=== PATIENT | female | born 1980 | race Caucasian/White ===

== ENCOUNTER → 2020-02-05 13:51 | Outpatient (BNVA) | payer OTHER, SELFPAY | PROVIDERS: Visit Provider Nurse Practitioner Gerontology | DX: E11.42 Type 2 diabetes mellitus with diabetic polyneuropathy (principal); Z79.4 Long term (current) use of insulin; E78.5 Hyperlipidemia, unspecified; E66.09 Other obesity due to excess calories; Z68.32 Body mass index [BMI] 32.0-32.9, adult | CPT/HCPCS: 82947; 99214 ==

== ENCOUNTER → 2020-03-16 14:05 | Outpatient (BNVA) | payer OTHER, SELFPAY | PROVIDERS: Referring Provider Internal Medicine; Visit Provider Nurse Practitioner Gerontology | DX: Z76.89 Persons encountering health services in other specified circumstances (principal) ==

== ENCOUNTER → 2020-05-02 11:17 | Outpatient (BNVA) | payer OTHER, SELFPAY | PROVIDERS: PCP Internal Medicine; Visit Provider Nurse Practitioner Gerontology | DX: Z76.89 Persons encountering health services in other specified circumstances (principal) ==

== ENCOUNTER → 2020-05-18 13:51 | Outpatient (BNVA) | payer OTHER, SELFPAY | PROVIDERS: PCP Internal Medicine; Visit Provider Nurse Practitioner Gerontology ==

== ENCOUNTER 2020-06-02 08:17 | Outpatient (REF) | payer OTHER, SELFPAY ==
[2020-06-02 09:17] LABS: Alanine Aminotransferase 9 U/L (0-31); Albumin Level 4.4 g/dL (3.5-5.0); Alkaline Phosphatase 100 U/L (39-117); Anion Gap 14 (12-20); Aspartate Amino Transferase 8 U/L (5-31); Bilirubin Total 0.2 mg/dL (0.0-1.0); Blood Urea Nitrogen 22 mg/dL (9-16); Calcium 9.7 mg/dL (8.4-10.2); Carbon Dioxide 25 mmol/L (22-29); Chloride 103 mmol/L (96-108); Cholesterol 186 mg/dL; Estimated Glomerular Filt Rate > 60; Glucose Fasting 215 mg/dL (60-99); HDL Cholesterol 36 mg/dL; LDL Cholesterol Calculated 115 mg/dl; Sodium 138 mmol/L (135-145); Total Protein 7.2 g/dL (6.5-8.0); Triglycerides 176 mg/dL
[2020-06-02 09:19] LABS: Estimated Average Glucose 278 mg/dL; Hemoglobin A1c % 11.3 %
[2020-06-02 10:09] LABS: Creatinine Urine 325.31 mg/dL; Microalbum/Creatinine Ratio Ur 94.6 ug/mg cr
[2020-06-03 04:52] LABS: LDL Cholesterol Direct 126 mg/dL (<100)
[2020-06-03 23:06] LABS: Adrenocorticotropic Hormone <5 pg/mL (6-50)
[2020-06-08 09:33] LABS: Dexamethasone 109 ng/dL
== END 2020-06-02 08:18 | disposition home or self-care (01) ==
LOC: HO.10HDL 08:17
PROVIDERS: Visit Provider Nurse Practitioner Gerontology
DX: E11.42 Type 2 diabetes mellitus with diabetic polyneuropathy (principal); Z79.4 Long term (current) use of insulin
CPT/HCPCS: 36415; 80053; 80061; 80299; 82024; 82043; 82533; 83036; 83721

== ENCOUNTER → 2020-06-29 13:21 | Outpatient (BNVA) | payer OTHER, SELFPAY | PROVIDERS: PCP Internal Medicine; Visit Provider Nurse Practitioner Gerontology ==

== ENCOUNTER → 2020-12-22 09:57 | Outpatient (BNVA) | payer OTHER, SELFPAY | PROVIDERS: PCP Internal Medicine; Visit Provider Nurse Practitioner Gerontology | DX: E11.42 Type 2 diabetes mellitus with diabetic polyneuropathy (principal); E78.5 Hyperlipidemia, unspecified; I10 Essential (primary) hypertension; E66.01 Morbid (severe) obesity due to excess calories; F40.00 Agoraphobia, unspecified; F17.210 Nicotine dependence, cigarettes, uncomplicated; Z68.33 Body mass index [BMI] 33.0-33.9, adult; Z88.8 Allergy status to other drugs, medicaments and biological substances; Z79.4 Long term (current) use of insulin; Z79.899 Other long term (current) drug therapy | CPT/HCPCS: 82947 ==

== ENCOUNTER → 2021-04-13 09:00 | Outpatient (BNVA) | payer MEDICARE, MEDICAID, SELFPAY | PROVIDERS: PCP Internal Medicine; Visit Provider Nurse Practitioner Gerontology | DX: E11.42 Type 2 diabetes mellitus with diabetic polyneuropathy (principal); E78.5 Hyperlipidemia, unspecified; E66.09 Other obesity due to excess calories; I10 Essential (primary) hypertension; M79.89 Other specified soft tissue disorders; Z79.4 Long term (current) use of insulin; Z68.33 Body mass index [BMI] 33.0-33.9, adult | CPT/HCPCS: 82947; 83036; 99212 ==

== ENCOUNTER 2021-04-20 11:49 | Outpatient (REF) | payer MEDICARE, MEDICAID, SELFPAY ==
--- NOTE | ~2021-04-20 | XR_ITS ---
EXAMINATION: XR FOOT, RIGHT CLINICAL INFORMATION: Other specified soft tissue disorders. COMPARISON: None TECHNIQUE: AP, lateral, and oblique views of the right foot. FINDINGS: No fracture. Alignment is anatomic. Joint spaces are maintained. A moderate-sized enthesopathic spur is present at the plantar fascial origin on the calcaneus. XR/XR foot RT min 3V IMPRESSION: No acute osseous abnormalities in the right foot. Moderate-sized plantar calcaneal enthesopathic spur.
[2021-04-20 13:08] LABS: Creatinine Urine 265.48 mg/dL; Microalbum/Creatinine Ratio Ur 112.6 ug/mg cr
[2021-04-20 13:21] LABS: Alanine Aminotransferase 13 U/L (0-31); Albumin Level 4.4 g/dL (3.5-5.0); Alkaline Phosphatase 93 U/L (39-117); Anion Gap 18 (12-20); Aspartate Amino Transferase 13 U/L (5-31); Bilirubin Total 0.6 mg/dL (0.0-1.0); Blood Urea Nitrogen 21 mg/dL (9-16); Carbon Dioxide 20 mmol/L (22-29); Chloride 106 mmol/L (96-108); Cholesterol 179 mg/dL; Estimated Glomerular Filt Rate > 60; Glucose Fasting 172 mg/dL (60-99); HDL Cholesterol 37 mg/dL; LDL Cholesterol Calculated 107 mg/dl; Potassium 4.7 mmol/L (3.3-5.1); Sodium 139 mmol/L (135-145); Total Protein 7.2 g/dL (6.5-8.0); Triglycerides 175 mg/dL
[2021-04-22 10:56] LABS: LDL Cholesterol Direct 131 mg/dL (<100)
[2021-04-22 12:32] LABS: C Peptide 1.24 ng/mL (0.80-3.85)
[2021-04-25 18:26] LABS: Glutamic acid decarboxylase Ab <5 IU/mL (<5)
[2021-04-30 00:16] LABS: Islet Cell Antibody Screen NEGATIVE (NEGATIVE)
== END 2021-04-20 11:50 | disposition home or self-care (01) ==
LOC: HO.XRAY 11:49
PROVIDERS: Visit Provider Nurse Practitioner Gerontology
DX: M79.89 Other specified soft tissue disorders (principal); E11.42 Type 2 diabetes mellitus with diabetic polyneuropathy; Z79.4 Long term (current) use of insulin
CPT/HCPCS: 36415; 73630; 80053; 80061; 82043; 83721; 84681; 86255; 86341

== ENCOUNTER → 2021-05-08 13:12 | Outpatient (BNVA) | payer MEDICARE, MEDICAID, SELFPAY | PROVIDERS: PCP Internal Medicine; Visit Provider Orthopaedic Surgery | DX: E11.42 Type 2 diabetes mellitus with diabetic polyneuropathy (principal); E11.40 Type 2 diabetes mellitus with diabetic neuropathy, unspecified; M79.89 Other specified soft tissue disorders; Z79.4 Long term (current) use of insulin | CPT/HCPCS: 99202 ==

== ENCOUNTER → 2021-06-16 13:09 | Outpatient (BNVA) | payer MEDICARE, MEDICAID, SELFPAY | PROVIDERS: PCP Internal Medicine; Visit Provider Registered Nurse Diabetes Educator | DX: E11.42 Type 2 diabetes mellitus with diabetic polyneuropathy (principal); Z79.4 Long term (current) use of insulin | CPT/HCPCS: 99211 ==

== ENCOUNTER → 2021-06-26 14:35 | Outpatient (BNVA) | payer MEDICARE, MEDICAID, SELFPAY | PROVIDERS: PCP Internal Medicine; Visit Provider Orthopaedic Surgery | DX: E11.40 Type 2 diabetes mellitus with diabetic neuropathy, unspecified (principal); M79.89 Other specified soft tissue disorders | CPT/HCPCS: 99212 ==

== ENCOUNTER → 2021-07-24 15:07 | Outpatient (BNVA) | payer MEDICARE, MEDICAID, SELFPAY | PROVIDERS: PCP Internal Medicine; Visit Provider Registered Nurse Diabetes Educator | DX: E11.42 Type 2 diabetes mellitus with diabetic polyneuropathy (principal); Z79.4 Long term (current) use of insulin | CPT/HCPCS: 99211 ==

== ENCOUNTER → 2021-07-26 14:32 | Outpatient (BNVA) | payer MEDICARE, MEDICAID, SELFPAY | PROVIDERS: PCP Internal Medicine; Visit Provider Nurse Practitioner Gerontology | DX: E11.42 Type 2 diabetes mellitus with diabetic polyneuropathy (principal); E78.5 Hyperlipidemia, unspecified; E66.01 Morbid (severe) obesity due to excess calories; Z68.33 Body mass index [BMI] 33.0-33.9, adult; I10 Essential (primary) hypertension; M79.89 Other specified soft tissue disorders; Z79.4 Long term (current) use of insulin; Z71.3 Dietary counseling and surveillance | CPT/HCPCS: 82947; 83036; 99212 ==

== ENCOUNTER → 2021-09-05 14:56 | Outpatient (BNVA) | payer OTHER, MEDICAID, SELFPAY | PROVIDERS: PCP Internal Medicine; Visit Provider Registered Nurse Diabetes Educator | DX: E11.42 Type 2 diabetes mellitus with diabetic polyneuropathy (principal); Z79.4 Long term (current) use of insulin | CPT/HCPCS: 99211 ==

== ENCOUNTER 2021-12-04 15:04 | Outpatient (REF) | payer OTHER, MEDICAID, SELFPAY ==
--- NOTE | ~2021-12-04 | XR_ITS ---
EXAMINATION: XR FOOT, RIGHT CLINICAL INFORMATION: Pain. Diabetic neuropathy. COMPARISON: Previous x-ray March 2021 TECHNIQUE: AP, lateral, and oblique views of the right foot. FINDINGS: Bone alignment is normal. No fracture or dislocation is seen. Joint spaces are normal. There is a small plantar calcaneal spur. Soft tissues are otherwise unremarkable. XR/XR foot RT min 3V IMPRESSION: Plantar calcaneal spur otherwise unremarkable exam.
== END 2021-12-04 15:05 | disposition home or self-care (01) ==
LOC: HO.HOSX 15:04
PROVIDERS: Visit Provider Orthopaedic Surgery
DX: R60.0 Localized edema (principal); M79.89 Other specified soft tissue disorders; E11.40 Type 2 diabetes mellitus with diabetic neuropathy, unspecified
CPT/HCPCS: 73630; 99212

== ENCOUNTER → 2022-01-29 15:39 | Outpatient (BNVA) | payer OTHER, MEDICAID, SELFPAY | PROVIDERS: PCP Internal Medicine; Visit Provider Anesthesiology | DX: E11.51 Type 2 diabetes mellitus with diabetic peripheral angiopathy without gangrene (principal); E11.40 Type 2 diabetes mellitus with diabetic neuropathy, unspecified; M79.89 Other specified soft tissue disorders; E66.09 Other obesity due to excess calories; E11.42 Type 2 diabetes mellitus with diabetic polyneuropathy; Z79.4 Long term (current) use of insulin; Z68.37 Body mass index [BMI] 37.0-37.9, adult | CPT/HCPCS: 99202 ==

== ENCOUNTER → 2022-02-13 15:04 | Outpatient (BNVA) | payer OTHER, MEDICAID, SELFPAY | PROVIDERS: Visit Provider Internal Medicine Endocrinology, Diabetes & Metabolism | DX: E11.42 Type 2 diabetes mellitus with diabetic polyneuropathy (principal); Z79.4 Long term (current) use of insulin | CPT/HCPCS: 82947; 83036; 99212 ==

== ENCOUNTER → 2022-02-22 11:29 | Outpatient (BNVA) | payer OTHER, MEDICAID, SELFPAY | PROVIDERS: Visit Provider Surgery Vascular Surgery | DX: I73.9 Peripheral vascular disease, unspecified (principal) | CPT/HCPCS: 99202 ==

== ENCOUNTER → 2022-03-12 14:27 | Outpatient (BNVA) | payer OTHER, MEDICAID, SELFPAY | PROVIDERS: PCP Internal Medicine; Visit Provider Psychiatry & Neurology Neurology | DX: E11.40 Type 2 diabetes mellitus with diabetic neuropathy, unspecified (principal); R29.898 Other symptoms and signs involving the musculoskeletal system | CPT/HCPCS: 99202 ==

== ENCOUNTER 2022-04-02 13:04 | Outpatient (REF) | payer OTHER, MEDICAID, SELFPAY ==
--- NOTE | ~2022-04-02 | US_ITS ---
EXAMINATION: Noninvasive assessment of the bilateral lower extremities with ARTERIAL DUPLEX and ANKLE BRACHIAL INDICES (ABIs). CLINICAL INFORMATION: Peripheral arterial disease TECHNIQUE: Duplex Doppler techniques with waveform analysis and measurement of velocities in the bilateral common femoral, profunda femoris, superficial femoral, popliteal and tibial arteries were performed. Additionally, ankle pulse volume recordings, ankle pressure measurements and ankle brachial indices were obtained of the lower extremity arterial system bilaterally. The study was performed only at rest. COMPARISON: None FINDINGS: DIRECT DUPLEX DOPPLER FINDINGS: RIGHT LEG: Common femoral artery: 207 cm/s, phasicity: Monophasic Profunda femoris artery: 341 cm/s, phasicity: Monophasic Superficial femoral artery (proximal): 49.8 cm/s, phasicity: Monophasic Superficial femoral artery (mid): 49.2 cm/s, phasicity: Monophasic Superficial femoral artery (distal): 99.2 cm/s, phasicity: Monophasic Popliteal artery: 46.6 cm/s, phasicity: Monophasic Posterior tibial artery: 17.2 cm/s, phasicity: Monophasic Peroneal artery: 8.1 cm/s, phasicity: Monophasic LEFT LEG: Common femoral artery: 233 cm/s, phasicity: Monophasic Profunda femoris artery: 223 cm/s, phasicity: Triphasic Superficial femoral artery (proximal): 149 cm/s, phasicity: Triphasic Superficial femoral artery (mid): 177 cm/s, phasicity: Triphasic Superficial femoral artery (distal): 98.2 cm/s, phasicity: Triphasic Popliteal artery: 110 cm/s, phasicity: Triphasic Posterior tibial artery: 126 cm/s, phasicity: Triphasic Peroneal artery: 37.8 cm/s, phasicity: Monophasic ANKLE-BRACHIAL INDEX: Right: 0.33? Left: 0.88 ANKLE PRESSURES: Right: PT 38, DP 32 Left: PT?95, DP?102 ANKLE PVR WAVEFORMS: Right: Markedly dampened Left: Mildly dampened US/US arterial duplex LE BI IMPRESSION: Right leg: Severely decreased ankle brachial index and pulse volume waveform consistent with severe occlusive disease. Flow is seen within the arterial vessels of the right lower extremity with dampened monophasic waveform seen especially throughout the femoral, popliteal and below-knee runoff vessels. Cannot exclude a nonvisualized occlusion. Further evaluation with CTA or MRA may be a small Left leg: Mildly decreased ankle brachial index and pulse volume waveform. Patent flow is seen throughout the left lower extremity on duplex ultrasound with scattered atherosclerotic plaque but well-maintained multiphasic waveforms. No significant arterial occlusion KEELY Reference: - >1.4 = calcified vessels - 0.9 - 1.4 = normal - no significant arterial disease - 0.7 - 0.89 = mild peripheral arterial disease - 0.51 - 0.69 = moderate peripheral arterial disease - ? 0.50 = severe peripheral arterial disease - < .30 = critical arterial disease
== END 2022-04-02 13:05 | disposition home or self-care (01) ==
LOC: HO.US 13:04
PROVIDERS: Visit Provider Surgery Vascular Surgery
DX: I73.9 Peripheral vascular disease, unspecified (principal)
CPT/HCPCS: 93923; 93925

== ENCOUNTER → 2022-04-04 15:16 | Outpatient (BNVA) | payer OTHER, MEDICAID, SELFPAY | PROVIDERS: PCP Internal Medicine; Visit Provider Registered Nurse Diabetes Educator | DX: E11.42 Type 2 diabetes mellitus with diabetic polyneuropathy (principal); Z79.4 Long term (current) use of insulin | CPT/HCPCS: 99211 ==

== ENCOUNTER → 2022-04-05 15:04 | Outpatient (BNVA) | payer OTHER, MEDICAID, SELFPAY | PROVIDERS: PCP Internal Medicine; Visit Provider Surgery Vascular Surgery | DX: I73.9 Peripheral vascular disease, unspecified (principal) | CPT/HCPCS: 99212 ==

== ENCOUNTER 2022-04-11 06:17 | Day surgery (SDC) | payer OTHER, MEDICAID, SELFPAY ==
[2022-04-11] VITALS (10 sets, daily range): BP systolic 127–189; BP diastolic 72–92; PULSE 80–116; RESP 15–20; TEMP 36.9–37.1; O2SAT 97–100; BMI 39.4
[2022-04-11 06:42] LABS: MANUAL DIFF FLAG NO
[2022-04-11 06:46] LABS: Basophils Absolute Auto 0.1 X10*3/uL (0.0-0.2); Basophils Percent Auto 0.4 % (0-2); Eosinophils Absolute Auto 0.2 X10*3/uL (0.0-0.4); Eosinophils Percent Auto 1.3 % (0-4); Hematocrit 38.4 % (37.0-47.0); Hemoglobin 12.1 g/dl (12.0-16.0); Imm Gran Abs Auto 0.05 X10*3/uL (0.00-0.03); Imm Gran Pct Auto 0.4 % (0.0-0.4); Lymphocytes Absolute Auto 3.7 X10*3/uL (1.2-4.9); Lymphocytes Percent Auto 26.9 % (20-40); Mean Corpuscular HGB Conc 31.5 g/dl (31.0-35.0); Mean Corpuscular Hemoglobin 25.1 pg (27.0-33.0); Mean Corpuscular Volume 79.5 fL (80.0-98.0); Mean Platelet Volume 10.6 fL (9.4-12.3); Monocytes Absolute Auto 0.4 X10*3/uL (0.1-1.2); Monocytes Percent Auto 3.2 % (2-11); Neutrophils Absolute Auto 9.2 x10*3/uL (2.0-8.3); Neutrophils Percent Auto 67.8 % (45-73); Platelet Count 506 X10*3/uL (160-400); Red Blood Count 4.83 X10*6/uL (4.20-5.50); Red Cell Distribution Width 16.6 % (11.0-16.0); White Blood Count 13.6 X10*3/uL (4.8-10.8)
[2022-04-11 06:53] LABS: UPreg QC Valid YES; Urine Pregnancy NEGATIVE (NEGATIVE)
[2022-04-11 07:06] LABS: Blood Urea Nitrogen 15 mg/dL (9-16); Estimated Glomerular Filt Rate > 60
[2022-04-11] MEDS: 0.9 % Sodium Chloride 1,000 ML 100 ML IVCONT (07:14)
[2022-04-11 08:29] LABS: Glucose, Whole Blood 251 mg/dL (60-115)
--- NOTE | 2022-04-11 10:03 | P.OP_ITS ---
Operative Note Operative Note Date of Service: 04/11/22 Narrative: Angiogram report from [facility] Preoperative diagnosis: Atherosclerosis of right lower extremity with activity limiting claudication Postoperative diagnosis: Same Procedure: 1. Ultrasound-guided left common femoral access 2. Aortogram with right lower extremity runoff 3. Atherectomy and plasty of right SFA Surgeon:Vivek Perez M.D., FACS, RPVI National Account Executive:None Anesthesia: Local with moderate conscious sedation. Total intraservice moderate sedation time was 87 minutes. I monitored the patient's level of consciousness and physiologic status continuously throughout the procedure. Specimens:none Drains:none Estimated blood loss: Less than 10 ml Implant: Medtronic Impact DCB 5 x 200; 5 x 120; 5 x 60 Indications: 41-year-old morbidly obese diabetic female with a history of smoking presents with claudication. She has an KEELY of 0.33. She now presents for endovascular intervention The patient has signed the informed consent after reviewing risks, complications, benefits, and alternatives previously discussed with the patient. The patient was given the opportunity to ask any additional questions or voice any concerns. All questions were answered to the patient's satisfaction. Procedure in detail: Patient was brought to the angiography suite prior to which a time-out was called for patient identification and site verification. Bilateral groins were prepped and draped in the standard surgical fashion. Under ultrasound guidance left common femoral was punctured with micro puncture needle and wire. Subsequently a precision 4 Ecuadorean sheath was then placed. Bentson wire was advanced to the level of the aorta. 4 Ecuadorean Flush catheter was brought up and parked at the level of the renal arteries. Aortogram was then undertaken. Catheter was brought down to the level of the iliac bifurcation. Iliacs were subsequently imaged. Catheter was then brought in up and over to the right side SFA. Runoff study was then undertaken. It was recognized that she had a significant SFA occlusion. At this time 7500 units of heparin was administered systemically. After 5 minutes of circulation time and up and over 6 Ecuadorean sheath was then placed. We used an 035 glidewire Advantage to traverse the lesion. We confirmed true lumen with a now be cross catheter. Once this was accomplished we then placed a 5 [place]cu[place]orean spider wire. We did multiple unidirectional passes with a Hawk 1 atherectomy during the entire length of the SFA. Multiple passes of this had to be undertaken. Once this was accomplished we did demonstrate an improvement in lumen but there was still some residual stenosis. We initially plasty this entire area with a 4 x 100 balloon due to the extremely small caliber vessel. This was smaller and there was residual stenosis we made the decision to plasty this entire area with drug coated balloons. We 1st used a 5 x 200 balloon. We subsequently went from distal to more proximal and used a 5 x 120 balloon. And ultimately there was a residual area in the middle of it and we used a 5 x 60 balloon. Completion angiogram demonstrated excellent result. Catheter wire sheath was brought back to the ipsilateral side. StarClose closure device was then deployed. Patient tolerated the procedure well and was returned to recovery with stable vitals. Interpretation of films: 1. Ultrasound demonstrates appropriate femoral puncture. Image of which was saved. 2. Aortogram demonstrates appropriate caliber aorta. Minimal disease. Appropriate take-off of the renals. 3. Iliac images demonstrate no significant stenosis but very small in caliber. 4. Right Leg Common femoral artery: No significant disease Profundus Femoris: No significant disease Superficial femoral artery: Occlusion from the origin all the way up to Walter's canal. Popliteal artery (p1,p2,p3): No significant disease Anterior tibial artery: No significant disease Peroneal artery: No significant disease but diminutive Posterior tibial artery: No significant disease Dorsalis pedis/plantar arch: Completely Conclusion: 1. Successful atherectomy and plasty of right SFA 2. Anticoagulation status: The patient has thrombocytosis and will require a minimum of 6 months of aspirin and Plavix. This note is constructed using voice recognition software. While every effort has been made to ensure accuracy, paste up copy camera operator errors may have been included. Thank you for allowing me to participate in the care of your patient. Yours sincerely, Vivek Perez MD, FACS, R.P.V.I.
[2022-04-11] MEDS: ondansetron HCL 4 MG/2 ML VIAL IVPUSH (10:20)
[2022-04-11] MEDS: Clopidogrel Bisulfate 300 MG TABLET PO (12:26)
== END 2022-04-11 13:09 | disposition home or self-care (01) ==
PROVIDERS: Visit Provider Surgery Vascular Surgery
DX: E11.51 Type 2 diabetes mellitus with diabetic peripheral angiopathy without gangrene (principal); I70.211 Atherosclerosis of native arteries of extremities with intermittent claudication, right leg; E66.09 Other obesity due to excess calories; I10 Essential (primary) hypertension; E78.5 Hyperlipidemia, unspecified; J45.909 Unspecified asthma, uncomplicated; Z79.4 Long term (current) use of insulin; Z88.8 Allergy status to other drugs, medicaments and biological substances; Z86.73 Personal history of transient ischemic attack (TIA), and cerebral infarction without residual deficits; F17.210 Nicotine dependence, cigarettes, uncomplicated; F12.90 Cannabis use, unspecified, uncomplicated
CPT/HCPCS: 36415; 37224; 37225; 76937; 81025; 82565; 82947; 84520; 85025; 99152; 99153; C1714; C1725; C1760; C1769; C1884; C1887; C2623; J2250; J2405; J2550; J3010; Q9967

== ENCOUNTER → 2022-05-01 12:58 | Outpatient (BNVA) | payer OTHER, MEDICAID, SELFPAY | PROVIDERS: Visit Provider Surgery Vascular Surgery | DX: Z48.812 Encounter for surgical aftercare following surgery on the circulatory system (principal); I73.9 Peripheral vascular disease, unspecified | CPT/HCPCS: 99212 ==

== ENCOUNTER 2022-07-20 11:27 | Outpatient (REF) | payer MEDICARE, MEDICAID, SELFPAY ==
[2022-07-20 13:46] LABS: Anion Gap 13 (12-20); Blood Urea Nitrogen 24 mg/dL (9-16); Calcium 9.4 mg/dL (8.4-10.2); Carbon Dioxide 22 mmol/L (22-29); Chloride 110 mmol/L (96-108); Cholesterol 147 mg/dL; Estimated Glomerular Filt Rate > 60; Glucose Random 121 mg/dL (60-115); HDL Cholesterol 48 mg/dL; LDL Cholesterol Calculated 71 mg/dl; Potassium 4.4 mmol/L (3.3-5.1); Sodium 141 mmol/L (135-145); Triglycerides 144 mg/dL
== END 2022-07-20 11:28 | disposition home or self-care (01) ==
LOC: HO.10HDL 11:27
PROVIDERS: Visit Provider Internal Medicine Endocrinology, Diabetes & Metabolism
DX: E11.42 Type 2 diabetes mellitus with diabetic polyneuropathy (principal); Z79.4 Long term (current) use of insulin
CPT/HCPCS: 36415; 80048; 80061; 82947; 83036; 99212

== ENCOUNTER 2022-10-29 14:27 | Outpatient (REF) | payer MEDICARE, MEDICAID, SELFPAY | END 2022-10-29 14:28 | disposition home or self-care (01) | LOC: HO.US 14:27 | PROVIDERS: Visit Provider Surgery Vascular Surgery | DX: I70.213 Atherosclerosis of native arteries of extremities with intermittent claudication, bilateral legs (principal) | CPT/HCPCS: 76706; 93923; 93925 ==

== ENCOUNTER 2022-12-17 15:14 | Outpatient (AMB) | payer MEDICARE, MEDICAID, SELFPAY ==
--- NOTE | 2022-12-17 15:17 | A.OFFVIS_ITS ---
Intake Vital Signs 12/17/22 15:20 Height 5 ft 4 in Intake Visit Reasons: 3 mo follow up Art US 10/29/22 Intake Note: follow up Arterial US 10/29/22 s/p Right LE Angio 04/11/23. Pt states that she has cramping in Right LE with ambulation. Pt states that she was okay for a while and was exercising then she wasnt able to get out as much and has difficulty w/ stairs Accompanied by: Family/Other Allergies metformin Allergy (Unknown, Verified 12/17/22 15:24) dizziness HPI 3 mo follow up Art US 10/29/22 HPI Details Complex 42-year-old female presents for follow-up evaluation regarding peripheral vascular disease. She actually had a right lower extremity intervention performed by me in March of 2022. Since that time her right leg does feel better. Unfortunately she does follow up in wheelchair today. She is having difficulty walking in particular reports pins and needles and generalized discomfort of bilateral lower extremities. Of note she has not had a follow-up with primary care in some time. She has actually canceled several times with us and was scheduled for a 3 month follow-up it is nearly 7 months since the procedure that she actually came back to see us with noninvasive testing. Also of note her last hemoglobin A1c dated 07/20/2022 was 10.5. She has been a diabetic since the age of 27. She continues to smoke about pack a day. [facility] Medical History Agoraphobia Anxiety Asthma Class 1 obesity due to excess calories in adult Depression Hyperlipidemia LDL goal <70 Hypertension Obesity due to excess calories Peripheral neuropathy Stroke Type 2 diabetes mellitus with diabetic polyneuropathy Surgical History History of surgery Family History Mother Diabetes Father Diabetes Brother Hypertension Daughter Hypertension Social History Household Members: Children Alcohol intake: former Patient Tobacco Use Status: Current everyday Tobacco user Tobacco use type: Cigarette Cigarette Packs Per Day: 1 Cigarettes Per Day: 20.0 Substance Use Type: Marijuana Current occupational status: unemployed Review of Systems Const All systems reviewed & are unremarkable except as noted in HPI and below Reports no additional complaints ENT Reports Normal hearing present Card Denies chest pain, Denies chest pain at rest, Denies chest pain with activity and Denies pedal edema Resp Denies cough GI Denies abdominal pain Musc Denies abnormal gait, Denies muscle cramps and Denies radiating pain into limb Skin/Breast Denies skin ulcer and Denies wounds Neuro Reports Normal hearing present and Denies abnormal gait Psych Reports no additional complaints Physical Exam Const General: cooperative, healthy appearing and comfortable Orientation/consciousness: oriented to person, oriented to place and oriented to time HEENT Head: Yes normal to inspection Neck Neck: Yes normal visual inspection Carotids: no bruits Chest Chest palpation & inspection: normal inspection of the chest Resp Effort & Inspection: normal respiratory effort and able to speak in complete sentences Auscultation: clear to auscultation bilaterally, no crackles, no rales, no rhonchi and no wheezes Cardio Other: Palpable bilateral DP pulses Rate: regular rate Rhythm: regular rhythm Heart sounds: S1 normal heart sound present and S2 normal heart sound present Bruits: no carotid bruits Peripheral pulses: Peripheral pulses 2+ throughout GI Inspection: Yes normal to inspection Skin Wounds: no wounds Hair: normal Neuro General: oriented to person, oriented to place and oriented to time Cranial nerves: Yes CN's II-XII intact bilaterally and Yes Normal hearing present Cognition (Neuro): normal cognition Motor exam (neuro): 5/5 motor strength present throughout Extrem Other: venous exam: No significant superficial varicosities or spider telangiectasias, minimal edema General: No clubbing, No cyanosis and No edema Psych Appearance: grossly normal Mental Status: mental status grossly normal Speech and movement: Normal speech and movement present Results Reviewed Results Reviewed: Noninvasive arterial testing dated 10/28/2022 demonstrates KEELY on the right of 0.85 and on the left of 0.85. Written report and images were reviewed. Assessment & Plan Assessment & Plan (1) PAD (peripheral artery disease): Comment: 04/11/2022 atherectomy and plasty of right SFA Code(s): I73.9 - Peripheral vascular disease, unspecified Plan: In short patient has stable PA D. She has palpable arterial pulses an ABIs are within normal limits even though the flow has gone down to monophasic. In the main issue here is compliance. She has not followed up with a doctor. She reports that she did well with gabapentin but actually ran out. She is scheduled for follow-up with a new primary care doc in December. In addition her diabetes is uncontrolled as evidence by her hemoglobin A1c. I did have a serious discussion about her overall care it addition. It is unfortunate that such a young woman has these issues. I do think that her lower extremity discomfort may be more related to neuropathy. I did discuss the importance of risk factor modification in particular control of her diabetes and smoking. She is scheduled for primary care follow-up in December. I did encourage her to keep that. She did report that she was on gabapentin in the past and did have some improvement with that. I did request that she follow up with her primary care team regarding this. In addition should symptoms persist may benefit from a neurologic evaluation. She will follow up with us in approximately 6 months time with noninvasive testing. Thank you for allowing us to assist in her care. If there are any questions or concerns please do not hesitate to contact us. Orders: Orders US arterial duplex LE BI 6 Months I73.9 - Peripheral vascular disease, unspecified Coding Level of Care Code Est Pt Level 4 (46431) Diagnoses PAD (peripheral artery disease) I73.9
== END 2022-12-17 15:41 | disposition home or self-care (01) ==
PROVIDERS: Visit Provider Surgery Vascular Surgery
DX: I73.9 Peripheral vascular disease, unspecified (principal); Z98.62 Peripheral vascular angioplasty status; Z91.148 Patient's other noncompliance with medication regimen for other reason
CPT/HCPCS: 99214

== ENCOUNTER → 2022-12-17 15:14 | Outpatient (BNVA) | payer MEDICARE, MEDICAID, SELFPAY | PROVIDERS: Visit Provider Surgery Vascular Surgery | DX: I73.9 Peripheral vascular disease, unspecified (principal) | CPT/HCPCS: 99212 ==

== ENCOUNTER 2023-06-24 14:57 | Outpatient (REF) | payer MEDICARE, MEDICAID, SELFPAY ==
--- NOTE | ~2023-06-24 | US_ITS ---
EXAMINATION: NONINVASIVE ASSESSMENT OF THE ARTERIES OF BOTH LOWER EXTREMITIES WITH BILATERAL LOWER EXTREMITY DUPLEX Ellen Paredes MD CLINICAL INFORMATION: Peripheral vascular disease TECHNIQUE: Ankle pulse volume recordings, ankle pressure measurements and ankle brachial indices were not obtained due to technical difficulty. Duplex Doppler techniques with wave form analysis and measurement of velocities in the common femoral, profunda femoral, superficial femoral, popliteal and tibial arteries. The study was performed only at rest. COMPARISON: Noninvasive exam on 10/29/2022 FINDINGS: a) AT REST: RIGHT LEG: Common femoral artery: 228 cm/s, monophasic Profunda femoris artery: 116 cm/s, monophasic Superficial femoral artery (proximal): 168 cm/s, monophasic Superficial femoral artery (mid): 163 cm/s, monophasic Superficial femoral artery (distal): 123 cm/s, monophasic Proximal Popliteal artery: 59 cm/s, monophasic Mid posterior tibial artery: 50 cm/s, monophasic LEFT LEG: Common femoral artery: 324 cm/s, Multiphasic Profunda femoris artery: 123 cm/s, Multiphasic Superficial femoral artery (proximal): 152 cm/s, Multiphasic Superficial femoral artery (mid): 149 cm/s, Multiphasic Superficial femoral artery (distal): 60 cm/s, Multiphasic Proximal Popliteal artery: 63 cm/s, Multiphasic Mid posterior tibial artery: 38 cm/s, Multiphasic US/US KEELY complete IMPRESSION: RIGHT LEG: Evidence of inflow disease with monophasic flow throughout the right lower extremity. Similar in appearance to the prior exam. LEFT LEG: Moderate stenoses in the left common femoral artery.
--- NOTE | ~2023-06-24 | US_ITS ---
EXAMINATION: NONINVASIVE ASSESSMENT OF THE ARTERIES OF BOTH LOWER EXTREMITIES WITH BILATERAL LOWER EXTREMITY DUPLEX Ellen Paredes MD CLINICAL INFORMATION: Peripheral vascular disease TECHNIQUE: Ankle pulse volume recordings, ankle pressure measurements and ankle brachial indices were not obtained due to technical difficulty. Duplex Doppler techniques with wave form analysis and measurement of velocities in the common femoral, profunda femoral, superficial femoral, popliteal and tibial arteries. The study was performed only at rest. COMPARISON: Noninvasive exam on 10/29/2022 FINDINGS: a) AT REST: RIGHT LEG: Common femoral artery: 228 cm/s, monophasic Profunda femoris artery: 116 cm/s, monophasic Superficial femoral artery (proximal): 168 cm/s, monophasic Superficial femoral artery (mid): 163 cm/s, monophasic Superficial femoral artery (distal): 123 cm/s, monophasic Proximal Popliteal artery: 59 cm/s, monophasic Mid posterior tibial artery: 50 cm/s, monophasic LEFT LEG: Common femoral artery: 324 cm/s, Multiphasic Profunda femoris artery: 123 cm/s, Multiphasic Superficial femoral artery (proximal): 152 cm/s, Multiphasic Superficial femoral artery (mid): 149 cm/s, Multiphasic Superficial femoral artery (distal): 60 cm/s, Multiphasic Proximal Popliteal artery: 63 cm/s, Multiphasic Mid posterior tibial artery: 38 cm/s, Multiphasic US/US arterial duplex LE BI IMPRESSION: RIGHT LEG: Evidence of inflow disease with monophasic flow throughout the right lower extremity. Similar in appearance to the prior exam. LEFT LEG: Moderate stenoses in the left common femoral artery.
== END 2023-06-24 14:58 | disposition home or self-care (01) ==
LOC: HO.US 14:57
PROVIDERS: Visit Provider Surgery Vascular Surgery
DX: I73.9 Peripheral vascular disease, unspecified (principal)
CPT/HCPCS: 93923; 93925

== ENCOUNTER 2023-07-04 15:06 | Outpatient (AMB) | payer MEDICARE, MEDICAID, SELFPAY ==
--- NOTE | 2023-07-04 15:07 | A.OFFVIS_ITS ---
Intake Vital Signs 07/04/23 15:08 Height 5 ft 4 in Weight 211 lb 13.828 oz BMI 36.4 BP 132/70 Blood Pressure Location Lt brachial Position Sitting Pulse 79 Pulse Source Pulse Oximeter Intake Visit Reasons: f/u Type 2 dm /HYPERLIPIDEMIA-confirmed Intake Note: Patient presents today to follow up on D2MT and Hyperlipidemia. Last Diabetic Eye exam: 04/2022 Last Podiatry Visit: Doesn't have one Random Glucose: 366 mg/dl HgA1c: 9.7% Department Mgr Required: No Accompanied by: Mother Allergies metformin Allergy (Unknown, Verified 07/04/23 15:14) dizziness Medication List - Last Reconciled 07/04/23 by Idris Hernandez MD alcohol swabs pad topical QID aspirin 81 mg PO DAILY atorvastatin 80 mg PO BEDTIME blood sugar diagnostic (FreeStyle Lite Strips) As directed four times a day blood-glucose meter (FreeStyle Lite Meter kit) As directed 4 times a day buspirone 10 mg PO BID empagliflozin (Jardiance) 10 mg PO DAILY ezetimibe (Zetia) 10 mg PO DAILY ferrous sulfate 325 mg PO DAILY flash glucose scanning reader ([employer] Vilma 2 [place]) As directed flash glucose sensor (FreeStyle Vilma 2 Sensor kit) As directed - scan four or more times a day fluticasone propionate 220 mcg/actuation 2 puffs PO BID gabapentin 600 mg PO QID PRN hydroxyzine HCl 50 mg PO QID insulin aspart (niacinamide) 100 unit/mL (3 mL) (Fiasp FlexTouch U-100 Insulin) 14 units subcut TID insulin degludec (Tresiba FlexTouch U-200 insulin) 120 units (0.6 mL) subcut BEDTIME 30 days ketone blood test As directed lamotrigine 50 mg PO BID lamotrigine 50 mg PO BID lancets As directed lancets (FreeStyle Lancets) four times a day losartan 25 mg PO DAILY naproxen 500 mg PO BID nystatin topical BID ondansetron HCl 4 mg PO Q8H PRN pen needle, diabetic As directed pen needle, diabetic (BD Ultra-Fine [place] Pen Needle) As directed 4 times a day topiramate 100 mg PO BEDTIME venlafaxine ER 150 mg PO DAILY HPI HPI Comments 2 History of Present Illness Details Patient is 42 yo female with DM type 2 diagnosed at age 27 who presents for continued management of diabetes. Past medical history: DM2, obesity, HLD. neuropathy, agoraphobia Micro and macrovascular complications: +neuropathy, + CVA, Diabetes medications: Tresiba 140 units injection of 120 units at nighttime 8- 12 units of Fiasp prior to meals. CGM: Unfortunately, the patient did not bring her sensor or glucometer to the follow-up visit Hypoglycemia: No , Exercise: not walking much due to pain in foot r for which she is being followed. Eye exam: needs to make appt retinopathy geting laser surgery Laboratory Tests Admitted to [place] with DKA and gastroparesis according to pt 04/13/21 04/20/21 04/20/21 09:24 12:09 12:09 Creatinine 0.99 Estimated GFR > 60 Hgb A1c (Clinic) 9.5 H C-Peptide 1.24 Triglycerides 175 Cholesterol 179 LDL Cholesterol Di rect 131 H LDL Cholesterol, C alc 107 HDL Cholesterol 37 Microalb/Creat Rat io Islet Cell Ab Scre en NEGATIVE BREEZY Antibody <5 04/20/21 12:30 Creatinine Estimated GFR Hgb A1c (Clinic) C-Peptide Triglycerides Cholesterol LDL Cholesterol Di rect LDL Cholesterol, C alc HDL Cholesterol Microalb/Creat Rat io 112.6 Islet Cell Ab Scre en BREEZY Antibody 12/22/20 10:16 Hgb A1c (Clinic) > 14.0 H PFSH Medical History Agoraphobia Anxiety Asthma Class 1 obesity due to excess calories in adult Depression Hyperlipidemia LDL goal <70 Hypertension Obesity due to excess calories Peripheral neuropathy Stroke Type 2 diabetes mellitus with diabetic polyneuropathy Surgical History History of surgery Family History Mother Diabetes Father Diabetes Brother Hypertension Daughter Hypertension Social History Household Members: Children Alcohol intake: former Patient Tobacco Use Status: Current everyday Tobacco user Tobacco use type: Cigarette Cigarette Packs Per Day: 1 Cigarettes Per Day: 20.0 Substance Use Type: Marijuana Current occupational status: unemployed Physical Exam Vital Signs: Last Vital Signs Pulse 79 07/04/23 15:08 BP 132/70 07/04/23 15:08 BMI result Body Mass Index 36.4 Absence of Cushingoid features. Absence of acromegalic features. Neck exam reveals nl size thyroid about 15 gms. No thyroid nodules palpable. No carotid bruits present. Lungs CTA. Heart S1 S2, Reg R/R. No M/R/ G. Skin exam reveals absence of vitiligo or acanthosis nigricans. Abdominal exam reveals Soft NT/ND with NA BS. No organomegaly present. Neck Other: . Extrem Other: Visual exam of foot performed. No ulcerations or open lesions. No onchomycosis, no callouses.Pulses 2 + distally Sensation intact to monofilament exam. Vibratory sensation sensed is DECREASED IN RIGHT LOWER EXTREMITYt with 128 Hz tuning fork Results AMB Hemoglobin A1c AMB Hemoglobin A1c 9.7 % Last Edit by ROMELIA Sanchez on 07/04/23 15:34 Results Reviewed Results Reviewed: Laboratory Last Values Glucose (Clinic) 366 mg/dL (60-115) H* 07/04/23 15:18 Assessment & Plan Assessment & Plan (1) Type 2 diabetes mellitus with diabetic polyneuropathy: Code(s): E11.42 - Type 2 diabetes mellitus with diabetic polyneuropathy Qualifiers: Diabetes mellitus fci insulin use: with intermediate frame tender use Qualified Code(s): E11.42 - Type 2 diabetes mellitus with diabetic polyneuropathy; Z79.4 - ad terminal makeup operator (current) use of insulin Plan: This is a 42-year-old white female with history of type 2 diabetes being treated with Trulicity and basal-bolus insulin poor glycemic control and known microvascular and macrovascular complications namely neuropathy, micro albuminuria and CVA Plan is to have the patient restart the sensor.. Can not make any changes to the patient's regimen because of lack of data. Will have patient meet with health promotion educator for follow-up to possibly discuss insulin pump. A tandem T- slim X 2 might be ideal in light of the gastroparesis because sq wave boluses can be given. , however, patient does have problems manipulating the pump and a iLet pump might be easier for the patient to use. Also asked her to do lipid profile microalbumin to creatinine ratio. Lastly I stopped her Jardiance some light of the episodes of diabetic ketoacidosis. I also filled her keto sticks Orders: Orders AMB Hemoglobin A1c Today E11.42 - Type 2 diabetes mellitus with diabetic polyneuropathy, Z13.9 - Encounter for screening, unspecified Medications: Refilled flash glucose scanning reader (FreeStyle Vilma 2 [place]) As directed 1 ea 0RF E11.42 - Type 2 diabetes mellitus with diabetic polyneuropathy flash glucose sensor (FreeStyle Vilma 2 Sensor kit) As directed - scan four or more times a day 2 ea 6RF E11.42 - Type 2 diabetes mellitus with diabetic polyneuropathy ketone blood test As directed 50 ea 5RF E11.42 - Type 2 diabetes mellitus with diabetic polyneuropathy, Z79.4 - senior care (current) use of insulin Coding Level of Care Code Est Pt Level 4 (62947) Diagnoses Type 2 diabetes mellitus with diabetic polyneuropathy, with long-term current use of insulin E11.42; Z79.4 Diabetes mellitus fci insulin use: with intermediate frame tender use
[2023-07-04 15:08] VITALS: BP 132/70; PULSE 79; BMI 36.4
[2023-07-04 15:23] LABS: Glucose, Whole Blood 366 mg/dL (60-115)
== END 2023-07-04 15:46 | disposition home or self-care (01) ==
PROVIDERS: Visit Provider Internal Medicine Endocrinology, Diabetes & Metabolism
DX: E11.42 Type 2 diabetes mellitus with diabetic polyneuropathy (principal); Z79.4 Long term (current) use of insulin; Z13.9 Encounter for screening, unspecified
CPT/HCPCS: 99214

== ENCOUNTER → 2023-07-04 15:06 | Outpatient (BNVA) | payer MEDICARE, MEDICAID, SELFPAY | PROVIDERS: Visit Provider Internal Medicine Endocrinology, Diabetes & Metabolism | DX: E11.42 Type 2 diabetes mellitus with diabetic polyneuropathy (principal); Z79.4 Long term (current) use of insulin | CPT/HCPCS: 82947; 83036; 99212 ==

== ENCOUNTER 2023-07-18 09:47 | Outpatient (REF) | payer MEDICARE, MEDICAID, SELFPAY ==
[2023-07-18 11:51] LABS: Cholesterol 171 mg/dL (<200); HDL Cholesterol 54 mg/dL (>40)
[2023-07-18 12:04] LABS: LDL Cholesterol Calculated 81 mg/dL (<100); Triglycerides 180 mg/dL (<150)
== END 2023-07-18 09:48 | disposition home or self-care (01) ==
LOC: HO.10HDL 09:47
PROVIDERS: Visit Provider Internal Medicine Endocrinology, Diabetes & Metabolism
DX: E11.42 Type 2 diabetes mellitus with diabetic polyneuropathy (principal); Z79.4 Long term (current) use of insulin
CPT/HCPCS: 36415; 80061

== ENCOUNTER 2023-07-23 15:25 | Outpatient (AMB) | payer MEDICARE, MEDICAID, SELFPAY ==
--- NOTE | 2023-07-23 16:15 | A.OFFVIS_ITS ---
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2) 07/20/22 [facility] Medical History Agoraphobia Anxiety Asthma Class 1 obesity due to excess calories in adult Depression Hyperlipidemia LDL goal <70 Hypertension Obesity due to excess calories Peripheral neuropathy Stroke Type 2 diabetes mellitus with diabetic polyneuropathy Surgical History History of surgery Family History Mother Diabetes Father Diabetes Brother Hypertension Daughter Hypertension Social History Household Members: Children Alcohol intake: former Patient Tobacco Use Status: Current everyday Tobacco user Tobacco use type: Cigarette Cigarette Packs Per Day: 1 Cigarettes Per Day: 20.0 Substance Use Type: Marijuana Current occupational status: unemployed Assessment & Plan Assessment & Plan (1) Type 2 diabetes mellitus with diabetic polyneuropathy: Code(s): E11.42 - Type 2 diabetes mellitus with diabetic polyneuropathy Qualifiers: Diabetes mellitus retirement insulin use: with retirement use Qualified Code(s): E11.42 - Type 2 diabetes mellitus with diabetic polyneuropathy; Z79.4 - senior living (current) use of insulin Plan: Personal Continuous Glucose Monitor: Patients CGM information reviewed Reviewed patient's sensor data: Hypoglycemia: ? 3% Hyperglycemia:? 66% Time in Range:? 31% Average glucose for the last 2 weeks? 237 mg/dL Patient is having some hypoglycemic events after, trying to correct hyperglycemia. Patient has history of DKA, reports it makes her very nervous when her meeting it meter is reading high. Reviewed with patient how to treat hypoglycemia with rule of 15s, recommended when glucose levels over target to drink as much non carbohydrate fluids. Ask patient to bring sliding scale to next visit for review, so we can discussed with Dr. Hernandez cassette correction scale. Reviewed how to interpret trend arrows Reminded patient that to check finger sticks if symptoms do not match sensor reading. Discussed lag time between finger stick and sensor data.? Patient able to insert sensor independently at home without issue.? Pump Assessment: Type of DM: Type 2 Previous DKA: Yes Current Insulin Rx: MDI Patient takes insulin as prescribed: Sometimes Patient? checks BG freestyle Vilma 2 Downloaded meter today? Yes see above Patient? reports glycemic control as: Poor Most recent Hgb A1C: 9.7 % June 2023 Frequency of low BG: Several times weekly Low BG treatment: Fruit juice or candy Frequency of high BG: Daily Does patient check Ketones? Not currently, waiting on ketone strips prescription Has pt been on a pump in the past? No Reviewed insulin pump basics today with Patient. Explained pros and cons of insulin pumps. Showed pt various pumps, infusion sets, and cgms currently available. Reviewed need to wear pump 24/7 and need to change infusion set every 3 days. Also stressed importance of frequent BG checks, 4x daily minimum or use pump that is integrated with CGM.? TDD:185 units Patient demonstrated motivation for continued insulin pump education and understands the need to complete education prior to starting insulin pump for best outcome. Will follow up for continued education. Patient is considering iLet Patient Instructions: DIABETES PROBLEMS HOMECARE INSTRUCTIONS? for High Blood Sugar and When to Test for Ketones Hyperglycemia is the technical term for high blood glucose (blood sugar). High blood sugar happens when the body has too little insulin or when the body can't use insulin properly. What causes hyperglycemia? A number of things can cause hyperglycemia: * If you have type 1, you may not have given yourself enough insulin. ? If you have type 2, your body may have enough insulin, but it is not as effective as it should be. * You ate more than planned or exercised less than planned. * You have stress from an illness, such as a cold or flu. * You have other stress, such as family conflicts or school or dating problems. How to lower your blood sugar level. ? Take medications as directed by physician. ? Drink extra water or noncaffeinated, nonsugared drinks to prevented hydration. ? Exercise if you are not sick However, if your blood sugar is above 250 mg/dl, check your urine for ketones. If you have ketones, do not exercise Exercising when ketones are present may make your blood sugar level go even higher. You'll need to work with your doctor to find the safest way for you to lower your blood sugar level. Regularly check blood sugar or urine for sugar and acetone during illness. Diabetic ketoacidosis (DKA) Is serious condition that can lead to diabetic coma (passing out for a long time) or even . When your cells don't get the glucose they need for energy, your body begins to burn fat for energy, which produces ketones. Ketones are chemicals that the body creates when it breaks down fat to use for energy. The body does this when it doesn?t have enough insulin to use glucose, the body?s normal source of energy. When ketones build up in the blood, they make it more acidic. They are a warning sign that your diabetes is out of control or that you are getting sick. Symptoms of Diabetic Ketoacidosis (DKA) ? DKA usually develops slowly. But when vomiting occurs, this life- threatening condition can develop in a few hours. Early symptoms include the following: ? Thirst or a very dry mouth ? Frequent urination ? High blood glucose (blood sugar) levels ? High levels of ketones in the urine ? Then, other symptoms appear: ? Constantly feeling tired ? Dry or flushed skin ? Nausea, vomiting, or abdominal pain ? (Vomiting can be caused by many illnesses, not just ketoacidosis. If vomiting continues for more than 2 hours, contact your health care provider.) ? Difficulty breathing ? Fruity odor on breath ? A hard time paying attention, or confusion When should you test for ketones? It is advisable to check for ketones under the following conditions when: Your blood glucose is higher than 250mg/dl. Feeling nauseated, throwing up, or have pains in your abdominal region. Have a cold or flu. Have general body fatigue. Feel thirsty or have a very dry mouth. Have flushed skin. Have a fruity breath or a hard time breathing. You feel perplexed or in fog. How to Test Urine for Ketones You can detect ketones with a simple urine test using a test strip, similar to a blood testing strip. Ask your health care provider when and how you should test for ketones. Many experts advise to check your urine for ketones when your blood glucose is more than 250 mg/dl. When you are ill (when you have a cold or the flu, for example), check for ketones every 4 to 6 hours. And check every 4 to 6 hours when your blood sugar is more than 250 mg/dl. Also, check for ketones when you have any symptoms of DKA. How to lower your blood sugar level. ? Take medications as directed by physician. ? Drink extra water or noncaffeinated, nonsugared drinks to prevented hydration. ? Exercise if you are not sick However, if your blood sugar is above 250 mg/dl, check your urine for ketones. If you have ketones, do not exercise Exercising when ketones are present may make your blood sugar level go even higher. You'll need to work with your doctor to find the safest way for you to lower your blood sugar level. Regularly check blood sugar or urine for sugar and acetone during illness Coding Level of Care Code Est Pt Level 1 (56758) Diagnoses Type 2 diabetes mellitus with diabetic polyneuropathy, with long-term current use of insulin E11.42; Z79.4 Diabetes mellitus bed bug exterminator insulin use: with bed bug exterminator use
== END 2023-07-23 16:25 | disposition home or self-care (01) ==
PROVIDERS: Visit Provider Registered Nurse Diabetes Educator
DX: E11.42 Type 2 diabetes mellitus with diabetic polyneuropathy (principal); Z79.4 Long term (current) use of insulin

== ENCOUNTER → 2023-07-23 15:25 | Outpatient (BNVA) | payer MEDICARE, MEDICAID, SELFPAY | PROVIDERS: Visit Provider Registered Nurse Diabetes Educator | DX: E11.42 Type 2 diabetes mellitus with diabetic polyneuropathy (principal); Z79.4 Long term (current) use of insulin | CPT/HCPCS: 99211 ==

== ENCOUNTER 2023-07-30 14:52 | Outpatient (AMB) | payer MEDICARE, MEDICAID, SELFPAY ==
--- NOTE | 2023-07-30 14:54 | MHC.OFFVIS ---
Intake Vital Signs 07/30/23 14:54 Height 5 ft 4 in Intake Visit Reasons: F/U Art US 06/24/23 Intake Note: 6 month follow up Arterial US 06/24/23 w/ Hx of Right Angio 04/11/22. Pt states she has bilateral LE cramping, pt states with ambulation she gets LE pain and does walk short distances but is mostly wheelchair bound. She also states that she has right foot issues Accompanied by: Family/Other Allergies metformin Allergy (Unknown, Verified 07/30/23 15:00) dizziness HPI F/U Art US 06/24/23 HPI Details Very complex 43-year-old female with history of peripheral vascular disease and diabetes presents for routine follow-up. She had a right lower extremity intervention in March of 2022. She has been doing relatively well but does have some mild lower extremity discomfort. She now presents for follow-up with noninvasive testing. Of note her last hemoglobin A1c was 9.7. She continues to smoke about a pack per day. [facility] Medical History Hypertension Obesity due to excess calories Agoraphobia Stroke Asthma Peripheral neuropathy Depression Anxiety Class 1 obesity due to excess calories in adult Hyperlipidemia LDL goal <70 Type 2 diabetes mellitus with diabetic polyneuropathy Surgical History History of surgery Family History Mother Diabetes Father Diabetes Brother Hypertension Daughter Hypertension Social History Household Members: Children Alcohol intake: former Patient Tobacco Use Status: Current everyday Tobacco user Tobacco use type: Cigarette Cigarette Packs Per Day: 1 Cigarettes Per Day: 20.0 Substance Use Type: Marijuana Current occupational status: unemployed Review of Systems Const All systems reviewed & are unremarkable except as noted in HPI and below Reports no additional complaints ENT Reports Normal hearing present Card Denies chest pain, Denies chest pain at rest, Denies chest pain with activity and Denies pedal edema Resp Denies cough GI Denies abdominal pain Musc Denies abnormal gait, Denies muscle cramps and Denies radiating pain into limb Skin/Breast Denies skin ulcer and Denies wounds Neuro Reports Normal hearing present and Denies abnormal gait Psych Reports no additional complaints Physical Exam Const General: cooperative, healthy appearing and comfortable Orientation/consciousness: oriented to person, oriented to place and oriented to time HEENT Head: Yes normal to inspection Neck Neck: Yes normal visual inspection Carotids: no bruits Chest Chest palpation & inspection: normal inspection of the chest Resp Effort & Inspection: normal respiratory effort and able to speak in complete sentences Auscultation: clear to auscultation bilaterally, no crackles, no rales, no rhonchi and no wheezes Cardio Other: Bilateral DP signals Rate: regular rate Rhythm: regular rhythm Heart sounds: S1 normal heart sound present and S2 normal heart sound present Bruits: no carotid bruits GI Inspection: Yes normal to inspection Skin Wounds: no wounds Hair: normal Neuro General: oriented to person, oriented to place and oriented to time Cranial nerves: Yes CN's II-XII intact bilaterally and Yes Normal hearing present Cognition (Neuro): normal cognition Motor exam (neuro): 5/5 motor strength present throughout Extrem Other: venous exam: No significant superficial varicosities or spider telangiectasias, minimal edema General: No clubbing, No cyanosis and No edema Psych Appearance: grossly normal Mental Status: mental status grossly normal Speech and movement: Normal speech and movement present Results Reviewed Results Reviewed: Noninvasive arterial testing demonstrates monophasic flow down the right leg and multi phasic flow down the left leg on the left leg there is concern of moderate stenosis. Assessment & Plan Assessment & Plan (1) PAD (peripheral artery disease): Comment: 04/11/2022 atherectomy and plasty of right SFA Code(s): I73.9 - Peripheral vascular disease, unspecified Plan: In short patient appears to be stable from a peripheral vascular standpoint. She is able to ambulate and do her daily activities. I would recommend that the patient seriously undertake risk factor modification. Hemoglobin A1c is persistently elevated. In addition I encouraged her to walk as she is in the process of getting a scooter. Unfortunately this is quite a young age to be going through all this. Once again we will manage this as conservatively as possible due to her young age. She will follow up with us in approximately 1 year's time with noninvasive testing. Thank you for allowing us to assist in her care. Orders: Orders US KEELY complete 1 Year I73.9 - Peripheral vascular disease, unspecified Coding Level of Care Code Est Pt Level 4 (95869) Diagnoses PAD (peripheral artery disease) I73.9
== END 2023-07-30 15:17 | disposition home or self-care (01) ==
PROVIDERS: Visit Provider Surgery Vascular Surgery
DX: I73.9 Peripheral vascular disease, unspecified (principal)
CPT/HCPCS: 99213

== ENCOUNTER → 2023-07-30 14:52 | Outpatient (BNVA) | payer MEDICARE, MEDICAID, SELFPAY | PROVIDERS: Visit Provider Surgery Vascular Surgery | DX: I73.9 Peripheral vascular disease, unspecified (principal) | CPT/HCPCS: 99212 ==

== ENCOUNTER 2023-08-26 15:07 | Outpatient (AMB) | payer MEDICARE, MEDICAID, SELFPAY ==
--- NOTE | 2023-08-26 16:00 | MHC.AMDMED ---
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 Accompanied by: Mother Allergies metformin Allergy (Unknown, Verified 07/30/23 15:00) dizziness HPI Comprehensive Diabetes Asmnt Most Recent Diabetes Results: Microalb/Creat Ratio 112.6 ug/mg cr 04/20/21 Cholesterol 171 mg/dL (<200) 07/18/23 HDL Cholesterol 54 mg/dL (>40) 07/18/23 Triglycerides 180 mg/dL (<150) H 07/18/23 Creatinine 0.90 mg/dL (0.5-1.4) 07/20/22 Blood Urea Nitrogen 24 mg/dL (9-16) H 07/20/22 Sodium 141 mmol/L (135-145) 07/20/22 Potassium 4.4 mmol/L (3.3-5.1) 07/20/22 Chloride 110 mmol/L (96-108) H 07/20/22 Carbon Dioxide 22 mmol/L (22-29) 07/20/22 Calcium 9.4 mg/dL (8.4-10.2) 07/20/22 AST 13 U/L (5-31) 04/20/21 ALT 13 U/L (0-31) 04/20/21 Total Protein 7.2 g/dL (6.5-8.0) 04/20/21 Albumin 4.4 g/dL (3.5-5.0) 04/20/21 [facility] Medical History Hypertension Obesity due to excess calories Agoraphobia Stroke Asthma Peripheral neuropathy Depression Anxiety Class 1 obesity due to excess calories in adult Hyperlipidemia LDL goal <70 Type 2 diabetes mellitus with diabetic polyneuropathy Surgical History History of surgery Family History Mother Diabetes Father Diabetes Brother Hypertension Daughter Hypertension Social History Household Members: Children Alcohol intake: former Patient Tobacco Use Status: Current everyday Tobacco user Tobacco use type: Cigarette Cigarette Packs Per Day: 1 Cigarettes Per Day: 20.0 Substance Use Type: Marijuana Current occupational status: unemployed Assessment & Plan Assessment & Plan (1) Type 2 diabetes mellitus with diabetic polyneuropathy: Code(s): E11.42 - Type 2 diabetes mellitus with diabetic polyneuropathy Qualifiers: Diabetes mellitus buttermaker continuous churn insulin use: with buttermaker continuous churn use Qualified Code(s): E11.42 - Type 2 diabetes mellitus with diabetic polyneuropathy; Z79.4 - detention (current) use of insulin Plan: Patient at visit to set up an insert Vilma 2 sensor Instructed patient sensors water proof you can shower, or swim do not submerge sensor in water for over 30 minutes Is sensor falls off cannot put back in you need to replace sensor, customer service number given to patient for sensor replacement Sensor placed on the left arm Patient left visit with sensor in warmup Patient did not bring any glucose data. Requested prescriptions Vilma 2 sensors and Fiasp be sent to patient's pharmacy. While at appointment Dr. Hernandez sent prescription to [facility] in [place]. Set up Vilma 2 khai on patient's phone, connected patient to [facility] Reviewed how to interpret trend arrows Reminded patient that to check finger sticks if symptoms do not match sensor reading. Discussed lag time between finger stick and sensor data.? Instructed patient she should always keep blood glucometer for backup testing if needed Reviewed delay of CGM from fingersticks Reminded pt that if symptoms do not match sensor still needs to check fingersticks. Patient Instructions: Patient instruction: CGM provides information on blood glucose control throughout the day, including hyperglycemia and hypoglycemia. ? Continue to monitor blood glucose as instructed. Follow nutrition guidelines provided. Report any discomfort promptly to health care provider. ?Stay well-hydrated. You can bathe ,shower, swim and exercise while wearing the glucose sensor. Do not submerge glucose sensor in water for more than 30 minutes. Patient will follow-up with Diabetes Education in three-month Coding Level of Care Code Est Pt Level 1 (72015) Diagnoses Type 2 diabetes mellitus with diabetic polyneuropathy, with long-term current use of insulin E11.42; Z79.4 Diabetes mellitus group home insulin use: with buttermaker continuous churn use
== END 2023-08-26 16:06 | disposition home or self-care (01) ==
PROVIDERS: PCP Family Medicine; Visit Provider Registered Nurse Diabetes Educator
DX: E11.42 Type 2 diabetes mellitus with diabetic polyneuropathy (principal); Z79.4 Long term (current) use of insulin

== ENCOUNTER → 2023-08-26 15:07 | Outpatient (BNVA) | payer MEDICARE, MEDICAID, SELFPAY | PROVIDERS: Visit Provider Registered Nurse Diabetes Educator | DX: E11.42 Type 2 diabetes mellitus with diabetic polyneuropathy (principal); Z79.4 Long term (current) use of insulin | CPT/HCPCS: 99211 ==

== ENCOUNTER 2023-12-02 15:33 | Outpatient (AMB) | payer MEDICARE, MEDICAID, SELFPAY ==
[2023-12-02 15:36] VITALS: BP 132/84; PULSE 104
--- NOTE | 2023-12-02 15:36 | MHC.OFFVIS ---
Vital Signs 12/02/23 15:36 Height 5 ft 4 in BP 132/84 Blood Pressure Location Rt brachial Position Sitting Pulse 104 H Pulse Source Pulse Oximeter Intake Visit Reasons: Right adrenal nodule-confirmed Intake Note: Established patient present today with new problem, right adrenal nodule. Size Cutter Required: No Accompanied by: Mother and daughter Allergies metformin Allergy (Unknown, Verified 12/02/23 15:43) dizziness Medication List - Last Reconciled 12/02/23 by Idris Hernandez MD alcohol swabs pad topical QID aspirin 81 mg PO DAILY atorvastatin 80 mg PO BEDTIME blood sugar diagnostic (FreeStyle Lite Strips) As directed four times a day blood-glucose meter (FreeStyle Lite Meter kit) As directed 4 times a day buspirone 10 mg PO BID ezetimibe (Zetia) 10 mg PO DAILY ferrous sulfate 325 mg PO DAILY flash glucose scanning reader (FreeStyle Vilma 2 [place]) As directed flash glucose sensor (FreeStyle Vilma 2 Sensor kit) As directed - scan four or more times a day flash glucose sensor (FreeStyle Vilma 2 Sensor kit) As directed change every 14 days fluticasone propionate 220 mcg/actuation 2 puffs PO BID gabapentin 600 mg PO QID PRN glucagon (Gvoke HypoPen 1-Pack) 1 mg (0.2 mL) subcut ONCE hydroxyzine HCl 50 mg PO QID insulin degludec (Tresiba FlexTouch U-200 insulin) 120 units (0.6 mL) subcut BEDTIME 30 days ketone blood test As directed lamotrigine 50 mg PO BID lamotrigine 50 mg PO BID lancets As directed lancets (FreeStyle Lancets) four times a day losartan 25 mg PO DAILY naproxen 500 mg PO BID Novolog FlexPen U-100 Insulin (insulin aspart U-100) 14 units (0.14 mL) subcut TID 30 days NS nystatin topical BID ondansetron HCl 4 mg PO Q8H PRN pen needle, diabetic As directed pen needle, diabetic (BD Ultra-Fine [place] Pen Needle) As directed 4 times a day topiramate 100 mg PO BEDTIME venlafaxine ER 150 mg PO DAILY HPI Comments Details: This is a 43-year-old female followed by endocrinology for management of type 2 diabetes. Today's visit involves the evaluation of an right adrenal mass. Will though I do not have the report, primary care note states MRI characteristics were benign.. Patient does not report any symptoms of pheochromocytoma . There are no symptoms of [place] syndrome. There is no history of hypertension [facility] Medical History (Updated 12/02/23 @ 15:50 by Idris Hernandez MD) Adrenal adenoma Hypertension Obesity due to excess calories Agoraphobia Stroke Asthma Peripheral neuropathy Depression Anxiety Class 1 obesity due to excess calories in adult Hyperlipidemia LDL goal <70 Type 2 diabetes mellitus with diabetic polyneuropathy Surgical History History of surgery Family History Mother Diabetes Father Diabetes Brother Hypertension Daughter Hypertension Social History Household Members: Children Alcohol intake: former Patient Tobacco Use Status: Current everyday Tobacco user Tobacco use type: Cigarette Cigarette Packs Per Day: 1 Cigarettes Per Day: 20.0 Substance Use Type: Marijuana Current occupational status: unemployed Physical Exam Const Other: No cushingoid features Assessment & Plan Assessment & Plan (1) Adrenal adenoma: Code(s): D35.00 - Benign neoplasm of unspecified adrenal gland Category: Medical Plan: This is a 43-year-old white female found to have an incidentally found right adrenal mass. Rule out secretion of adrenal hormones Will obtain a 1 mg dexamethasone suppression test with dexamethasone level, plasma metanephrines. Will try to obtain the MRI and CT report from [place]. Further workup and imaging will be dictated by the above Orders: Orders Metanephrines, Plasma Today D35.00 - Benign neoplasm of unspecified adrenal gland DHEA Sulfate Today D35.00 - Benign neoplasm of unspecified adrenal gland Cortisol Random 1 Week D35.00 - Benign neoplasm of unspecified adrenal gland Dexamethasone 1 Week D35.00 - Benign neoplasm of unspecified adrenal gland Medications: New dexamethasone 1 mg PO DAILY 1 tab 0RF Coding Level of Care Code Est Pt Level 3 (36626) Diagnoses Adrenal adenoma D35.00
== END 2023-12-02 16:19 | disposition home or self-care (01) ==
PROVIDERS: PCP Family Medicine; Visit Provider Internal Medicine Endocrinology, Diabetes & Metabolism
DX: D35.00 Benign neoplasm of unspecified adrenal gland (principal)
CPT/HCPCS: 99213

== ENCOUNTER → 2023-12-02 15:33 | Outpatient (BNVA) | payer MEDICARE, MEDICAID, SELFPAY | PROVIDERS: PCP Family Medicine; Visit Provider Internal Medicine Endocrinology, Diabetes & Metabolism | DX: D35.00 Benign neoplasm of unspecified adrenal gland (principal); E11.9 Type 2 diabetes mellitus without complications | CPT/HCPCS: 99212 ==

== ENCOUNTER 2023-12-03 12:04 | Outpatient (REF) | payer MEDICARE, MEDICAID, SELFPAY ==
[2023-12-03 13:05] LABS: Cortisol Random 11.8 ug/dL
== END 2023-12-03 12:05 | disposition home or self-care (01) ==
LOC: HO.LAB 12:04
PROVIDERS: PCP Family Medicine; Visit Provider Internal Medicine Endocrinology, Diabetes & Metabolism
DX: D35.00 Benign neoplasm of unspecified adrenal gland (principal)
CPT/HCPCS: 36415; 82533; 83835

== ENCOUNTER 2023-12-09 07:42 | Outpatient (REF) | payer MEDICARE, MEDICAID, SELFPAY ==
[2023-12-09 11:43] LABS: Cortisol Random < 1.0 ug/dL
[2023-12-09 11:49] LABS: Creatinine Urine 37.89 mg/dL
[2023-12-10 17:29] LABS: DHEA Sulfate 74 mcg/dL (15-205)
[2023-12-21 23:28] LABS: Dexamethasone 194 ng/dL
== END 2023-12-09 07:43 | disposition home or self-care (01) ==
LOC: HO.WFDLDS 07:42
PROVIDERS: Visit Provider Internal Medicine Endocrinology, Diabetes & Metabolism
DX: D35.00 Benign neoplasm of unspecified adrenal gland (principal); E11.42 Type 2 diabetes mellitus with diabetic polyneuropathy; Z79.4 Long term (current) use of insulin
CPT/HCPCS: 36415; 80299; 82043; 82533; 82570; 82627

== ENCOUNTER 2023-12-27 14:15 | Outpatient (AMB) | payer MEDICARE, MEDICAID, SELFPAY ==
--- NOTE | 2023-12-27 14:17 | A.OFFVIS_ITS ---
Vital Signs 12/27/23 14:19 Height 5 ft 4 in BMI Reason not done Patient refused/unable BP 130/78 Blood Pressure Location Rt brachial Position Sitting Pulse 111 H Pulse Source Pulse Oximeter Intake Visit Reasons: DM/CONFIRMED Intake Note: Patient presents today to re-establish treatment for Type 2 Diabetes Mellitus: Last Diabetic eye exam was on: DUE Last Podiatry exam was on: Does not see a Engraver [employer]ware Most recent HbA1c: 10.1%, 12/27/2023 Random Glucose- 300 mg/dL, Today Restaurant Worker Required: No Accompanied by: Self / Same As Patient Allergies metformin Allergy (Unknown, Verified 12/27/23 14:18) dizziness HPI Comments Details: Details Patient is 42 yo female with DM type 2 diagnosed at age 27 who presents for continued management of diabetes. By Dr. Hernandez for diabetes July 2023. She was seen several weeks ago for evaluation of adrenal mass. Cortisol level suppressed down after dexamethasone tablet the night before. Plasma metanephrines need to be repeated. Jardiance was recently stopped in light of history of DKA. She reports Trulicity also triggered DKA. She has prior admissions to [facility] for DKA/gastroparesis. No current GI symptoms. Insulin antibodies/GERD were negative C-peptide was 1.24 in 2020 confirming type 2 diabetes. Past medical history: DM2, obesity, HLD. neuropathy, agoraphobia Micro and macrovascular complications: +neuropathy, + CVA, Diabetes medications: Tresiba 140 units units at nighttime 12-16 units of Fiasp prior to meals. takes 8 units if light meal Sugars were doing better when she was on NovoLog. She is to having difficulty remembering to take the insulin 15 minutes before meals and when she does she often forgets to eat afterwards CGM: freestyle joon average 251 , Exercise: not walking much uses wheel chair Eye exam: needs to make appt retinopathy needs to make appt [facility] Medical History Adrenal adenoma Hypertension Obesity due to excess calories Agoraphobia Stroke Asthma Peripheral neuropathy Depression Anxiety Class 1 obesity due to excess calories in adult Hyperlipidemia LDL goal <70 Type 2 diabetes mellitus with diabetic polyneuropathy Surgical History History of surgery Family History Mother Diabetes Father Diabetes Brother Hypertension Daughter Hypertension Social History Household Members: Children Alcohol intake: former Patient Tobacco Use Status: Current everyday Tobacco user Tobacco use type: Cigarette Cigarette Packs Per Day: 1 Cigarettes Per Day: 20.0 Substance Use Type: Marijuana Current occupational status: unemployed Physical Exam Const Other: Absence of Cushingoid features. Absence of acromegalic features. Neck exam reveals nl size thyroid about 15 gms. No thyroid nodules palpable. Heart S1 S2, Reg R/R. No M/R G. Skin exam reveals absence of vitiligo or acanthosis nigricans. No edema Results AMB Hemoglobin A1c AMB Hemoglobin A1c 10.1 % Last Edit by ROMELIA Cortés on 12/27/23 14:5 4 Results Reviewed Results Reviewed: Laboratory Last Values Glucose (Clinic) 300 mg/dL (60-115) H 12/27/23 14:33 Hgb A1c (Clinic) 10.1 % (4.0-6.0) H 12/27/23 14:39 Assessment & Plan Assessment & Plan (1) Type 2 diabetes mellitus with diabetic polyneuropathy: Code(s): E11.42 - Type 2 diabetes mellitus with diabetic polyneuropathy Category: Medical Qualifiers: Diabetes mellitus prison insulin use: with long distance operator use Qualified Code(s): E11.42 - Type 2 diabetes mellitus with diabetic polyneuropathy; Z79.4 - terminal make up operator (current) use of insulin Plan: Type 2 diabetic on basal bolus insulin with poor control with complications of vascular disease, retinopathy, neuropathy and nephropathy. She sees both vascular and Nephrology on an annual basis and we will schedule these along with an eye exam. We will trial Actos 15 mg and increase her sliding scale by 4 units. She will monitor her glucose by freestyle. We will send a prescription to [facility] to see if this can be approved by insurance. This insulin can be taken right before the meals. She is having difficulty remembering to wait 15 minutes with the NovoLog and if she does weight sometimes forgets to eat. Having an immediate acting insulin may improve her glycemic control. She will repeat plasma metanephrines and follow up with Dr. Hernandez to review results to evaluate adrenal mass. She did suppress down after a dexamethasone test. I will see the patient back in approximately 6 weeks' time but she will call me in 2 weeks to report how her sugars are doing Orders: Orders AMB Hemoglobin A1c Today E11.42 - Type 2 diabetes mellitus with diabetic polyneuropathy, Z79.4 - [facility] (current) use of insulin Metanephrines, Plasma 1 Day D35.00 - Benign neoplasm of unspecified adrenal gland Catecholamines, Frac., Plasma 1 Day D35.00 - Benign neoplasm of unspecified adrenal gland Medications: New insulin glulisine U-100 (Apidra SoloStar U-100 Insulin) 16-22 units tid before meals per scale subcutaneously use as directed; 20 mL 6RF 30 days E11.42 - Type 2 diabetes mellitus with diabetic polyneuropathy, Z79.4 - [facility] (current) use of insulin acetone (urine) test (Ketone Urine Test strips) As directed prn glucose over 300, illness, nausea, vomiting tid prn 25 ea 1RF E11.42 - Type 2 diabetes mellitus with diabetic polyneuropathy, Z79.4 - [facility] (current) use of insulin pioglitazone (Actos) 15 mg PO DAILY 30 days 30 tabs 5RF E11.42 - Type 2 diabetes mellitus with diabetic polyneuropathy, Z79.4 - [facility] (current) use of insulin Patient Instructions: The patient was counseled to always carry a source of sugar and on the rule of 15's: Take 3 glucose tablets and repeat again in 15 minutes if blood sugar is not in normal range. Continue to repeat every 15 minutes until blood sugar is normal. The patient was counseled to achieve a target A1C of 7% (154 avg). Fasting blood sugars should be 90-130 in the morning and less than 180 two hours after meals. Reviewed the relationship between poor diabetic control and the developement of complications Symptoms of DKA were reviewed: early: frequent urination, dry mouth, fatigue, feeling ill, severe symptoms: ketones in the urine, abdominal pain, nausea, vomiting and weakness. It is important to hydrate with sugar free liquids every 30 minutes and bring the sugars down to normal levels. Coding Level of Care Code Est Pt Level 4 (60892) Complex EM visit Add On G2211 Diagnoses Type 2 diabetes mellitus with diabetic polyneuropathy, with long-term current use of insulin E11.42; Z79.4 Diabetes mellitus long distance operator insulin use: with long distance operator use Time Spent (min) 30 Comment Time spent reviewing labs/provider notes, face to face, chart doc
[2023-12-27 14:19] VITALS: BP 130/78; PULSE 111
[2023-12-27 14:37] LABS: Glucose, Whole Blood 300 mg/dL (60-115)
== END 2023-12-27 14:57 | disposition home or self-care (01) ==
PROVIDERS: PCP Family Medicine; Visit Provider Nurse Practitioner Adult Health
DX: E11.42 Type 2 diabetes mellitus with diabetic polyneuropathy (principal); Z79.4 Long term (current) use of insulin
CPT/HCPCS: 99214; G2211

== ENCOUNTER → 2023-12-27 14:15 | Outpatient (BNVA) | payer MEDICARE, MEDICAID, SELFPAY | PROVIDERS: PCP Family Medicine; Visit Provider Nurse Practitioner Adult Health | DX: E11.42 Type 2 diabetes mellitus with diabetic polyneuropathy (principal); D35.00 Benign neoplasm of unspecified adrenal gland; Z79.4 Long term (current) use of insulin | CPT/HCPCS: 82947; 83036; 99212 ==

== ENCOUNTER 2024-01-06 14:34 | Outpatient (AMB) | payer MEDICARE, MEDICAID, SELFPAY ==
--- NOTE | 2024-01-06 14:37 | MHC.OFFVIS ---
Vital Signs 01/06/24 14:47 Height 5 ft 4 in Weight 216 lb 0.848 oz BMI 37.1 BP 140/76 H Blood Pressure Location Rt radial Position Sitting Pulse 103 H Pulse Source Pulse Oximeter Intake Visit Reasons: f/u adrenal adenoma-confirmed Intake Note: Patient present today for Adrenal Adenoma follow up. 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 Accompanied by: Mother Allergies metformin Allergy (Unknown, Verified 01/06/24 14:51) dizziness fentanyl Adverse Reaction (Unknown, Verified 01/06/24 14:51) Vomiting Medication List - Last Reviewed 01/06/24 by ROMELIA Rich acetone (urine) test (Ketone Urine Test strips) As directed prn glucose over 300, illness, nausea, vomiting tid prn alcohol swabs pad topical QID aspirin 81 mg PO DAILY atorvastatin 80 mg PO BEDTIME blood sugar diagnostic (FreeStyle Lite Strips) As directed four times a day blood-glucose meter (FreeStyle Lite Meter kit) As directed 4 times a day buspirone 10 mg PO BID dexamethasone 1 mg PO DAILY ezetimibe (Zetia) 10 mg PO DAILY ferrous sulfate 325 mg PO DAILY Fiasp FlexTouch U-100 Insulin 100 unit/mL (3 mL) (insulin aspart (niacinamide)) 16-20 units tid before meals subcutaneously use as directed; 30 days NS flash glucose scanning reader (FreeStyle Vilma 2 [place]) As directed flash glucose sensor (FreeStyle Vilma 2 Sensor kit) As directed - scan four or more times a day flash glucose sensor (FreeStyle Vilma 2 Sensor kit) As directed change every 14 days fluticasone propionate 220 mcg/actuation 2 puffs PO BID gabapentin 600 mg PO QID PRN glucagon (Gvoke HypoPen 1-Pack) 1 mg (0.2 mL) subcut ONCE hydroxyzine HCl 50 mg PO QID insulin degludec (Tresiba FlexTouch U-200 insulin) 120 units (0.6 mL) subcut BEDTIME 30 days insulin glulisine U-100 (Apidra SoloStar U-100 Insulin) 16-22 units tid before meals per scale subcutaneously use as directed; 30 days ketone blood test As directed lamotrigine 50 mg PO BID lamotrigine 50 mg PO BID lancets As directed lancets (FreeStyle Lancets) four times a day losartan 25 mg PO DAILY naproxen 500 mg PO BID Novolog FlexPen U-100 Insulin (insulin aspart U-100) 14 units (0.14 mL) subcut TID 30 days NS nystatin topical BID ondansetron HCl 4 mg PO Q8H PRN pen needle, diabetic As directed pen needle, diabetic (BD Ultra-Fine One[place] Pen Needle) As directed 4 times a day pioglitazone (Actos) 15 mg PO DAILY 30 days topiramate 100 mg PO BEDTIME venlafaxine ER 150 mg PO DAILY HPI Comments Details: This is a 43-year-old female followed by endocrinology for management of type 2 diabetes. Today's visit involves the evaluation of an right adrenal mass. I did review the report of the MRI from the primary care provider which showed a it has benign characteristics.. Patient does not report any symptoms of pheochromocytoma . There are no symptoms of [place] syndrome. There is no history of hypertension [facility] Medical History Adrenal adenoma Hypertension Obesity due to excess calories Agoraphobia Stroke Asthma Peripheral neuropathy Depression Anxiety Class 1 obesity due to excess calories in adult Hyperlipidemia LDL goal <70 Type 2 diabetes mellitus with diabetic polyneuropathy Surgical History History of surgery Family History Mother Diabetes Father Diabetes Brother Hypertension Daughter Hypertension Social History Household Members: Children Alcohol intake: former Patient Tobacco Use Status: Current everyday Tobacco user Tobacco use type: Cigarette Cigarette Packs Per Day: 1 Cigarettes Per Day: 20.0 Substance Use Type: Marijuana Current occupational status: unemployed Physical Exam Vital Signs: BMI result Body Mass Index 37.1 Assessment & Plan Assessment & Plan (1) Adrenal adenoma: Code(s): D35.00 - Benign neoplasm of unspecified adrenal gland Category: Medical Plan: This is a 43-year-old white female found to have an incidentally found right adrenal mass. MRI characteristics show benign. Dexamethasone suppression test was normal. Plasma metanephrines were not performed Will obtain plasma metanephrines and normetanephrines . She will follow up with MIKE Hernandez and Deb for her diabetes Coding Level of Care Code Est Pt Level 3 (21072) Diagnoses Adrenal adenoma D35.00
[2024-01-06 14:47] VITALS: BP 140/76; PULSE 103; BMI 37.1
== END 2024-01-06 15:13 | disposition home or self-care (01) ==
PROVIDERS: PCP Family Medicine; Visit Provider Internal Medicine Endocrinology, Diabetes & Metabolism
DX: D35.00 Benign neoplasm of unspecified adrenal gland (principal)
CPT/HCPCS: 99213

== ENCOUNTER → 2024-01-06 14:34 | Outpatient (BNVA) | payer MEDICARE, MEDICAID, SELFPAY | PROVIDERS: PCP Family Medicine; Visit Provider Internal Medicine Endocrinology, Diabetes & Metabolism | DX: D35.00 Benign neoplasm of unspecified adrenal gland (principal) | CPT/HCPCS: 99212 ==

== ENCOUNTER 2024-01-20 16:15 | Outpatient (AMB) | payer MEDICARE, MEDICAID, SELFPAY ==
[2024-01-20 16:17] VITALS: BP 160/74; PULSE 98; O2SAT 96
--- NOTE | 2024-01-20 16:17 | HO.NEPHOV ---
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 Production Required: No Accompanied by: Mother Allergies metformin Allergy (Unknown, Verified 01/21/24 16:08) dizziness fentanyl Adverse Reaction (Unknown, Verified 01/21/24 16:08) Vomiting Medication List - Last Reconciled 01/28/24 by Vega Guardado MD acetone (urine) test (Ketone Urine Test strips) As directed prn glucose over 300, illness, nausea, vomiting tid prn aspirin 81 mg PO DAILY atorvastatin 80 mg PO BEDTIME blood sugar diagnostic (FreeStyle Lite Strips) As directed four times a day blood-glucose meter (FreeStyle Lite Meter kit) As directed 4 times a day buspirone 15 mg PO BID ferrous sulfate 325 mg PO DAILY Fiasp FlexTouch U-100 Insulin 100 unit/mL (3 mL) (insulin aspart (niacinamide)) 16-20 units tid before meals subcutaneously use as directed; 30 days NS flash glucose scanning reader (FreeStyle Vilma 2 [place]) As directed flash glucose sensor (FreeStyle Vilma 2 Sensor kit) As directed - scan four or more times a day flash glucose sensor (FreeStyle Vilma 2 Sensor kit) As directed change every 14 days fluticasone propionate 220 mcg/actuation 2 puffs PO BID gabapentin 600 mg PO QID PRN glucagon (Gvoke HypoPen 1-Pack) 1 mg (0.2 mL) subcut ONCE hydroxyzine HCl 50 mg PO QID insulin degludec (Tresiba FlexTouch U-200 insulin) 120 units (0.6 mL) subcut BEDTIME 30 days ketone blood test As directed lamotrigine 50 mg PO BID lancets As directed lancets (FreeStyle Lancets) four times a day losartan 50 mg PO DAILY Novolog FlexPen U-100 Insulin (insulin aspart U-100) 14 units (0.14 mL) subcut TID 30 days NS ondansetron HCl 4 mg PO Q8H PRN pen needle, diabetic As directed pen needle, diabetic (BD Ultra-Fine One[place] Pen Needle) As directed 4 times a day pioglitazone (Actos) 15 mg PO DAILY 30 days topiramate 100 mg PO BEDTIME venlafaxine ER 150 mg PO DAILY HPI Comments Details: . Naila is a pleasant middle-aged woman with a history of longstanding diabetes mellitus type 2 complicated by retinopathy microalbuminuria and neuropathy. 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 She also has hypertension along with hyperlipidemia. She has been referred for further evaluation of proteinuria. Recent urine studies showed about 1.5 g of proteinuria. She was found to have an adrenal adenoma and she has undergone endocrine evaluation and this is deemed to be an incidentaloma. [facility] Medical History Adrenal adenoma Hypertension Obesity due to excess calories Agoraphobia Stroke Asthma Peripheral neuropathy Depression Anxiety Class 1 obesity due to excess calories in adult Hyperlipidemia LDL goal <70 Type 2 diabetes mellitus with diabetic polyneuropathy Surgical History History of surgery Family History Mother Diabetes Father Diabetes Brother Hypertension Daughter Hypertension Social History Household Members: Children Alcohol intake: former Patient Tobacco Use Status: Current everyday Tobacco user Tobacco use type: Cigarette Cigarette Packs Per Day: 1 Cigarettes Per Day: 20.0 Substance Use Type: Marijuana Current occupational status: unemployed Review of Systems Const Denies fever(s) and Denies weight loss Card Denies chest pain Resp Denies cough and Denies hemoptysis GI Denies abdominal pain, Denies diarrhea and Denies nausea Musc Denies back pain Neuro Denies focal weakness Physical Exam Vital Signs: Last Vital Signs Pulse 98 01/20/24 16:17 BP 140/60 H 01/20/24 16:37 Pulse Ox 96 01/20/24 16:17 Oxygen Delivery Method Room Air 01/20/24 16:17 Awake. Comfortable. Neck is supple. Mucosa moist. Lungs air entry equal Heart S1-S2 heard no gallop. Abdomen soft. Extremities no edema. No involuntary movements. No myoclonus. 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: with ferry terminal supervisor use Qualified Code(s): E11.42 - Type 2 diabetes mellitus with diabetic polyneuropathy; Z79.4 - penitentiary (current) use of insulin (2) Adrenal adenoma: Comment: Most likely an incidentaloma Code(s): D35.00 - Benign neoplasm of unspecified adrenal gland Category: Medical (3) Hypertension: Code(s): I10 - Essential (primary) hypertension Category: Medical (4) PAD (peripheral artery disease): Comment: 04/11/2022 atherectomy and plasty of right SFA Code(s): I73.9 - Peripheral vascular disease, unspecified Category: Medical (5) Proteinuria: Code(s): R80.9 - Proteinuria, unspecified Category: Medical Plan . Middle-aged woman with longstanding diabetes mellitus with proteinuria. Renal function is normal at baseline with a baseline creatinine of 0.9 mg/dL. Proteinuria is most likely due to underlying diabetic nephropathy. Goal is to slow the progression of renal disease. I would maximize the HUONG inhibition. Maintain blood pressure less than 130/80. She is not on any SGLT2 inhibitors due to history of DKA. Encouraged her to stay on low-sodium diet Increase p.o. fluid intake Continue to optimize blood sugar. Further workup will depend on the outcome of the baseline investigations with the outlined. I will follow closely along with the team. Orders: Orders Basic Metabolic Panel 3 Months E11.42 - Type 2 diabetes mellitus with diabetic polyneuropathy, Z79.4 - penitentiary (current) use of insulin Total Protein Urine Random 3 Months E11.42 - Type 2 diabetes mellitus with diabetic polyneuropathy, Z79.4 - buttermaker helper (current) use of insulin Creatinine Urine 3 Months E11.42 - Type 2 diabetes mellitus with diabetic polyneuropathy, Z79.4 - buttermaker helper (current) use of insulin Medications: Changed From losartan 25 mg PO DAILY To losartan 50 mg PO DAILY 90 tabs 1RF Coding Level of Care Code New Pt Level 4 (81105) Diagnoses Type 2 diabetes mellitus with diabetic polyneuropathy, with long-term current use of insulin E11.42; Z79.4 Diabetes mellitus ferry terminal supervisor insulin use: with ferry terminal supervisor use Adrenal adenoma D35.00 Hypertension I10 PAD (peripheral artery disease) I73.9 Proteinuria R80.9
[2024-01-20 16:37] VITALS: BP 140/60
== END 2024-01-20 16:42 | disposition home or self-care (01) ==
PROVIDERS: PCP Family Medicine; Referring Provider Internal Medicine Endocrinology, Diabetes & Metabolism; Visit Provider Internal Medicine Hypertension Specialist
DX: E11.42 Type 2 diabetes mellitus with diabetic polyneuropathy (principal); Z79.4 Long term (current) use of insulin; D35.00 Benign neoplasm of unspecified adrenal gland; I10 Essential (primary) hypertension; I73.9 Peripheral vascular disease, unspecified; R80.9 Proteinuria, unspecified
CPT/HCPCS: 99204

== ENCOUNTER → 2024-01-20 16:15 | Outpatient (BNVA) | payer MEDICARE, MEDICAID, SELFPAY | PROVIDERS: PCP Family Medicine; Referring Provider Internal Medicine Endocrinology, Diabetes & Metabolism; Visit Provider Internal Medicine Hypertension Specialist | DX: E11.21 Type 2 diabetes mellitus with diabetic nephropathy (principal); E11.319 Type 2 diabetes mellitus with unspecified diabetic retinopathy without macular edema; E11.51 Type 2 diabetes mellitus with diabetic peripheral angiopathy without gangrene; E11.42 Type 2 diabetes mellitus with diabetic polyneuropathy; E78.5 Hyperlipidemia, unspecified; I10 Essential (primary) hypertension; R80.9 Proteinuria, unspecified; D35.00 Benign neoplasm of unspecified adrenal gland; Z79.4 Long term (current) use of insulin; Z86.73 Personal history of transient ischemic attack (TIA), and cerebral infarction without residual deficits | CPT/HCPCS: 99202 ==

== ENCOUNTER 2024-01-21 16:03 | Outpatient (AMB) | payer MEDICARE, MEDICAID, SELFPAY ==
--- NOTE | 2024-01-21 14:17 | A.OFFVIS_ITS ---
Vital Signs 01/21/24 16:13 Height 5 ft 4 in BMI Reason not done Patient refused/unable BP 130/80 Blood Pressure Location Rt brachial Position Sitting Pulse 100 Pulse Source Pulse Oximeter Intake Visit Reasons: DM F/U NEEDS ROOM 5/CONFIRMED Intake Note: Patient presents today for a follow-up on Type 2 Diabetes Mellitus: Last Diabetic eye exam was on: DUE Last Podiatry exam was on: Does not see a Molding Technician Most recent HbA1c: 10.1%, 12/27/2023 Random Glucose- 105 mg/dL, Today, recheck 79 mg/dL 4:40 PM patient declined furthur fingerstick. She consumed one glucose tablet and 10 carbohydrate grams of gingerale. Monitor Technician Required: No Accompanied by: Other Relationship Allergies metformin Allergy (Unknown, Verified 01/21/24 16:08) dizziness fentanyl Adverse Reaction (Unknown, Verified 01/21/24 16:08) Vomiting HPI Comments Details: Patient is 42 yo female with DM type 2 diagnosed at age 27 who presents for continued management of diabetes. By Dr. Hernandez for diabetes July 2023 and by myself one month ago. She was also seen several weeks ago by Dr. Hernandez for evaluation of adrenal mass. Cortisol level suppressed down after dexamethasone tablet the night before. Plasma metanephrines need to be repeated. Most recent A1C was 10.1% 12/27/23. SHe has a long standing history of poorly controlled dm. She had a teeth extraction and has not been eating many carb grams consuming mainly protein shakes and eggs. Jardiance was stopped in light of history of DKA. She reports Trulicity also triggered DKA. Novolog was not controlling glucose and she was changed to Fiasp. She has prior admissions to [facility] for DKA/gastroparesis. No current GI symptoms. Insulin antibodies/GERD were negative C-peptide was 1.24 in 2020 confirming type 2 diabetes. Past medical history: DM2, obesity, HLD. neuropathy, agoraphobia Micro and macrovascular complications: +neuropathy, + CVA, Denies retinopathy: Last eye exam: + Nephropathy: 11/2023 macroalbuminuria 578 eGFR >60 2022 due Diabetes medications: Tresiba 140 units at nighttime Fiasp 12-18 units prior to meals. takes 8 units if light meal +4 units over 300 She often forgets to take insulin before the meals Freestyle joon average was 131 with 7 lows over the past week due to decreased carb intake (had dental extraction with sutures) , Exercise: not walking much uses wheel chair + retinopathy: needs to make appt [facility] Medical History Adrenal adenoma Hypertension Obesity due to excess calories Agoraphobia Stroke Asthma Peripheral neuropathy Depression Anxiety Class 1 obesity due to excess calories in adult Hyperlipidemia LDL goal <70 Type 2 diabetes mellitus with diabetic polyneuropathy Surgical History History of surgery Family History Mother Diabetes Father Diabetes Brother Hypertension Daughter Hypertension Social History Household Members: Children Alcohol intake: former Patient Tobacco Use Status: Current everyday Tobacco user Tobacco use type: Cigarette Cigarette Packs Per Day: 1 Cigarettes Per Day: 20.0 Substance Use Type: Marijuana Current occupational status: unemployed Physical Exam Vital Signs: Last Vital Signs Pulse 100 01/21/24 16:13 BP 130/80 01/21/24 16:13 Results Reviewed Results Reviewed: Laboratory Last Values Glucose (Clinic) 79 mg/dL (60-115) 01/21/24 16:41 Laboratory Tests 04/20/21 04/20/21 07/04/23 12:09 12:30 15:21 Hgb A1c (Clinic) 9.7 H Triglycerides Cholesterol LDL Cholesterol, Calc HDL Cholesterol Urine Microalbumin 299.0 Microalb/Creat Ratio 112.6 Islet Cell Ab Screen NEGATIVE BREEZY Antibody <5 07/18/23 12/09/23 12/27/23 09:48 07:55 14:39 Hgb A1c (Clinic) 10.1 H Triglycerides 180 H Cholesterol 171 LDL Cholesterol, Calc 81 HDL Cholesterol 54 Urine Microalbumin 578.0 Microalb/Creat Ratio 1525.4 H Islet Cell Ab Screen BREEZY Antibody Assessment & Plan Assessment & Plan (1) Type 2 diabetes mellitus with diabetic polyneuropathy: Code(s): E11.42 - Type 2 diabetes mellitus with diabetic polyneuropathy Category: Medical Qualifiers: Diabetes mellitus extermination supervisor insulin use: with extermination supervisor use Qualified Code(s): E11.42 - Type 2 diabetes mellitus with diabetic polyneuropathy; Z79.4 - senior care (current) use of insulin Plan: 43 year old type 2 diabetic with nephropathy (macroalbuminuria) and neuropathy with recent low glucose secondary to decreased carbohydrate intake. Will reduce insulin Tresiba 130 units at nighttime Fiasp 12-18 units prior to meals breakfast and supper, lunch 10-16 units, takes 8 units if light meal stop +4 unit coverage for over 300. She was asked to add carbohydrate source to each meal. Instead of eggs, to add a pureed fruit or sweet potato, add blended fruit to a protein shake. She will see fine jewelry sales associate early next week. She is to call the office for any additional lows glucose. Orders: Orders Metanephrines, Plasma Today D35.00 - Benign neoplasm of unspecified adrenal gland Catecholamines, Frac., Plasma Today D35.00 - Benign neoplasm of unspecified adrenal gland Creatinine Today E11.42 - Type 2 diabetes mellitus with diabetic polyneuropathy, Z79.4 - tank terminal gauger (current) use of insulin B Type Natriuretic Peptide Today E11.42 - Type 2 diabetes mellitus with diabetic polyneuropathy, Z79.4 - tank terminal gauger (current) use of insulin Medications: Refilled acetone (urine) test (Ketone Urine Test strips) As directed prn glucose over 300, illness, nausea, vomiting tid prn 25 ea 1RF E11.42 - Type 2 diabetes mellitus with diabetic polyneuropathy, Z79.4 - senior care (current) use of insulin insulin degludec (Tresiba FlexTouch U-200 insulin) 120 units (0.6 mL) subcut BEDTIME 30 days 18 mL 5RF Fiasp FlexTouch U-100 Insulin 100 unit/mL (3 mL) (insulin aspart (niacinamide)) 16-20 units tid before meals subcutaneously use as directed; 30 days 16 mL 6RF NS E11.42 - Type 2 diabetes mellitus with diabetic polyneuropathy, Z79.4 - tank terminal gauger (current) use of insulin Discontinued insulin glulisine U-100 (Apidra SoloStar U-100 Insulin) Discontinued Reason: Doctor's Order 16-22 units tid before meals per scale subcutaneously use as directed; 30 days 20 mL 6RF E11.42 - Type 2 diabetes mellitus with diabetic polyneuropathy, Z79.4 - tank terminal gauger (current) use of insulin Patient Instructions: The patient was counseled to always carry a source of sugar and on the rule of 15's: Take 3 glucose tablets and repeat again in 15 minutes if blood sugar is not in normal range. Continue to repeat every 15 minutes until blood sugar is normal. The patient was counseled to achieve a target A1C of 7% (154 avg). Fasting blood sugars should be 90-130 in the morning and less than 180 two hours after meals. Reviewed the relationship between poor diabetic control and the developement of complications Coding Level of Care Code Est Pt Level 4 (71442) COVID testing (G2023) Diagnoses Type 2 diabetes mellitus with diabetic polyneuropathy, with long-term current use of insulin E11.42; Z79.4 Diabetes mellitus mcfp insulin use: with mcfp use Time Spent (min) 35 Comment Time spent reviewing labs/provider notes, face to face, chart doc
[2024-01-21 16:13] VITALS: BP 130/80; PULSE 100
[2024-01-21 16:24] LABS: Glucose, Whole Blood 105 mg/dL (60-115)
[2024-01-21 16:44] LABS: Glucose, Whole Blood 79 mg/dL (60-115)
== END 2024-01-22 07:55 | disposition home or self-care (01) ==
PROVIDERS: PCP Family Medicine; Visit Provider Nurse Practitioner Adult Health
DX: E11.42 Type 2 diabetes mellitus with diabetic polyneuropathy (principal); Z79.4 Long term (current) use of insulin
CPT/HCPCS: 99214; G2211

== ENCOUNTER → 2024-01-21 16:03 | Outpatient (BNVA) | payer MEDICARE, MEDICAID, SELFPAY | PROVIDERS: PCP Family Medicine; Visit Provider Nurse Practitioner Adult Health | DX: E11.42 Type 2 diabetes mellitus with diabetic polyneuropathy (principal); E66.9 Obesity, unspecified; E78.5 Hyperlipidemia, unspecified; D35.00 Benign neoplasm of unspecified adrenal gland; Z86.73 Personal history of transient ischemic attack (TIA), and cerebral infarction without residual deficits; Z79.4 Long term (current) use of insulin | CPT/HCPCS: 82947; 99212 ==

== ENCOUNTER 2024-03-17 15:56 | Outpatient (AMB) | payer MEDICARE, MEDICAID, SELFPAY ==
--- NOTE | 2024-03-17 15:59 | A.OFFVIS_ITS ---
Vital Signs 03/17/24 16:04 BMI Reason not done Patient refused/unable BP 128/72 Blood Pressure Location Rt brachial Position Sitting Pulse 79 Pulse Source Pulse Oximeter Intake Visit Reasons: DM F/U NEEDS ROOM 5/CONFIRMED Intake Note: Patient present today to follow up on Type 2 Diabetes Mellitus. Last Diabetic Eye exam: DUE Last Podiatry Visit: Does not see a Talent Associate Random Glucose: 149 mg/dl HgA1C: 10.2% 03/17/24 Jockey'S Agent Required: No Accompanied by: Mother Allergies metformin Allergy (Unknown, Verified 03/17/24 16:05) dizziness fentanyl Adverse Reaction (Unknown, Verified 03/17/24 16:05) Vomiting Medication List - Last Reconciled 03/17/24 by Idris Hernandez MD acetone (urine) test (Ketone Urine Test strips) As directed prn glucose over 300, illness, nausea, vomiting tid prn aspirin 81 mg PO DAILY atorvastatin 80 mg PO BEDTIME blood sugar diagnostic (FreeStyle Lite Strips) As directed four times a day blood-glucose meter (FreeStyle Lite Meter kit) As directed 4 times a day buspirone 15 mg PO BID ferrous sulfate 325 mg PO DAILY Fiasp FlexTouch U-100 Insulin 100 unit/mL (3 mL) (insulin aspart (niacinamide)) 16-20 units tid before meals subcutaneously use as directed; 30 days NS flash glucose scanning reader (FreeStyle Vilma 2 [place]) As directed flash glucose sensor (FreeStyle Vilma 2 Sensor kit) As directed - scan four or more times a day flash glucose sensor (FreeStyle Vilma 2 Sensor kit) As directed change every 14 days fluticasone propionate 220 mcg/actuation 2 puffs PO BID gabapentin 600 mg PO QID PRN glucagon (Gvoke HypoPen 1-Pack) 1 mg (0.2 mL) subcut ONCE hydroxyzine HCl 50 mg PO QID insulin degludec (Tresiba FlexTouch U-200 insulin) 120 units (0.6 mL) subcut BEDTIME 30 days ketone blood test As directed lamotrigine 50 mg PO BID lancets As directed lancets (FreeStyle Lancets) four times a day losartan 50 mg PO DAILY Novolog FlexPen U-100 Insulin (insulin aspart U-100) 14 units (0.14 mL) subcut TID 30 days NS ondansetron HCl 4 mg PO Q8H PRN pen needle, diabetic As directed pen needle, diabetic (BD Ultra-Fine Oneida Pen Needle) As directed 4 times a day pioglitazone (Actos) 15 mg PO DAILY 30 days topiramate 100 mg PO BEDTIME venlafaxine ER 150 mg PO DAILY HPI Comments Details: Patient is 43 yo female with DM type 2 diagnosed at age 27 who presents for continued management of diabetes. Past medical history: DM2, obesity, HLD. neuropathy, agoraphobia Micro and macrovascular complications: +neuropathy, + CVA, Diabetes medications: Tresiba 130 units at nighttime 14 units of Fiasp prior to meals. CGM: Vilma download shows she is using the sensor 62% of the time. Average glucose is 206 with G mi of 8.2% and variability 36.4%. 37% range with 60% hyperglycemia and 3% hypoglycemia. Daily trend shows point cares trending downward overnight with increases post-lunch and post-dinner Hypoglycemia: Once a wk hypoglycemia , Exercise: not walking much due to pain in foot r for which she is being followed. Eye exam: 1 yr ago retinopathy geting laser surgery . Needs to make appt Laboratory Tests 04/13/21 04/20/21 04/20/21 09:24 12:09 12:09 Creatinine 0.99 Estimated GFR > 60 Hgb A1c (Clinic) 9.5 H C-Peptide 1.24 Triglycerides 175 Cholesterol 179 LDL Cholesterol Direct 131 H LDL Cholesterol, Calc 107 HDL Cholesterol 37 Microalb/Creat Ratio Islet Cell Ab Screen NEGATIVE BREEZY Antibody <5 04/20/21 12:30 Creatinine Estimated GFR Hgb A1c (Clinic) C-Peptide Triglycerides Cholesterol LDL Cholesterol Direct LDL Cholesterol, Calc HDL Cholesterol Microalb/Creat Ratio 112.6 Islet Cell Ab Screen BREEZY Antibody 12/22/20 10:16 Hgb A1c (Clinic) > 14.0 H PFSH Medical History Adrenal adenoma Hypertension Obesity due to excess calories Agoraphobia Stroke Asthma Peripheral neuropathy Depression Anxiety Class 1 obesity due to excess calories in adult Hyperlipidemia LDL goal <70 Type 2 diabetes mellitus with diabetic polyneuropathy Surgical History History of surgery Family History Mother Diabetes Father Diabetes Brother Hypertension Daughter Hypertension Social History Household Members: Children Alcohol intake: former Patient Tobacco Use Status: Current everyday Tobacco user Tobacco use type: Cigarette Cigarette Packs Per Day: 1 Cigarettes Per Day: 20.0 Substance Use Type: Marijuana Current occupational status: unemployed Physical Exam Vital Signs: Last Vital Signs Pulse 79 03/17/24 16:04 BP 128/72 03/17/24 16:04 Absence of Cushingoid features. Absence of acromegalic features. Neck exam reveals nl size thyroid about 15 gms. No thyroid nodules palpable. No carotid bruits present. Lungs CTA. Heart S1 S2, Reg R/R. No M/R/ G. Skin exam reveals absence of vitiligo or acanthosis nigricans. Abdominal exam reveals Soft NT/ND with NA BS. No organomegaly present. Neck Other: . Extrem Other: Visual exam of foot performed. No ulcerations or open lesions. No onchomycosis, no callouses.Pulses 2 + distally Sensation intact to monofilament exam. Vibratory sensation sensed is DECREASED IN RIGHT LOWER EXTREMITYt with 128 Hz tuning fork Results AMB Hemoglobin A1c AMB Hemoglobin A1c 10.2 % Last Edit by ROMELIA Rich on 03/17/24 16:32 Results Reviewed Results Reviewed: Laboratory Last Values Glucose (Clinic) 149 mg/dL (60-115) H 03/17/24 16:14 Assessment & Plan Assessment & Plan (1) Type 2 diabetes mellitus with diabetic polyneuropathy: Code(s): E11.42 - Type 2 diabetes mellitus with diabetic polyneuropathy Category: Medical Qualifiers: Diabetes mellitus penitentiary insulin use: with clinical assessment manager use Qualified Code(s): E11.42 - Type 2 diabetes mellitus with diabetic polyneuropathy; Z79.4 - electronics engineering technician (current) use of insulin Plan: This is a 42-year-old white female with history of type 2 diabetes being treated with Trulicity and basal-bolus insulin poor glycemic control and known microvascular and macrovascular complications namely neuropathy, micro albuminuria and CVA Plan is to decrease the Tresiba 120 units and increase the Fiasp to 18 units prior to lunch and did to prevent glycemic excursions. Patient has used variations in blood sugar and would benefit from use of an insulin pump if she is able to manipulate it . A tandem pump would be ideal considering the insulin requirements. She has a meeting with the early childhood special educator next week to discuss this. She will follow up with Abigail in 2 months. She should also follow up with Nephrology Coding Level of Care Code Est Pt Level 4 (38029) Complex EM visit Add On G2211 Diagnoses Type 2 diabetes mellitus with diabetic polyneuropathy, with long-term current use of insulin E11.42; Z79.4 Diabetes mellitus penitentiary insulin use: with clinical assessment manager use
[2024-03-17 16:04] VITALS: BP 128/72; PULSE 79
[2024-03-17 16:19] LABS: Glucose, Whole Blood 149 mg/dL (60-115)
== END 2024-03-17 16:38 | disposition home or self-care (01) ==
PROVIDERS: PCP Family Medicine; Visit Provider Nurse Practitioner Adult Health
DX: E11.42 Type 2 diabetes mellitus with diabetic polyneuropathy (principal); Z79.4 Long term (current) use of insulin

== ENCOUNTER → 2024-03-17 15:56 | Outpatient (BNVA) | payer MEDICARE, MEDICAID, SELFPAY | PROVIDERS: PCP Family Medicine; Visit Provider Nurse Practitioner Adult Health | DX: E11.42 Type 2 diabetes mellitus with diabetic polyneuropathy (principal); Z79.4 Long term (current) use of insulin | CPT/HCPCS: 82947; 83036 ==

== ENCOUNTER 2024-03-23 15:08 | Outpatient (AMB) | payer MEDICARE, MEDICAID, SELFPAY ==
[2024-03-23 15:10] VITALS: BP 136/68; PULSE 108; O2SAT 98
--- NOTE | 2024-03-23 15:10 | HO.NEPHOV ---
Vital Signs 03/23/24 15:10 Height 5 ft 4 in BP 136/68 Blood Pressure Location Rt brachial Position Sitting Pulse 108 H Pulse Source Pulse Oximeter Pulse Oximetry (%) 98 Oxygen Delivery Method Room Air Intake Visit Reasons: DM/ LVM Elevators Inspector Required: No Accompanied by: Family/Other Allergies metformin Allergy (Unknown, Verified 03/23/24 15:13) dizziness fentanyl Adverse Reaction (Unknown, Verified 03/23/24 15:13) Vomiting Medication List - Last Reconciled 03/23/24 by Vega Guardado MD acetone (urine) test (Ketone Urine Test strips) As directed prn glucose over 300, illness, nausea, vomiting tid prn aspirin 81 mg PO DAILY atorvastatin 80 mg PO BEDTIME blood sugar diagnostic (FreeStyle Lite Strips) As directed four times a day blood-glucose meter (FreeStyle Lite Meter kit) As directed 4 times a day buspirone 15 mg PO BID ferrous sulfate 325 mg PO DAILY Fiasp FlexTouch U-100 Insulin 100 unit/mL (3 mL) (insulin aspart (niacinamide)) 16-20 units tid before meals subcutaneously use as directed; 30 days NS flash glucose scanning reader (FreeStyle Vilma 2 [place]) As directed flash glucose sensor (FreeStyle Vilma 2 Sensor kit) As directed - scan four or more times a day flash glucose sensor (FreeStyle Vilma 2 Sensor kit) As directed change every 14 days fluticasone propionate 220 mcg/actuation 2 puffs PO BID gabapentin 600 mg PO QID PRN glucagon (Gvoke HypoPen 1-Pack) 1 mg (0.2 mL) subcut ONCE hydroxyzine HCl 50 mg PO QID insulin degludec (Tresiba FlexTouch U-200 insulin) 120 units (0.6 mL) subcut BEDTIME 30 days ketone blood test As directed lamotrigine 50 mg PO BID lancets As directed lancets (FreeStyle Lancets) four times a day losartan 50 mg PO DAILY Novolog FlexPen U-100 Insulin (insulin aspart U-100) 14 units (0.14 mL) subcut TID 30 days NS ondansetron HCl 4 mg PO Q8H PRN pen needle, diabetic As directed pen needle, diabetic (BD Ultra-Fine Oneida Pen Needle) As directed 4 times a day pioglitazone (Actos) 15 mg PO DAILY 30 days topiramate 100 mg PO BEDTIME venlafaxine ER 150 mg PO DAILY HPI Comments Details: . Naila is a pleasant middle-aged woman with a history of longstanding diabetes mellitus type 2 complicated by retinopathy microalbuminuria and neuropathy. 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 She also has hypertension along with hyperlipidemia. She has been referred for further evaluation of proteinuria. Recent urine studies showed about 1.5 g of proteinuria. She was found to have an adrenal adenoma and she has undergone endocrine evaluation and this is deemed to be an incidentaloma. 03/21/2024. Did not undergo any lab work. [facility] Medical History Adrenal adenoma Hypertension Obesity due to excess calories Agoraphobia Stroke Asthma Peripheral neuropathy Depression Anxiety Class 1 obesity due to excess calories in adult Hyperlipidemia LDL goal <70 Type 2 diabetes mellitus with diabetic polyneuropathy Surgical History History of surgery Family History Mother Diabetes Father Diabetes Brother Hypertension Daughter Hypertension Social History Household Members: Children Alcohol intake: former Patient Tobacco Use Status: Current everyday Tobacco user Tobacco use type: Cigarette Cigarette Packs Per Day: 1 Cigarettes Per Day: 20.0 Substance Use Type: Marijuana Current occupational status: unemployed Physical Exam Vital Signs: Last Vital Signs Pulse 108 H 03/23/24 15:10 BP 136/68 03/23/24 15:10 Pulse Ox 98 03/23/24 15:10 Oxygen Delivery Method Room Air 03/23/24 15:10 Results Reviewed Nephrology Results: No Data to Display Assessment & Plan Assessment & Plan (1) Type 2 diabetes mellitus with diabetic polyneuropathy: Code(s): E11.42 - Type 2 diabetes mellitus with diabetic polyneuropathy Category: Medical Qualifiers: Diabetes mellitus long-term insulin use: with long-term use Qualified Code(s): E11.42 - Type 2 diabetes mellitus with diabetic polyneuropathy; Z79.4 - long term care pharmacist (current) use of insulin (2) Adrenal adenoma: Comment: Most likely an incidentaloma Code(s): D35.00 - Benign neoplasm of unspecified adrenal gland Category: Medical (3) Hypertension: Code(s): I10 - Essential (primary) hypertension Category: Medical (4) PAD (peripheral artery disease): Comment: 04/11/2022 atherectomy and plasty of right SFA Code(s): I73.9 - Peripheral vascular disease, unspecified Category: Medical (5) Proteinuria: Code(s): R80.9 - Proteinuria, unspecified Category: Medical Plan . Middle-aged woman with longstanding diabetes mellitus with proteinuria. Renal function is normal at baseline with a baseline creatinine of 0.9 mg/dL. Proteinuria is most likely due to underlying diabetic nephropathy. Goal is to slow the progression of renal disease. I would maximize the HUONG inhibition. Maintain blood pressure less than 130/80. She is not on any SGLT2 inhibitors due to history of DKA. Encouraged her to stay on low-sodium diet Increase p.o. fluid intake Continue to optimize blood sugar. Further workup will depend on the outcome of the baseline investigations with the outlined. Reordered all the lab work as outlined Orders: Orders Basic Metabolic Panel Today D35.00 - Benign neoplasm of unspecified adrenal gland, I10 - Essential (primary) hypertension, R80.9 - Proteinuria, unspecified Complete Blood Count no Diff Today D35.00 - Benign neoplasm of unspecified adrenal gland, I10 - Essential (primary) hypertension, R80.9 - Proteinuria, unspecified Protein Electrophoresis, Serum Today D35.00 - Benign neoplasm of unspecified adrenal gland, I10 - Essential (primary) hypertension, R80.9 - Proteinuria, unspecified Coding Level of Care Code Est Pt Level 4 (70325) Diagnoses Type 2 diabetes mellitus with diabetic polyneuropathy, with long-term current use of insulin E11.42; Z79.4 Diabetes mellitus long-term insulin use: with terminal carman use Adrenal adenoma D35.00 Hypertension I10 PAD (peripheral artery disease) I73.9 Proteinuria R80.9
== END 2024-03-23 15:27 | disposition home or self-care (01) ==
PROVIDERS: PCP Family Medicine; Visit Provider Internal Medicine Hypertension Specialist
DX: E11.42 Type 2 diabetes mellitus with diabetic polyneuropathy (principal); Z79.4 Long term (current) use of insulin; I73.9 Peripheral vascular disease, unspecified; D35.00 Benign neoplasm of unspecified adrenal gland; I10 Essential (primary) hypertension; R80.9 Proteinuria, unspecified
CPT/HCPCS: 99214

== ENCOUNTER → 2024-03-23 15:08 | Outpatient (BNVA) | payer MEDICARE, MEDICAID, SELFPAY | PROVIDERS: PCP Family Medicine; Visit Provider Internal Medicine Hypertension Specialist | DX: E66.09 Other obesity due to excess calories (principal); E11.42 Type 2 diabetes mellitus with diabetic polyneuropathy; E11.319 Type 2 diabetes mellitus with unspecified diabetic retinopathy without macular edema; E11.51 Type 2 diabetes mellitus with diabetic peripheral angiopathy without gangrene; I10 Essential (primary) hypertension; E78.5 Hyperlipidemia, unspecified; R80.9 Proteinuria, unspecified; D35.00 Benign neoplasm of unspecified adrenal gland; Z79.4 Long term (current) use of insulin | CPT/HCPCS: 99211; 99212 ==

== ENCOUNTER 2024-03-23 15:33 | Outpatient (AMB) | payer MEDICARE, MEDICAID, SELFPAY ==
--- NOTE | 2024-03-23 16:27 | MHC.AMDMED ---
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 Visit Reasons: DM-lvm Accompanied by: Daughter Allergies metformin Allergy (Unknown, Verified 03/23/24 15:13) dizziness fentanyl Adverse Reaction (Unknown, Verified 03/23/24 15:13) Vomiting HPI Comprehensive Diabetes Asmnt Most Recent Diabetes Results: Microalb/Creat Ratio 1525.4 ug/mg cr (<30) H 12/09/23 Cholesterol 171 mg/dL (<200) 07/18/23 HDL Cholesterol 54 mg/dL (>40) 07/18/23 Triglycerides 180 mg/dL (<150) H 07/18/23 Creatinine 0.90 mg/dL (0.5-1.4) 07/20/22 Blood Urea Nitrogen 24 mg/dL (9-16) H 07/20/22 Sodium 141 mmol/L (135-145) 07/20/22 Potassium 4.4 mmol/L (3.3-5.1) 07/20/22 Chloride 110 mmol/L (96-108) H 07/20/22 Carbon Dioxide 22 mmol/L (22-29) 07/20/22 Calcium 9.4 mg/dL (8.4-10.2) 07/20/22 AST 13 U/L (5-31) 04/20/21 ALT 13 U/L (0-31) 04/20/21 Total Protein 7.2 g/dL (6.5-8.0) 04/20/21 Albumin 4.4 g/dL (3.5-5.0) 04/20/21 COUNT INCLUDES THE [facility] Medical History Adrenal adenoma Hypertension Obesity due to excess calories Agoraphobia Stroke Asthma Peripheral neuropathy Depression Anxiety Class 1 obesity due to excess calories in adult Hyperlipidemia LDL goal <70 Type 2 diabetes mellitus with diabetic polyneuropathy Surgical History History of surgery Family History Mother Diabetes Father Diabetes Brother Hypertension Daughter Hypertension Social History Household Members: Children Alcohol intake: former Patient Tobacco Use Status: Current everyday Tobacco user Tobacco use type: Cigarette Cigarette Packs Per Day: 1 Cigarettes Per Day: 20.0 Substance Use Type: Marijuana Current occupational status: unemployed Assessment & Plan Assessment & Plan (1) Class 1 obesity due to excess calories in adult: Code(s): E66.09 - Other obesity due to excess calories Plan: Carb Counting Basic Patient presents for appointment carbohydrate counting education. Reviewed the basic principles of carbohydrate counting.? Insulin to carb ratio, and insulin sensitivity factor calculated based on rule of 450 for insulin to carb ratio, and rule of 1500 for insulin sensitivity factor. Instructed patient on the importance of accurate calculation of the amount of carbs per meal for optimal glucose control Reviewed how to calculate mealtime bolus with insulin to carb ratio Reviewed how to calculate correction dose with insulin sensitivity factor Patient's TDD estimate 160 Insulin to Carbohydrate ratio:1:5 Correction factor:1:10 Patient is interested in the tandem X 2, with freestyle Vilma 2+ Patient given healthy plate handout, for resource for carbohydrate counting Encourage patient to fill out food logs, estimating carbohydrates at meals, noting glucose number prior to meal, and how many units of insulin taken prior to meals Pt able to calculated needed insulin based on estimated carbohydrate content Instructed patient that there may need to be adjustment to insulin to carb ratio and sensitivity factor based on blood glucose trends. Portions of this note were created using voice recognition software, please excuse any words or phrases that may have been misinterpreted. Patient Instructions: Follow-up in 2 months for pump assessment Coding Level of Care Code Est Pt Level 1 (15381) Diagnoses Class 1 obesity due to excess calories in adult E66.09
== END 2024-03-23 16:32 | disposition home or self-care (01) ==
PROVIDERS: PCP Family Medicine; Visit Provider Registered Nurse Diabetes Educator
DX: E66.09 Other obesity due to excess calories (principal)

== ENCOUNTER 2024-04-07 14:33 | Outpatient (REF) | payer MEDICARE, MEDICAID, SELFPAY ==
[2024-04-07 17:43] LABS: Hematocrit 38.1 % (37.0-47.0); Hemoglobin 12.4 g/dl (12.0-16.0); Mean Corpuscular HGB Conc 32.5 g/dl (31.0-35.0); Mean Corpuscular Hemoglobin 27.6 pg (27.0-33.0); Mean Corpuscular Volume 84.7 fL (80.0-98.0); Mean Platelet Volume 11.6 fL (9.4-12.3); Platelet Count 419 X10*3/uL (160-400); Red Cell Distribution Width 14.6 % (11.0-16.0); White Blood Count 9.4 X10*3/uL (4.8-10.8)
[2024-04-07 17:53] LABS: Anion Gap 14 (12-20); Blood Urea Nitrogen 16 mg/dL (9-16); Calcium 8.7 mg/dL (8.4-10.2); Carbon Dioxide 22 mmol/L (22-29); Chloride 107 mmol/L (96-108); Estimated Glomerular Filt Rate > 60; Glucose Random 328 mg/dL (60-115); Sodium 139 mmol/L (135-145)
[2024-04-07 18:12] LABS: B Type Natriuretic Peptide 34 pg/mL (<100)
[2024-04-09 12:33] LABS: Prot Elec - Albumin 3.2 g/dL (3.8-4.8); Prot Elec - Alpha1 0.3 g/dL (0.2-0.3); Prot Elec - Alpha2 0.8 g/dL (0.5-0.9); Prot Elec - Beta 1 0.4 g/dL (0.4-0.6); Prot Elec - Beta 2 0.3 g/dL (0.2-0.5); Prot Elec - Gamma 0.5 g/dL (0.8-1.7); Prot Elec - Total Protein 5.4 g/dL (6.1-8.1)
== END 2024-04-07 14:34 | disposition home or self-care (01) ==
LOC: HO.WFDLDS 14:33
PROVIDERS: Referring Provider Internal Medicine Hypertension Specialist; Visit Provider Nurse Practitioner Adult Health
DX: D35.00 Benign neoplasm of unspecified adrenal gland (principal); E11.42 Type 2 diabetes mellitus with diabetic polyneuropathy; Z79.4 Long term (current) use of insulin; I10 Essential (primary) hypertension; R80.9 Proteinuria, unspecified
CPT/HCPCS: 36415; 80048; 83880; 84165; 85027

== ENCOUNTER 2024-04-15 13:47 | Outpatient (REF) | payer MEDICARE, MEDICAID, SELFPAY ==
[2024-04-15 15:42] LABS: Anion Gap 14 (12-20); Blood Urea Nitrogen 23 mg/dL (9-16); Calcium 9.9 mg/dL (8.4-10.2); Carbon Dioxide 23 mmol/L (22-29); Chloride 100 mmol/L (96-108); Estimated Glomerular Filt Rate 47; Glucose Random 425 mg/dL (60-115); Potassium 4.3 mmol/L (3.3-5.1); Sodium 133 mmol/L (135-145)
[2024-04-15 16:43] LABS: Creatinine Urine 206.57 mg/dL; Total Protein Urine Random 562 mg/dL (<12)
[2024-04-20 12:23] LABS: Metanephrine, Free 31 pg/mL (<=57); Normetanephrines, Free 95 pg/mL (<=148); Total Metanephrine, Free 126 pg/mL (<=205)
[2024-04-28 17:48] LABS: Catecholamine Frac, Total 395 pg/mL
== END 2024-04-15 13:48 | disposition home or self-care (01) ==
LOC: HO.LAB 13:47
PROVIDERS: Absent Provider Internal Medicine Hypertension Specialist; PCP Family Medicine; Referring Provider Internal Medicine Endocrinology, Diabetes & Metabolism; Visit Provider Nurse Practitioner Adult Health
DX: I10 Essential (primary) hypertension (principal); D35.00 Benign neoplasm of unspecified adrenal gland; R80.9 Proteinuria, unspecified; E11.42 Type 2 diabetes mellitus with diabetic polyneuropathy; Z79.4 Long term (current) use of insulin
CPT/HCPCS: 36415; 80048; 82384; 82570; 83835; 84156

== ENCOUNTER 2024-04-27 12:58 | Outpatient (AMB) | payer MEDICARE, MEDICAID, SELFPAY ==
[2024-04-27 13:00] VITALS: BP 100/62; PULSE 40
--- NOTE | 2024-04-27 13:00 | MHC.OFFVIS ---
Vital Signs 04/27/24 13:00 Height 5 ft 4 in BP 100/62 Blood Pressure Location Lt brachial Position Sitting Pulse 40 L Pulse Source Pulse Oximeter Intake Visit Reasons: Diabetes Intake Note: Patient present today for Type 2 Diabetes Mellitus. Last Diabetic eye exam: 2022 Last Podiatry Visit: Doesn't have one Random Glucose: 349 mg/dl HgA1C: 10.2% 03/17/24 Supervisor In Circuit Testing Required: No Accompanied by: mother and daughter Allergies metformin Allergy (Unknown, Verified 04/27/24 13:06) dizziness fentanyl Adverse Reaction (Unknown, Verified 04/27/24 13:06) Vomiting Medication List - Last Reconciled 04/27/24 by Rowan Lou MD acetone (urine) test (Ketone Urine Test strips) As directed prn glucose over 300, illness, nausea, vomiting tid prn aspirin 81 mg PO DAILY atorvastatin 80 mg PO BEDTIME blood sugar diagnostic (OneTouch Verio test strips) As directed four times a day blood-glucose meter (H2Sonicsuch Verio Flex Meter) As directed four times a day buspirone 15 mg PO BID ferrous sulfate 325 mg PO DAILY Fiasp FlexTouch U-100 Insulin 100 unit/mL (3 mL) (insulin aspart (niacinamide)) 16-20 units tid before meals subcutaneously use as directed; 30 days NS flash glucose scanning reader (FreeStyle Vilma 2 Maypearl) As directed flash glucose sensor (FreeStyle Vilma 2 Sensor kit) As directed - scan four or more times a day flash glucose sensor (FreeStyle Vilma 2 Sensor kit) As directed change every 14 days fluticasone propionate 220 mcg/actuation 2 puffs PO BID gabapentin 600 mg PO QID PRN glucagon (Gvoke HypoPen 1-Pack) 1 mg (0.2 mL) subcut ONCE hydroxyzine HCl 50 mg PO QID insulin degludec (Tresiba FlexTouch U-200 insulin) 120 units (0.6 mL) subcut BEDTIME 30 days ketone blood test As directed lamotrigine 50 mg PO BID lancets (OneTouch Delica Plus Lancet) As directed four times a day losartan 50 mg PO DAILY Novolog FlexPen U-100 Insulin (insulin aspart U-100) 14 units (0.14 mL) subcut TID 30 days NS ondansetron HCl 4 mg PO Q8H PRN pen needle, diabetic As directed pen needle, diabetic (BD Ultra-Fine Oneida Pen Needle) As directed 4 times a day pioglitazone (Actos) 15 mg PO DAILY 30 days topiramate 100 mg PO BEDTIME venlafaxine ER 150 mg PO DAILY HPI Comments Details: Patient is 43 yo female with DM type 2 diagnosed at age 27 who presents for continued management of diabetes. She is here today because she has been having worsening of her blood sugars recently. Here today with mother and daughter Last visit with Abigail Hobson AYAKA 03/17/24 Past medical history: DM2, obesity, HLD. neuropathy, agoraphobia Micro and macrovascular complications: +neuropathy, + CVA, retinopathy, diabetic kidney disease with proteinuria Interval history Per patient's sensor fell off about 2 weeks ago and she did not have any backup lancets are test strips were glucometer to check her blood sugars hence she stopped taking mealtime insulin Currenlty reports no interval hospitalizations Denies fevers, cold flu like symptoms Cyclobenzaprine is her only new medication , no steroids Random blood glucose today 349 mg/dL. She denies any nausea, vomiting currently. Says she was having some intermittent nausea over yesterday, however able to keep food down. We were unable to test her ketones in the urine as she only urinates in the head which we did not have in clinic. Diabetes medications: Tresiba 130 units at nighttime Fiasp prior to meals. With carb ratio 1:5 and insulin sensitivity factor 1:10 she has not been taking her bolus insulin for the past 2 weeks, she got back her sensor yesterday and only started taking Fiasp yesterday. Actos 15 mg daily. CGM: , Exercise: not walking much due to pain in foot r for which she is being followed. Eye exam: 2022 retinopathy geting laser surgery . Needs to make appt , lost to follow up She follows with Nephrology, last visit February 2024, she is on losartan 50 mg daily. She is on atorvastatin 80 mg daily, history of CVA. Physical exam General: sitting comfortably in no acute distress HEENT: normocephalic/atraumatic Neck: supple Cardiac: normal heart sounds Pulm: normal breath sounds B/L, no added breath sounds Abd: not distended, no tenderness Extremities: no edema, no signs of myxedema Laboratory Tests 1204/20/21 04/20/21 09:24 12:09 12:09 Creatinine 0.99 Estimated GFR > 60 Hgb A1c (Clinic) 9.5 H C-Peptide 1.24 Triglycerides 175 Cholesterol 179 LDL Cholesterol Direct 131 H LDL Cholesterol, Calc 107 HDL Cholesterol 37 Microalb/Creat Ratio Islet Cell Ab Screen NEGATIVE BREEZY Antibody <5 04/20/21 12:30 Creatinine Estimated GFR Hgb A1c (Clinic) C-Peptide Triglycerides Cholesterol LDL Cholesterol Direct LDL Cholesterol, Calc HDL Cholesterol Microalb/Creat Ratio 112.6 Islet Cell Ab Screen BREEZY Antibody 12/22/20 10:16 Hgb A1c (Clinic) > 14.0 H Laboratory Tests 07/18/23 12/09/23 04/15/24 09:48 07:55 14:00 Creatinine Estimated GFR Glucose (Clinic) Random Glucose Triglycerides 180 H Cholesterol 171 LDL Cholesterol, Calc 81 HDL Cholesterol 54 U Random Total Protein 562 H Urine Creatinine 37.89 206.57 Urine Microalbumin 578.0 Microalb/Creat Ratio 1525.4 H 04/15/24 04/27/24 14:01 13:08 Creatinine 1.24 Estimated GFR 47 Glucose (Clinic) 349 H Random Glucose 425 H* Triglycerides Cholesterol LDL Cholesterol, Calc HDL Cholesterol U Random Total Protein Urine Creatinine Urine Microalbumin Microalb/Creat Ratio PENDING SALE TO [facility] Medical History Adrenal adenoma Hypertension Obesity due to excess calories Agoraphobia Stroke Asthma Peripheral neuropathy Depression Anxiety Class 1 obesity due to excess calories in adult Hyperlipidemia LDL goal <70 Type 2 diabetes mellitus with diabetic polyneuropathy Surgical History History of surgery Family History Mother Diabetes Father Diabetes Brother Hypertension Daughter Hypertension Social History Household Members: Children Alcohol intake: former Patient Tobacco Use Status: Current everyday Tobacco user Tobacco use type: Cigarette Cigarette Packs Per Day: 1 Cigarettes Per Day: 20.0 Substance Use Type: Marijuana Current occupational status: unemployed Physical Exam Vital Signs: Last Vital Signs Pulse 40 L 04/27/24 13:00 BP 100/62 04/27/24 13:00 Assessment & Plan Assessment & Plan (1) Type 2 diabetes mellitus with diabetic polyneuropathy: Code(s): E11.42 - Type 2 diabetes mellitus with diabetic polyneuropathy Category: Medical Qualifiers: Diabetes mellitus jail insulin use: with longwall foreman use Qualified Code(s): E11.42 - Type 2 diabetes mellitus with diabetic polyneuropathy; Z79.4 - long term care social worker (current) use of insulin Plan: This is a 42-year-old white female with history of type 2 diabetes being treated with Trulicity and basal-bolus insulin poor glycemic control and known microvascular and macrovascular complications namely neuropathy, retinopathy, proteinuria and CVA. A1c at 10.2% from February 2024. Her sensor fell off due to a fall 2 weeks ago and she did not have any backup fingerstick monitoring device hence she stopped taking her bolus regimen so understandably her blood sugars went up into 300s and 400s and today she presented to me because her blood sugars were acutely elevated. Blood sugars are uncontrolled in the setting of not taking bolus insulin. She does not have any signs or symptoms to suggest diabetic ketoacidosis today. However I did advise her to maintain good hydration and go to the emergency room if she has a abdominal pain, nausea, vomiting, mental status changes, feeling sick with the elevated blood sugars greater than 350. Patient verbalized understanding. She was able to put her sensor back on yesterday, we had also prescribed her backup glucometer, lancets and test strips which she is going to flower picker from the pharmacy today. She also had some confusion about using the bolus calculator which our certified adaptive physical educator went over with her. I showed her how to use it again today with her carb ratio of 5 and sensitivity factor of 10. She is going to be using Fiasp from next meal onwards. I advised her to continue Tresiba as it is. Plan: -continue Actos 15 mg daily given history of CVA -continue follow up with Nephrology given proteinuria and diabetic kidney disease -continue Tresiba 130 units daily -continue Fiasp pre meals with a carb ratio of 5 and sensitivity factor of 10 using the bolus calculator -continue follow up with certified adaptive physical educator to switch to an insulin pump in the near future Plan I spent 30 minutes in reviewing the record, seeing the patient and documenting in the medical record. Patient Instructions: Continue Tresiba 130 units daily supersonic engineer lancets and test strips Insulin to Carbohydrate ratio: 1:5 Insulin to Insulin Correction /sensitivity factor:1:10 Rule of 15 Treatment for Hypoglycemia (Low blood sugar) If your blood glucose is low (70 and below)*, follow the steps below to treat: Eat or drink something from the list below equal to 15 grams of carbohydrate (carb). Rest for 15 minutes Re-check your blood glucose. If it is still low, (below 70), repeat step 1 above. ? If your next meal is more than an hour away, you will need to eat one carbohydrate choice as a snack to keep your blood glucose from going low again. ?If you can't figure out why you have low blood glucose, call your healthcare provider, as your medicine may need to be adjusted. ?Always carry something with you to treat an insulin reaction. Use food from the list below. ? Foods equal to One Carbohydrate Choice (15 grams of carbohydrate): 3 Glucose ?tablets or 4 Dextrose tablets 4 ounces of fruit juice 5-6 ounces (about 1/2 can) of regular soda such as Coke or Pepsi ? 7-8 gummy or regular Life Savers ? 1 Tbsp. of sugar or jelly NOTE: If your blood sugar is less than 50, double the portion above for a total of 30 gm. ?Carbohydrate. ? Follow meal plan of 45-60 g of consistent carbohydrates at 3 meals each day and 15 g of carbohydrate at 1-2 snacks each day. Coding Level of Care Code Est Pt Level 4 (00941) Complex EM visit Add On G2211 Diagnoses Type 2 diabetes mellitus with diabetic polyneuropathy, with long-term current use of insulin E11.42; Z79.4 Diabetes mellitus longwall foreman insulin use: with jail use Time Spent (min) 30
[2024-04-27 13:12] LABS: Glucose, Whole Blood 349 mg/dL (60-115)
== END 2024-04-27 13:36 | disposition home or self-care (01) ==
PROVIDERS: PCP Family Medicine; Visit Provider Student in an Organized Health Care Education/Training Program
DX: E11.42 Type 2 diabetes mellitus with diabetic polyneuropathy (principal); Z79.4 Long term (current) use of insulin
CPT/HCPCS: 99214; G2211

== ENCOUNTER → 2024-04-27 12:58 | Outpatient (BNVA) | payer MEDICARE, MEDICAID, SELFPAY | PROVIDERS: PCP Family Medicine; Visit Provider Student in an Organized Health Care Education/Training Program | DX: E11.42 Type 2 diabetes mellitus with diabetic polyneuropathy (principal); E66.811 Obesity, class 1; Z79.4 Long term (current) use of insulin | CPT/HCPCS: 82947; 99212 ==

== ENCOUNTER 2024-05-18 12:18 | Outpatient (AMB) | payer MEDICARE, MEDICAID, SELFPAY ==
[2024-05-18 12:19] VITALS: BP 130/78
--- NOTE | 2024-05-18 12:19 | HO.NEPHOV_ITS ---
Vital Signs 05/18/24 12:19 Height 5 ft 4 in BP 130/78 Blood Pressure Location Rt brachial Position Sitting Intake Visit Reasons: Adrenal adenoma-LVM Disease Education Specialist Required: No Accompanied by: Family/Other Allergies metformin Allergy (Unknown, Verified 05/18/24 12:22) dizziness fentanyl Adverse Reaction (Unknown, Verified 05/18/24 12:22) Vomiting HPI Comments Details: . Naila is a pleasant middle-aged woman with a history of longstanding diabetes mellitus type 2 complicated by retinopathy microalbuminuria and neuropathy. 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 She also has hypertension along with hyperlipidemia. She has been referred for further evaluation of proteinuria. Recent urine studies showed about 1.5 g of proteinuria. She was found to have an adrenal adenoma and she has undergone endocrine e valuation and this is deemed to be an incidentaloma. 03/21/2024. Did not undergo any lab work. 05/18/24 Doing ok Blood sugar is elevated [facility] Medical History Adrenal adenoma Hypertension Obesity due to excess calories Agoraphobia Stroke Asthma Peripheral neuropathy Depression Anxiety Class 1 obesity due to excess calories in adult Hyperlipidemia LDL goal <70 Type 2 diabetes mellitus with diabetic polyneuropathy Surgical History History of surgery Family History Mother Diabetes Father Diabetes Brother Hypertension Daughter Hypertension Social History Household Members: Children Alcohol intake: former Patient Tobacco Use Status: Current everyday Tobacco user Tobacco use type: Cigarette Cigarette Packs Per Day: 1 Cigarettes Per Day: 20.0 Substance Use Type: Marijuana Current occupational status: unemployed Physical Exam Vital Signs: Last Vital Signs BP 130/78 05/18/24 12:19 Comfortable Neck supple no JVD. Lungs entry equal no rales. Heart S1-S2 heard no gallop or rub. Abdomen soft nontender. Neuro alert awake oriented. No asterixis. Extremities no edema. Results Reviewed Nephrology Results: Hgb 12.4 g/dl (12.0-16.0) 04/07/24 WBC 9.4 X10*3/uL (4.8-10.8) 04/07/24 Plt Count 419 X10*3/uL (160-400) H 04/07/24 Sodium 133 mmol/L (135-145) L 04/15/24 Potassium 4.3 mmol/L (3.3-5.1) 04/15/24 Chloride 100 mmol/L (96-108) 04/15/24 Carbon Dioxide 23 mmol/L (22-29) 04/15/24 BUN 23 mg/dL (9-16) H 04/15/24 Creatinine 1.24 mg/dL (0.5-1.4) 04/15/24 Calcium 9.9 mg/dL (8.4-10.2) 04/15/24 Urine Creatinine 206.57 mg/dL 04/15/24 Assessment & Plan Assessment & Plan (1) Type 2 diabetes mellitus with diabetic polyneuropathy: Code(s): E11.42 - Type 2 diabetes mellitus with diabetic polyneuropathy Category: Medical Qualifiers: Diabetes mellitus adjunct faculty for medical terminology insulin use: with adjunct faculty for medical terminology use Qualified Code(s): E11.42 - Type 2 diabetes mellitus with diabetic polyneuropathy; Z79.4 - adjunct faculty for medical terminology (current) use of insulin (2) Adrenal adenoma: Comment: Most likely an incidentaloma Code(s): D35.00 - Benign neoplasm of unspecified adrenal gland Category: Medical (3) Hypertension: Code(s): I10 - Essential (primary) hypertension Category: Medical (4) PAD (peripheral artery disease): Comment: 04/11/2022 atherectomy and plasty of right SFA Code(s): I73.9 - Peripheral vascular disease, unspecified Category: Medical (5) Proteinuria: Code(s): R80.9 - Proteinuria, unspecified Category: Medical Plan . Middle-aged woman with longstanding diabetes mellitus with proteinuria. Renal function is normal at baseline with a baseline creatinine of 0.9 mg/dL. Proteinuria is most likely due to underlying diabetic nephropathy. Goal is to slow the progression of renal disease. I would maximize the HUONG inhibition. Since creatiien has bumped to 1.2, i have not increase HUONG inhibition Maintain blood pressure less than 130/80. She is not on any SGLT2 inhibitors due to history of DKA. Encouraged her to stay on low-sodium diet Increase p.o. fluid intake Continue to optimize blood sugar. Await pump Orders: Orders Basic Metabolic Panel 4 Months R80.9 - Proteinuria, unspecified Total Protein Urine Random 4 Months R80.9 - Proteinuria, unspecified Creatinine Urine 4 Months R80.9 - Proteinuria, unspecified Coding Level of Care Code Est Pt Level 4 (22276) Diagnoses Type 2 diabetes mellitus with diabetic polyneuropathy, with long-term current use of insulin E11.42; Z79.4 Diabetes mellitus custodial insulin use: with adjunct faculty for medical terminology use Adrenal adenoma D35.00 Hypertension I10 PAD (peripheral artery disease) I73.9 Proteinuria R80.9
== END 2024-05-18 12:31 | disposition home or self-care (01) ==
PROVIDERS: PCP Family Medicine; Visit Provider Internal Medicine Hypertension Specialist
DX: E11.42 Type 2 diabetes mellitus with diabetic polyneuropathy (principal); Z79.4 Long term (current) use of insulin; D35.00 Benign neoplasm of unspecified adrenal gland; I10 Essential (primary) hypertension; I73.9 Peripheral vascular disease, unspecified; R80.9 Proteinuria, unspecified
CPT/HCPCS: 99214

== ENCOUNTER → 2024-05-18 12:18 | Outpatient (BNVA) | payer MEDICARE, MEDICAID, SELFPAY | PROVIDERS: PCP Family Medicine; Visit Provider Internal Medicine Hypertension Specialist | DX: E11.42 Type 2 diabetes mellitus with diabetic polyneuropathy (principal); E11.51 Type 2 diabetes mellitus with diabetic peripheral angiopathy without gangrene; D35.00 Benign neoplasm of unspecified adrenal gland; I10 Essential (primary) hypertension; R80.9 Proteinuria, unspecified; F17.210 Nicotine dependence, cigarettes, uncomplicated; Z79.4 Long term (current) use of insulin | CPT/HCPCS: 99212 ==

== ENCOUNTER 2024-05-18 12:39 | Outpatient (AMB) | payer MEDICARE, MEDICAID, SELFPAY ==
--- NOTE | 2024-05-18 12:43 | A.OFFVIS_ITS ---
Intake Visit Reasons: DM Intake Note: Patient present today for Type 2 Diabetes Mellitus. Last Diabetic eye exam: Last Podiatry Visit: Random Glucose: mg/dl HgA1C: 10.2% 03/17/24 Airborne Weapons Technical Manager Required: No Accompanied by: Self / Same As Patient Allergies metformin Allergy (Unknown, Verified 05/18/24 12:22) dizziness fentanyl Adverse Reaction (Unknown, Verified 05/18/24 12:22) Vomiting PFSH Medical History Adrenal adenoma Hypertension Obesity due to excess calories Agoraphobia Stroke Asthma Peripheral neuropathy Depression Anxiety Class 1 obesity due to excess calories in adult Hyperlipidemia LDL goal <70 Type 2 diabetes mellitus with diabetic polyneuropathy Surgical History History of surgery Family History Mother Diabetes Father Diabetes Brother Hypertension Daughter Hypertension Social History Household Members: Children Alcohol intake: former Patient Tobacco Use Status: Current everyday Tobacco user Tobacco use type: Cigarette Cigarette Packs Per Day: 1 Cigarettes Per Day: 20.0 Substance Use Type: Marijuana Current occupational status: unemployed Assessment & Plan Assessment & Plan (1) Type 2 diabetes mellitus with diabetic polyneuropathy: Code(s): E11.42 - Type 2 diabetes mellitus with diabetic polyneuropathy Category: Medical Qualifiers: Diabetes mellitus [facility] insulin use: with ferry terminal agent use Qualified Code(s): E11.42 - Type 2 diabetes mellitus with diabetic polyneuropathy; Z79.4 - care home (current) use of insulin Plan: Patient at visit to set up an insert Dexcom G7, with phone khai Instructed patient sensors water proof you can shower, or swim do not submerge sensor in water for over 30 minutes Is sensor falls off cannot put back in you need to replace sensor, customer service number given to patient for sensor replacement Sensor placed on the back of Left arm. Patient left visit with sensor in warmup Patient stated it at today's visit she has been practicing with the insulin to c arb ratio, and correction factor in the Boluscalc khai She would like to transition from Vilma 2 sensor to Dexcom G7 sensor Message sent to Brendon at [employer] regarding ordering patient T slim insulin pump Reviewed how to interpret trend arrows Reminded patient that to check finger sticks if symptoms do not match sensor reading. Discussed lag time between finger stick and sensor data.? Instructed patient she should always keep blood glucometer for backup testing if needed Reviewed delay of CGM from fingersticks Reminded pt that if symptoms do not match sensor still needs to check fingersticks. Portions of this note were created using voice recognition software, please excuse any words or phrases that may have been misinterpreted. Patient Instructions: Patient instruction: CGM provides information on blood glucose control throughout the day, including hyperglycemia and hypoglycemia. ? Continue to monitor blood glucose as instructed. Follow nutrition guidelines provided. Report any discomfort promptly to health care provider. ?Stay well-hydrated. You can bathe ,shower, swim and exercise while wearing the glucose sensor. Do not submerge glucose sensor in water for more than 30 minutes. Coding Level of Care Code Tele Est Pt Level 1 (54062) Diagnoses Type 2 diabetes mellitus with diabetic polyneuropathy, with long-term current use of insulin E11.42; Z79.4 Diabetes mellitus ferry terminal agent insulin use: with ferry terminal agent use
== END 2024-05-18 13:23 | disposition home or self-care (01) ==
LOC: HO.ENCR 12:39
PROVIDERS: PCP Family Medicine; Visit Provider Registered Nurse Diabetes Educator
DX: E11.42 Type 2 diabetes mellitus with diabetic polyneuropathy (principal); Z79.4 Long term (current) use of insulin
CPT/HCPCS: 99211

== ENCOUNTER 2024-08-04 15:43 | Outpatient (AMB) | payer MEDICARE, MEDICAID, SELFPAY ==
[2024-08-04 15:44] VITALS: BP 116/76; PULSE 97; O2SAT 97
--- NOTE | 2024-08-04 15:44 | A.OFFVIS_ITS ---
Vital Signs 08/04/24 15:44 Height 5 ft 4 in BP 116/76 Blood Pressure Location Rt brachial Position Sitting Pulse 97 Pulse Source Pulse Oximeter Pulse Oximetry (%) 97 Oxygen Delivery Method Room Air Intake Visit Reasons: DM Intake Note: Patient presents today for a follow-up on Type 2 Diabetes Mellitus: Last Diabetic eye exam was on: DUE Last Podiatry exam was on: Patient does not see a Supervisor Tank Storage Most recent HbA1c: 9.5%, 08/04/2024 Random Glucose- 94 mg/dL, Today Solar Thermal Technician Required: No Accompanied by: Other Relationship Allergies metformin Allergy (Unknown, Verified 08/04/24 15:45) dizziness fentanyl Adverse Reaction (Unknown, Verified 08/04/24 15:45) Vomiting HPI Comments Details: Patient is 44 yo female with DM type 2 diagnosed at age 27 who presents for continued management of diabetes. Here today with her mother and daughter sees neph, kidney retinopathy laser retinal specialist refer to [facility] retinal bp from dme foot Past medical history: DM2, obesity, HLD. neuropathy, agoraphobia Micro and macrovascular complications: +neuropathy, + CVA, retinopathy, diabetic kidney disease with proteinuria dka with mounjaro Interval history Per patient's sensor fell off about 2 weeks ago and she did not have any backup lancets are test strips were glucometer to check her blood sugars hence she stopped taking mealtime insulin Perienltbrandy reports no interval hospitalizations Denies fevers, cold flu like symptoms Cyclobenzaprine is her only new medication , no steroids Random blood glucose today 349 mg/dL. She denies any nausea, vomiting currently. Says she was having some intermittent nausea over yesterday, however able to keep food down. We were unable to test her ketones in the urine as she only urinates in the head which we did not have in clinic. Diabetes medications: Tresiba 120 units at nighttime to 130 Fiasp prior to meals. With carb ratio 1:5 and insulin sensitivity factor 1:10 she has not been taking her bolus insulin for the past 2 weeks, she got back her sensor yesterday and only started taking Fiasp yesterday. generally 4-12 but rarely over 10 Actos 15 mg daily. [facility] Medical History Adrenal adenoma Hypertension Obesity due to excess calories Agoraphobia Stroke Asthma Peripheral neuropathy Depression Anxiety Class 1 obesity due to excess calories in adult Hyperlipidemia LDL goal <70 Type 2 diabetes mellitus with diabetic polyneuropathy Surgical History History of surgery Family History Mother Diabetes Father Diabetes Brother Hypertension Daughter Hypertension Social History Household Members: Children Alcohol intake: former Patient Tobacco Use Status: Current everyday Tobacco user Tobacco use type: Cigarette Cigarette Packs Per Day: 1 Cigarettes Per Day: 20.0 Substance Use Type: Marijuana Current occupational status: unemployed Physical Exam Vital Signs: Last Vital Signs Pulse 97 08/04/24 15:44 BP 116/76 08/04/24 15:44 Pulse Ox 97 08/04/24 15:44 Oxygen Delivery Method Room Air 08/04/24 15:44 Results AMB Hemoglobin A1c AMB Hemoglobin A1c 9.5 % Last Edit by ROMELIA Cortés on 08/04/24 16:01 Results Reviewed Results Reviewed: Laboratory Last Values Glucose (Clinic) 94 mg/dL (60-115) 08/04/24 15:51 Hgb A1c (Clinic) 9.5 % (4.0-6.0) H 08/04/24 16:00 Assessment & Plan Assessment & Plan Orders: Orders AMB Hemoglobin A1c 08/04/24 E11.42 - Type 2 diabetes mellitus with diabetic polyneuropathy, Z79.4 - [facility] (current) use of insulin Coding
[2024-08-04 15:55] LABS: Glucose, Whole Blood 94 mg/dL (60-115)
--- OUTSIDE RECORDS SUMMARY | 2024-08-04 18:38 | XMS_ITS | Clinical Summary ---
Author Organization [facility] Address [address] [place] [address] Phone Care Team Providers Care Tie Cutter Name Role Phone Lyla Escalante MD Primary Care Pr ovider Allergies Active Allergy Reactions Criticality Noted Date Comments Droperidol 07/23/2022 Fentanyl GI intolerance,Nause a And Vomiting 09/12/2023 Nasuea and vomiting Nasuea and vomiting Metformin 05/22/2016 Did not tolerate GI side effects Medications gabapentin (NEURONTIN) 600 mg tablet Take 1 tablet (600 mg total) by mouth 3 (three) times a day. Active venlafaxine XR (EFFEXOR-XR) 150 mg 24 hr capsule Take 1 capsule (150 mg total) by mouth daily. Active insulin degludec (TRESIBA FlexTouch U-200) 200 unit/mL (3 mL) CONCENTRATED injection pen Insulin Degludec (Tresiba FlexTouch) 200 UNIT/ML SOPN Inject under the skin. Active insulin lispro (HumaLOG) 100 unit/mL injection insulin lispro (HumaLOG) injection 100 units/mL Inject under the skin 3 (three) times a day before meals. -Administer within 15 minutes of a meal Active aspirin 81 mg EC tablet Take 1 tablet (81 mg total) by mouth. 09/12/19 24 Active Fiasp FlexTouch U-100 Insulin 100 unit/mL (3 mL) injection pen INJECT 16-20 UNITS SUBCUTANEOUSLY 3 TIMES DAILY BEFORE MEALS X30 DAYS DIRECTED Active ferrous sulfate 324 mg (65 mg elemental iron) EC tablet Take 1 tablet (324 mg total) by mouth 1 (one) time each day with breakfast. Do not crush, chew, or split. 90 tablet 1 03/16/20 24 Active atorvastatin (LIPITOR) 80 mg tablet TAKE 1 TABLET BY MOUTH EVERY DAY 90 tablet 1 04/02/20 24 Active lamoTRIgine (LaMICtal) 100 mg tablet Take 0.5 tablets (50 mg total) by mouth 2 (two) times a day. Take 1 tablet (100 mg total) by mouth daily. 04/15/20 24 Active hydrOXYzine HCL (ATARAX) 25 mg tabletIndication s:Anxiety and depression Take 1 tablet (25 mg total) by mouth 4 (four) times a day. 04/15/20 24 Active topiramate (TOPAMAX) 100 mg tabletIndication s:Anxiety and depression Take 1 tablet (100 mg total) by mouth at bedtime. 04/15/20 24 Active docusate sodium (Colace) 100 mg capsuleIndicatio ns:Other iron deficiency anemia Take 1 capsule (100 mg total) by mouth 1 (one) time each day. 90 each 1 04/15/20 24 025 Active clotrimazole-bet amethasone (LOTRISONE) 1-0.05 % creamIndications :Intertrigo Apply topically 2 (two) times a day. 15 g 1 04/15/20 24 Active losartan (Cozaar) 50 mg tablet Take 1 tablet (50 mg total) by mouth 1 (one) time each day. 90 each 1 04/15/20 24 025 Active busPIRone (BUSPAR) 15 mg tabletIndication s:Anxiety and depression Take 1 tablet (15 mg total) by mouth 2 (two) times a day. 04/15/20 24 Active albuterol HFA (ProAir HFA) 90 mcg/actuation inhalerIndicatio ns:Mild persistent asthma without complication Inhale 2 puffs by mouth every 4 (four) hours if needed for wheezing or shortness of breath. 18 g 1 04/15/20 24 025 Active budesonide (PULMICORT) 90 mcg/actuation inhalerIndicatio ns:Mild persistent asthma without complication Inhale 1 puff by mouth 2 (two) times a day. Rinse mouth with water after use to reduce aftertaste and incidence of candidiasis. Do not swallow. 1 each 1 04/15/20 24 025 Active naproxen (NAPROSYN) 500 mg tablet TAKE 1 TABLET BY MOUTH TWICE A DAY NEEDED FOR PAIN 180 tablet 1 05/11/19 25 Active Active Problems Problem Noted Date Diagnosed Date Asthma 04/15/2024 Assessment & Plan (04/15/2024 4:29 PM EST): Will switch from flovent to pulmicort given flovent was discontinued from the market Orders: albuterol HFA (ProAir HFA) 90 mcg/actuation inhaler; Inhale 2 puffs by mouth every 4 (four) hours if needed for wheezing or shortness of breath. budesonide (PULMICORT) 90 mcg/actuation inhaler; Inhale 1 puff by mouth 2 (two) times a day. Rinse mouth with water after use to reduce aftertaste and incidence of candidiasis. Do not swallow. Intertrigo 04/15/2024 Assessment & Plan (04/15/2024 4:29 PM EST): Advised to apply barrier cream such as desitin or A+D ointment This is located under both breasts Apply lotrisone as prescribed When her diabetes is better controlled, she is interested in getting a breast reduction. Orders: clotrimazole-betamethasone (LOTRISONE) 1-0.05 % cream; Apply topically 2 (two) times a day. Iron deficiency anemia 09/12/2023 Assessment & Plan (04/15/2024 4:29 PM EST): Continue ferrous sulfate; has constipation. Docusate sent to help with this Orders: docusate sodium (Colace) 100 mg capsule; Take 1 capsule (100 mg total) by mouth 1 (one) time each day. Adenoma of right adrenal gland 09/12/2023 Overview (04/15/2024): MRI abdomen-IMPRESSION: Benign right adrenal adenoma. (june 2023) Marijuana use 02/04/2023 Assessment & Plan (04/15/2024 4:29 PM EST): Not ready to quit DM type 2 causing eye disease 03/05/2022 Non-proliferative diabetic retinopathy, left eye 12/25/2021 Assessment & Plan (04/15/2024 4:29 PM EST): Overdue for eye exam and was referred for this Orders: Ambulatory referral to Ophthalmology; Future Proliferative diabetic retinopathy of right eye 12/25/2021 Assessment & Plan (04/15/2024 4:29 PM EST): Overdue for eye exam and was referred for this Orders: Ambulatory referral to Ophthalmology; Future Hemiparesis due to old cerebral infarction 07/14 Overview (04/15/2024): Left hand weakness Carotid stenosis, right 08/02/2020 Overview (04/15/2024): [facility] 07/19/2020 moderate focal stenosis prox R ICA, diffusely diminutive caliber R ICA distal to stenosis DM (diabetes mellitus), type 2 with peripheral vascular complications 08/02/2020 Hypertension 04/13/2020 Assessment & Plan (04/15/2024 4:29 PM EST): 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 Follows with Arti Hudson at [facility] in [place] . Continue therapy weekly. Hyperlipidemia 07/16/2018 Assessment & Plan (04/15/2024 4:29 PM EST): Continue lipitor 80mg daily Orders: Hepatic function panel; Future Lipid panel with reflex to direct LDL; Future Peripheral polyneuropathy 01/16/2017 DM (diabetes mellitus), type 2 with neurological complications 08/14/2016 Overview (04/15/2024): Patient is seen at [facility] endocrinology group Assessment & Plan (04/15/2024 4:29 PM EST): Last A1c was in December was 10.6 She will continue follow-up with her professor of literacy at [facility] as well as her insulin regimen. Reports that the plan is for her to be placed on an insulin pump next year. Continue gabapentin 600mg QID for neuropathy. Orders: Hemoglobin A1c; Future Severe obesity with body mas s index (BMI) of 35.0 to 39.9 with serious comorbidity 05/03/2014 Assessment & Plan (04/15/2024 4:29 PM EST): Resolved Problems Problem Noted Date Diagnosed Date Resolved Date Cannabinoid hyperemesis syndrome 07/14/2021 04/15/2024 Encounters Date Type Department Care Team Description 07/13/[address] [phone] Lyla Escalante MD Forms/questionnaires 05/07/2024 Telephone [facility] [address] [place] [phone] Kat Almanzar from Last 3 Months Immunizations Name Administration Dates Next Due Influenza Quadrivalent, 0.5m l, preservative free (Fluarix; FluLaval; Fluzone) ages 6mo and older (Afluria) 3yo and older 04/29/2023 Influenza trivalent, MDCK, 0 .5mL, preservative free (Flucelvax) 6mo and older 04/15/2024 Pneumococcal conjugate 20 va lent (Prevnar 20, PCV 20) 2mo and older 04/15/2024 Tdap Tetanus diptheria acell ular pertussis (Boostrix; Adacel) 7yo and older 05/03/2014 Surgical History Surgery Date Site/Laterality Comments OTHER SURGICAL HISTORY right leg vascular surgery Medical History Medical History Date Comments Asthma DX:Asthma Diabetes mellitus type II DX:Denisha betes mellitus type II High cholesterol DX:High cholest bertha Type 2 diabetes mellitus, uncontrolled 05/03/2014 DX:Type 2 diabetes mellitus, uncontrolled Obesity 05/03/2014 DX:Obesity Tobacco use 05/03/2014 DX:Tobacco use Miscarriage 2016 DX:Miscarriage Carotid stenosis, right 08/02/2020 DX:Carot id stenosis, right; COMMENT: [facility] 07/19/2020 moderate focal stenosis prox R ICA, diffusely diminutive caliber R ICA distal to stenosis DM (diabetes mellitus), type 2 with peripheral vascular complications (CMS/HCC) 08/02/2020 DX:DM (diabetes mellitus), t ype 2 with peripheral vascular complications (HCC) DM (diabetes mellitus), type 2 with neurological complications (CMS/HCC) 08/14/2016 DX:DM (diabetes m ellitus), type 2 with neurological complications (HCC); COMMENT: Patient is seen at [facility] endocrinology group 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 (CMS/HCC) 03/05/2022 DX:DM type 2 causing eye dis ease (HCC) History of cerebral embolic infarction 08/11/2019 DX:History of cerebral embol ic infarction; COMMENT: June 2019 Hemiparesis due to old cereb ral infarction (CMS/HCC) 07/14/2021 DX:Hemiparesis due to old ce rebral infarction (HCC) Severe obesity with body mas s index (BMI) of 35.0 to 39.9 with serious comorbidity (CMS/HCC) 05/03/2014 DX:Severe obesity with body mass index (BMI) of 35.0 to 39.9 with serious comorbidity (HCC) Abnormal Pap smear of cervix Cannabinoid hyperemesis syndrome 07/14/2021 Family History Medical History Relation Name Comments Ovarian cancer Paternal Grandmother Breast cancer Neg Hx Colon cancer Neg Hx Relation Name Status Comments Brother Alive Healthy Daughter 1 Alive Asthma Daughter 2 Alive Asthma Daughter 3 Alive Father Alive Maternal Grandfather DM, [place] Maternal Grandmother Mother Alive Healthy Paternal Grandfather DM Paternal Grandmother Cervica l CA Social History Tobacco Use Types Packs/Day Years Used Date Smoking Tobacco: Every Day Cigarettes Smokeless Tobacco: Never Tobacco Cessation:Ready to Q uit: Not Asked; Counseling Given: Not Answered Alcohol Use Standard Drinks/Week Comments No 0 (1 standard drink = 0.6 oz pur e alcohol) Housing Instability Answer Date Recorde d Are you worried that in the next 2 months you may not have stable housing? No 04/20/2024 Food Access & Nutrition Answer Date Rec orded Do you have access to a vari ety of food including fruits and vegetables? No 04/20/2024 Health Literacy Answer Date Recorded How often do you need to hav e someone help you when you read instructions, pamphlets, or other written material from your doctor or pharmacy? Never 04/20/2024 Caregiver: How often do you need to have someone help you when you read instructions, pamphlets, or other written material from your doctor or pharmacy? Not on file 04/20/2024 Financial Risk Answer Date Recorded How hard is it for you to pa y for the very basics like food, housing, medical care, and air conditioning / heating? Very hard 04/20/2024 Transportation Answer Date Recorded Has the lack of transportati on kept you from meetings, work, or from getting things needed for daily living? Yes Has the lack of transportati on kept you from medical appointments or from getting medications? Yes 04/20/2024 Social Isolation Answer Date Recorded How often do you feel lonely or isolated from th ose around you? Never 04/20/2024 Food Risk Answer Date Recorded Within the past 12 months we worried whether our food would run out before we got money to buy more. Often true 04/20/2024 Within the past 12 months th e food we bought just didn't last and we didn't have money to get more. Often true 04/20/2024 Dependent Care Answer Date Recorded Do you need help finding or paying for care for your loved ones. For example, exceptional children teacher or elderly care for an older adult? No 04/20/2024 Education Answer Date Recorded Do you think completing more education or training, like finishing a GED, going to college, or learning a trade, would be helpful for you? No 04/20/2024 Employment and Income Answer Date Recor ded During the last four weeks, have you been actively looking for work? No 04/20/2024 Living Situation Answer Date Recorded What is your living situation? 1 06/21/2023 Comments Unknown Sex and Gender Information Value Date Recorded Sex Assigned at Not on file Legal Sex Female 6:05 PM EDT Gender Identity Not on file Sexual Orientation Not on file Obstetrics History Last Filed Vital Signs Vital Sign Reading Time Taken Comments Blood Pressure 134/87 04/15/2024 2:57 PM EST Pulse 89 04/15/2024 4:17 PM EST Temperature 36.8 ??C (98.3 ??F) 04/15/2024 2:57 PM ES T Respiratory Rate 17 04/15/2024 2:57 PM EST Oxygen Saturation 98% 03/16/2024 1:10 PM EST Inhaled Oxygen Concentration - - Weight 96.6 kg (213 lb) 04/15/2024 2:57 PM EST Height 162.6 cm (5' 4 ) 04/15/2024 2:57 PM EST Body Mass Index 36.56 04/15/2024 2:57 PM EST Plan of Treatment Upcoming Encounters Date Type Department Care Team (Late st Contact Info) Description 08/17/2024 3:30 PM EDT Office Visit Adult Medicine [facility] [address] [place] [phone] Lyla Escalante MD [address] [place] [address] 09/14/2024 3:15 PM EDT Office Visit [facility] Hematology Oncology [address] [place] [phone] Alexandra Rodriguez PA [address] [place] [address] Health Maintenance Due Date Last Done Comments Breast Cancer Screening 1980 Diabetes: Annual Foot Exam 1990 Diabetes: Annual Retina Eye Exam 1990 Hepatitis B Vaccines (1 of 3 - 19+ 3-dose series) 07/19/1999 Cervical Cancer Screening: P ap Smear 2001 Cholesterol Screening (Lipid Panel) 04/01/2022 HIV Screening 04/01/2022 Hepatitis C Screening 04/01/2022 Medicare Annual Wellness Visit 04/01/2022 COVID-19 Vaccine (3 - 2023-2 5 season) 2023 04/10/2021, 03/13/2021 DTaP,Tdap,and Td Vaccines (2 - Td or Tdap) 05/03/2024 05/03/2014 Diabetes: Blood Sugar Contro l Test (HGBA1C) 07/13/2024 01/14/2024 Diabetes: Annual GFR (Glomerular Filtration Rate) 01/13/2025 01/14/2024 Hypertension/CHF/CAD Annual BMP Blood Test 01/13/2025 01/14/2024 Diabetes: Annual Urine Albumin-Creatinine Ratio (uACR) 02/02/2025 02/03/2024 Depression Screening 04/15/2025 04/15/2024 Social Influencers of Health Screening 04/20/2025 04/20/2024 Influenza Vaccine Completed 04/15/2024, 04/29/2023 Pneumococcal Vaccine: Pediatrics (0 to 5 Years) and At-Risk Patients (6 to 64 Years) Completed 04/15/2024 HIB Vaccines Aged Out No longer eligi ble based on patient's age to complete this topic HPV Vaccines Aged Out No longer eligi ble based on patient's age to complete this topic Hepatitis A Vaccines Aged Out No long er eligible based on patient's age to complete this topic IPV Vaccines Aged Out No longer eligi ble based on patient's age to complete this topic MMR Vaccines Aged Out No longer eligi ble based on patient's age to complete this topic Meningococcal ACWY Vaccine Aged Out N o longer eligible based on patient's age to complete this topic Meningococcal B Vaccine Aged Out No l onger eligible based on patient's age to complete this topic RSV Immunization Patients Under 20 months Aged Out No longer eligible b ased on patient's age to complete this topic Varicella Vaccines Aged Out No longer eligible based on patient's age to complete this topic Insurance MEDICAID - [place] AET[place] MEDICARE ADVANTAGE Care Teams Tie Cutter Relationship Specialty Start Date End Date Lyla Escalante MD [address] [place] [phone] PCP - General Internal Medicine 12/18/23
--- OUTSIDE RECORDS SUMMARY | 2024-08-04 18:38 | XMS_ITS ---
Author Organization [facility] Address [address] [place] [address] Phone Care Team Providers Care Purchasing Officer Name Role Phone Llya Escalante MD Primary Care Pr ovider [facility] - Food Insecurity Status:Ongoing (Active) Start date:04/20/2024 Enrollment date:04/20/2024 Enrollment reason:Identified as high-risk Related social drivers of health:Food Risk Related program episode:Community Health Worker Program (Closed) Overview Community Health Worker Program - Food Insecurity Service Episode Case Team Name Relationship Phone Kat Almanzar Community Health Worker(Respons ible Staff) Continued Care and Services Coordination
--- OUTSIDE RECORDS SUMMARY | 2024-08-04 18:38 | XMS_ITS | Clinical Summary ---
Author Organization [facility] Address [address] [place] [address] Care Team Providers Care Supply Coordinator Name Role Phone Lyla Escalante MD Primary Care Pr ovider Allergies Active Allergy Reactions Criticality Noted Date Comments Droperidol 07/22/2023 Fentanyl Nausea And Vomiting 09/12/2023 Nasuea and vomiting Metformin 07/22/2023 Medications Medication Sig Dispensed Refills Start Date End Date Status atorvastatin (LIPITOR) tablet 80 mg Take 1 tablet (80 mg total) by mouth daily. 0 Active gabapentin (NEURONTIN) 600 MG tablet Take 1 tablet (600 mg total) by mouth 3 (three) times a day. 0 Active losartan (COZAAR) tablet 25 mg Take 1 tablet (25 mg total) by mouth daily. 0 Active naproxen (NAPROSYN) 500 MG tablet Take 1 tablet (500 mg total) by mouth 2 (two) times a day with meals. 0 Active Albuterol Sulfate 108 (90 Base) MCG/ACT AEPB Inhale into the lungs. 0 Active ezetimibe (ZETIA) tablet 10 mg Take 1 tablet (10 mg total) by mouth daily. 0 Active busPIRone (BUSPAR) 10 MG tablet Take 1 tablet (10 mg total) by mouth 3 (three) times a day. 0 Active hydrOXYzine (VISTARIL) 25 MG/ML injection Inject into the muscle. 0 Active lamoTRIgine (LaMICtal) 100 MG tablet Take 1 tablet (100 mg total) by mouth daily. 0 Active clopidogrel (PLAVIX) 75 MG tablet Take 1 tablet (75 mg total) by mouth daily. 0 Active metoclopramide (REGLAN) tablet 10 mg Take 1 tablet (10 mg total) by mouth 4 (four) times a day. 0 Active topiramate (TOPAMAX) 100 MG tablet Take 1 tablet (100 mg total) by mouth 2 (two) times a day. 0 Active venlafaxine (Effexor XR) 150 MG 24 hr capsule Take 1 capsule (150 mg total) by mouth daily. 0 Active insulin lispro (HumaLOG) injection 100 units/mL Inject under the skin 3 (three) times a day before meals. 0 Active Insulin Degludec (Tresiba FlexTouch) 200 UNIT/ML SOPN Inject under the skin. 0 Active Active Problems Problem Noted Date Diagnosed Date Iron deficiency anemia 09/09/2023 Family History Medical History Relation Name Comments Cancer Maternal Grandfather Cancer Maternal Uncle Cancer Paternal Grandmother Relation Name Status Comments Maternal Grandfather Maternal Uncle Paternal Grandmother Social History Tobacco Use Types Packs/Day Years Used Date Smoking Tobacco: Every Day Cigarettes 1 Smokeless Tobacco: Never Alcohol Use Standard Drinks/Week Comments Not Currently 0 (1 standard drink = 0.6 oz pur e alcohol) Sex and Gender Information Value Date Recorded Sex Assigned at Not on file Gender Identity Not on file Sexual Orientation Not on file Job Start Date Occupation Industry Not on file Not on file Not on file Last Filed Vital Signs Vital Sign Reading Time Taken Comments Blood Pressure 134/76 10/21/2023 5:23 PM EDT Pulse 81 10/21/2023 2:45 PM EDT Temperature 36.6 ??C (97.9 ??F) 10/21/2023 2:45 PM ED T Respiratory Rate 18 10/21/2023 2:45 PM EDT Oxygen Saturation 99% 10/21/2023 2:45 PM EDT Inhaled Oxygen Concentration - - Weight 99.8 kg (220 lb) 09/09/2023 1:17 PM EDT Height - - Body Mass Index - - Plan of Treatment Health Maintenance Due Date Last Done Comments Hepatitis B Vaccines (1 of 3 - 3-dose series) 1980 Hepatitis C Screening 1980 COVID-19 Vaccine (#1) 01/18/1981 Pneumococcal Vaccine (1 of 2 - PCV) 1986 Depression Screening 1992 Preventative Health Evaluation 1998 Tobacco Cessation Counseling 1998 Cervical Cancer Screening (P ap Smear) 2001 Influenza Vaccine (#1) 2023 DTap / Tdap / Td (2 - Td or Tdap) 05/03/2024 015 RSV Ped < 20 months Aged Out No longe r eligible based on patient's age to complete this topic Care Teams Supply Coordinator Relationship Specialty Start Date End Date Lyla Escalante MD [address] [place] [phone] PCP - General 06/18/23
--- OUTSIDE RECORDS SUMMARY | 2024-08-04 18:38 | XMS_ITS | Encounter Summary ---
Author Organization [facility] Address [address] [place] [address] Care Team Providers Care Medical Imaging Technologist Name Role Phone Lyla Escalante MD Primary Care Pr ovider Encounter Details Date Type Department Care Team ([facility] st Contact Info) Description 04/20/2024 Community Care Management [facility] [address] [place] [phone] Kat Almanzar Social History Tobacco Use Types Packs/Day Years Used Date Smoking Tobacco: Every Day Cigarettes Smokeless Tobacco: Never Alcohol Use Standard Drinks/Week Comments No 0 [...] care for your loved ones. For example, director child abuse therapy or elderly care for an older adult? [...] on file Sexual Orientation Not on file documented as of this encounter Plan of Treatment Upcoming Encounters Date Type Department Care Team (Late st Contact Info) Description 08/17/2024 3:30 PM EDT Office Visit Adult Medicine [address] [phone] Lyla Escalante MD [address] [place] [address] 09/14/2024 3:15 PM EDT Office Visit [facility] Hematology Oncology [address] [place] [phone] Alexandra Rodriguez PA [address] [place] [address] documented as of this encounter Visit Diagnoses Not on filedocumented in this encounter Additional Health Concerns Assessment Noted Time PHQ-9 Depression Total Score: 8 04/15/20 24 2:00 PM EST documented as of this encounter Care Teams Medical Imaging Technologist Relationship Specialty Start Date End Date Lyla Escalante MD [address] [place] [phone] PCP - General Internal Medicine 12/18/23 documented as of this encounter
== END 2024-08-04 16:21 | disposition home or self-care (01) ==
LOC: HO.ENCR 15:43
PROVIDERS: PCP Family Medicine; Visit Provider Nurse Practitioner Adult Health
DX: E11.42 Type 2 diabetes mellitus with diabetic polyneuropathy (principal); Z79.4 Long term (current) use of insulin

== ENCOUNTER → 2024-08-04 15:43 | Outpatient (BNVA) | payer MEDICARE, MEDICAID, SELFPAY | PROVIDERS: PCP Family Medicine; Visit Provider Nurse Practitioner Adult Health | DX: E11.42 Type 2 diabetes mellitus with diabetic polyneuropathy (principal); Z79.4 Long term (current) use of insulin | CPT/HCPCS: 82947; 83036; 99212 ==

== ENCOUNTER 2024-08-10 14:53 | Outpatient (REF) | payer MEDICARE, SELFPAY ==
--- NOTE | ~2024-08-10 | US_ITS ---
EXAMINATION: Noninvasive assessment of the bilateral lower extremities with ARTERIAL DUPLEX, ANKLE BRACHIAL INDICES (ABIs), and PULSE VOLUME RECORDINGS (PVRs). ULTRASOUND ABDOMINAL AORTA ANEURYSM SCREENING. CLINICAL INFORMATION: Peripheral vascular disease, unspecified. Status post stent in the right lower extremity.. TECHNIQUE: Duplex Doppler techniques with waveform analysis and measurement of velocities in the bilateral common femoral, profunda femoris, superficial femoral, popliteal and tibial arteries were performed. Additionally, ankle pulse volume recordings, ankle pressure measurements and ankle brachial indices were obtained of the lower extremity arterial system bilaterally. The study was performed only at rest. Duplex Doppler arterial ultrasound abdominal aorta and iliac arteries. COMPARISON: None FINDINGS: DIRECT DUPLEX DOPPLER FINDINGS: RIGHT LEG: Common femoral artery: 176 cm/s, phasicity: Monophasic. Profunda femoris artery: 105 cm/s, phasicity: Monophasic. Superficial femoral artery (proximal): No color Doppler. Superficial femoral artery (mid): No color Doppler. Superficial femoral artery (distal): 95 cm/s, phasicity: Monophasic. Popliteal artery: 67 cm/s, phasicity: Monophasic. Posterior tibial artery: 25 cm/s, phasicity: Monophasic. Peroneal artery: Normal color Doppler. Anterior tibial artery: 26 cm/s, phasicity: Monophasic. Dorsalis pedis artery: 31 cm/s, phasicity:Monophasic. Collateral flow in the distal femoral artery. LEFT LEG: Common femoral artery: 174 cm/s, phasicity: Monophasic Profunda femoris artery: 127 cm/s, phasicity: Monophasic Superficial femoral artery (proximal): 94 cm/s, phasicity: Monophasic. Superficial femoral artery (mid): 447 cm/s, phasicity: Monophasic. Spectral broadening. Superficial femoral artery (distal): 113 cm/s, phasicity: Monophasic. Spectral broadening. Popliteal artery: 48 cm/s, phasicity: Monophasic. Posterior tibial artery: 15 cm/s, phasicity: Monophasic. Peroneal artery: No color Doppler. Anterior tibial artery: 32 cm/s, phasicity: Monophasic. Dorsalis pedis artery: 51 cm/s, phasicity: Monophasic. BRACHIAL PRESSURES: Right: 169 Left: Not measured. ANKLE PRESSURES: Right: PT 92, DP not measured. Left: PT 105, DP 80 ANKLE-BRACHIAL INDEX: Right: 0.54 Left: 0.62 ANKLE PVR WAVEFORMS: Right: Abnormal. Left: Abnormal ARTERIAL SPECTRAL DOPPLER ABDOMINAL AORTA: Peak systolic velocities and diameter as follow: Proximal segment: 97 cm/s and 1.6 cm. Mid segment: 84 cm/s and 1.6 cm. Distal segment: 98 cm/s and 1.7 cm. Right iliac artery: Common iliac artery not seen. External: 187 cm/s. Left iliac artery: Common iliac artery not seen. External: 337 cm/s. US/US arterial duplex BI w/ KEELY IMPRESSION: Right leg: Occluded proximal and mid superficial femoral arteries with collateral flow. Stent is not identified. Severe inflow disease throughout the interrogated arteries. Left leg: Severe inflow disease throughout the interrogated arteries. No abdominal aortic aneurysm. Elevated peak systolic velocities, left external iliac artery suggestive hemodynamically high degree stenosis. KEELY Reference: - >1.4 = calcified vessels - 0.9 - 1.4 = normal - no significant arterial disease - 0.7 - 0.89 = mild peripheral arterial disease - 0.51 - 0.69 = moderate peripheral arterial disease - d 0.50 = severe peripheral arterial disease - < .30 = critical arterial disease Electronically signed by: Scott Young MD 08/12/2024 07:57 AM EDT
--- OUTSIDE RECORDS SUMMARY | 2024-08-10 17:27 | XMS_ITS | Clinical Summary ---
Author Organization [facility] Address [address] [place] [address] Care Team Providers Care Dry Press Operator Helper Name Role Phone Lyla Escalante MD Primary [...] age to complete this topic Care Teams Dry Press Operator Helper Relationship Specialty Start Date End Date Lyla Escalante MD [address] [place] [address] PCP - General 06/18/23
--- OUTSIDE RECORDS SUMMARY | 2024-08-10 17:27 | XMS_ITS | Encounter Summary ---
Author Organization [facility] Address [address] [place] [address] Care Team Providers Care Regrader Name Role Phone Lyla Escalante MD Primary Care Pr ovider Encounter Details Date Type Department Care Team ([facility] st Contact Info) Description 04/20/2024 Community Care Management [place] [facility] [facility] [address] [place] [phone] Kat Almanzar Social History Tobacco [...] care for your loved ones. For example, rn child or elderly care for an older adult? [...] 3:30 PM EDT Office Visit Adult Medicine [address] [phone] Lyla Escalante MD [address] [place] [address] 09/14/2024 3:15 PM EDT Office Visit [facility] Hematology Oncology [address] [place] [phone] Alexandra Rodriguez PA [address] [place] [address] documented as of this encounter Visit Diagnoses Not on filedocumented in this encounter Additional Health Concerns Assessment Noted Time PHQ-9 Depression Total Score: 8 04/15/20 24 2:00 PM EST documented as of this encounter Care Teams Regrader Relationship Specialty Start Date End Date Lyla Escalante MD [address] [place] [phone] PCP - General Internal Medicine 12/18/23 documented as of this encounter
--- OUTSIDE RECORDS SUMMARY | 2024-08-10 17:27 | XMS_ITS ---
Author Organization [facility] Address [address] [place] [address] Phone Care Team Providers Care Trampoline Team Coach Name Role Phone Lyla Escalante MD Primary Care Pr ovider [facility] [...]
--- OUTSIDE RECORDS SUMMARY | 2024-08-10 17:27 | XMS_ITS | Clinical Summary ---
Author Organization [facility] Address [address] [place] [address] Phone Care Team Providers Care Water Resources Technical Officer Name Role Phone Lyla Escalante MD Primary [...] 1 tablet (81 mg total) by mouth. 024 Active Fiasp FlexTouch U-100 Insulin 100 unit/mL (3 mL) injection pen INJECT 16-20 UNITS SUBCUTANEOUSLY 3 TIMES DAILY BEFORE MEALS X30 DAYS DIRECTED Active ferrous sulfate 324 mg (65 mg elemental iron) EC tablet Take 1 tablet (324 mg total) by mouth 1 (one) time each day with breakfast. Do not crush, chew, or split. 90 tablet 1 Active atorvastatin (LIPITOR) 80 mg tablet TAKE 1 TABLET BY MOUTH EVERY DAY 90 tablet 1 Active lamoTRIgine (LaMICtal) 100 mg tablet Take 0.5 tablets (50 mg total) by mouth 2 (two) times a day. Take 1 tablet (100 mg total) by mouth daily. Active hydrOXYzine HCL (ATARAX) 25 mg tabletIndicatio ns:Anxiety and depression Take 1 tablet (25 mg total) by mouth 4 (four) times a day. Active topiramate (TOPAMAX) 100 mg tabletIndicatio ns:Anxiety and depression Take 1 tablet (100 mg total) by mouth at bedtime. Active docusate sodium (Colace) 100 mg capsuleIndicati ons:Other iron deficiency anemia Take 1 capsule (100 mg total) by mouth 1 (one) time each day. 90 each 1 024 2024 Active clotrimazole-be tamethasone (LOTRISONE) 1-0.05 % creamIndication s:Intertrigo Apply topically 2 (two) times a day. 15 g 1 Active losartan (Cozaar) 50 mg tablet Take 1 tablet (50 mg total) by mouth 1 (one) time each day. 90 each 1 024 2024 Active busPIRone (BUSPAR) 15 mg tabletIndicatio ns:Anxiety and depression Take 1 tablet (15 mg total) by mouth 2 (two) times a day. Active albuterol HFA (ProAir HFA) 90 mcg/actuation inhalerIndicati ons:Mild persistent asthma without complication Inhale 2 puffs by mouth every 4 (four) hours if needed for wheezing or shortness of breath. 18 g 1 024 2024 Active budesonide (PULMICORT) 90 mcg/actuation inhalerIndicati ons:Mild persistent asthma without complication Inhale 1 puff by mouth 2 (two) times a day. Rinse mouth with water after use to reduce aftertaste and incidence of candidiasis. Do not swallow. 1 each 1 024 2024 Active naproxen (NAPROSYN) 500 mg tablet TAKE 1 TABLET BY MOUTH TWICE A DAY NEEDED FOR PAIN 180 tablet 1 025 Active cyclobenzaprine (FLEXERIL) 5 mg tabletIndicatio ns:Muscle spasm of both lower legs TAKE 1 TABLET BY MOUTH AT BEDTIME NEEDED FOR MUSCLE SPASMS. 30 tablet 1 025 Active cyclobenzaprine (FLEXERIL) 5 mg tabletIndicatio ns:Muscle spasm of both lower legs Take 1 tablet (5 mg total) by mouth at bedtime as needed for muscle spasms. 30 tablet 1 024 2024 Discontinued Active Problems Problem Noted Date Diagnosed Date [...] quit DM type 2 causing eye disease ([facility] V24, [facility] V28) 03/05/2022 Non-proliferative diabetic r etinopathy, left eye ([facility] V24, [facility] V28) 12/25/2021 Assessment & Plan (04/15/2024 4:29 PM EST): Overdue for eye exam and was referred for this Orders: Ambulatory referral to Ophthalmology; Future 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 ([facility] V24, [facility] V28) 12/25/2021 Assessment & Plan (04/15/2024 4:29 PM EST): Overdue for eye exam and was referred for this Orders: Ambulatory referral to Ophthalmology; Future Hemiparesis due to old cereb ral infarction ([facility] V24, [facility] V28) 07/14/2021 Overview (04/15/2024): Left hand weakness Carotid stenosis, right 08/02/2020 Overview (04/15/2024): CTA ASS 07/19/2020 moderate focal stenosis prox R ICA, diffusely diminutive caliber R ICA distal to stenosis DM (diabetes mellitus), type 2 with peripheral vascular complications ([facility] V24, [facility] V28) 08/02/2020 Hypertension 04/13/2020 Assessment & Plan (04/15/2024 4:29 PM EST): 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 Follows with Arti Hudson at [facility] in [place] . Continue therapy weekly. Hyperlipidemia 07/16/2018 Assessment & Plan (04/15/2024 4:29 PM EST): Continue lipitor 80mg daily Orders: Hepatic function panel; Future Lipid panel with reflex to direct LDL; Future Peripheral polyneuropathy 01/16/2017 DM (diabetes mellitus), type 2 with neurological complications ([facility] V24, [facility] V28) 08/14/2016 Overview (04/15/2024): Patient is seen at [facility] endocrinology group Assessment & Plan (04/15/2024 4:29 PM EST): Last A1c was in December was 10.6 She will continue follow-up with 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 Reports that the plan is for her to be placed on an insulin pump next year. Continue gabapentin 600mg QID for neuropathy. Orders: Hemoglobin A1c; Future Severe obesity with body mas s index (BMI) of 35.0 to 39.9 with serious comorbidity ([facility] V24, [facility] V28) 05/03/2014 Assessment & Plan (04/15/2024 4:29 PM EST): Resolved Problems Problem Noted Date Diagnosed Date Resolved Date Cannabinoid hyperemesis syndrome 07/14/2021 04/15/2024 Encounters Date Type Department Care Team Description 07/13/2024 Telephone Adult Medicine [address] [phone] Lyla Escalante MD Forms/questionnaires from Last 3 Months Immunizations Name Administration [...] DX:Obesity Tobacco use 05/03/2014 DX:Tobacco use Miscarriage 2015 DX:Miscarriage Carotid stenosis, right 08/02/2020 DX:Carot id stenosis, right; COMMENT: CTA ASS 07/19/2020 moderate focal stenosis prox R ICA, diffusely diminutive caliber R ICA distal to stenosis DM (diabetes mellitus), type 2 with peripheral vascular complications (CMS/HCC V24, [facility] V28) 08/02/2020 DX:DM (diabetes mellitus), type 2 with peripheral vascular complications (HCC) DM (diabetes mellitus), type 2 with neurological complications (CMS/HCC V24, CMS/HCC V28) 08/14/2016 DX:DM (diabetes mellitus), t ype 2 with neurological complications (HCC); COMMENT: Patient is seen at [facility] endocrinology group 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 (CMS/HCC V24, [facility] V28) 03/05/2022 DX:DM type 2 causing eye di sease (HCC) History of cerebral embolic infarction 08/11/2019 DX:History of cerebral embol ic infarction; COMMENT: June 2019 Hemiparesis due to old cereb ral infarction (CMS/HCC V24, CMS/HCC V28) 07/14/2021 DX:Hemiparesis d ue to old cerebral infarction (HCC) Severe obesity with body mas s index (BMI) of 35.0 to 39.9 with serious comorbidity (CMS/HCC V24, CMS/HCC V28) 05/03/2014 DX:Severe obesity with body mass index [...] care for your loved ones. For example, child day care teacher or elderly care for an older [...] 3:30 PM EDT Office Visit Adult Medicine [address] [phone] Lyla Escalante MD [address] [place] [id number] 09/14/2024 3:15 PM EDT Office Visit [facility] Hematology Oncology [address] [place] [id number] Alexandra Rodriguez PA [address] [place] [address] Health Maintenance Due Date Last Done Comments [...] - [place] [employer] Care Teams Water Resources Technical Officer Relationship Specialty Start Date End Date Lyla Escalante MD [address] [place] [phone] PCP - General Internal Medicine 12/18/23
== END 2024-08-10 14:54 | disposition home or self-care (01) ==
LOC: HO.US 14:53
PROVIDERS: PCP Family Medicine; Visit Provider Surgery Vascular Surgery
DX: I73.9 Peripheral vascular disease, unspecified (principal); Z95.828 Presence of other vascular implants and grafts
CPT/HCPCS: 76706; 93922; 93925

== ENCOUNTER → 2024-08-10 14:56 | Outpatient (BNV) | payer MEDICARE, SELFPAY | PROVIDERS: PCP Family Medicine; Visit Provider Radiology Diagnostic Radiology | DX: I73.9 Peripheral vascular disease, unspecified (principal); Z13.6 Encounter for screening for cardiovascular disorders | CPT/HCPCS: 76706; 93922; 93925 ==

== ENCOUNTER 2024-09-02 14:51 | Outpatient (REF) | payer MEDICARE, SELFPAY ==
--- OUTSIDE RECORDS SUMMARY | 2024-09-02 15:58 | XMS_ITS ---
Author Organization [facility] Address [address] [place] [address] Phone Care Team Providers Care Track Welder Name Role Phone Lyla Escalante MD Primary [...]
--- OUTSIDE RECORDS SUMMARY | 2024-09-02 15:58 | XMS_ITS | Clinical Summary ---
Author Organization [facility] Address [address] [place] [address] Care Team Providers Care Network Systems Analyst Name Role Phone Lyla Escalante MD Primary [...] age to complete this topic Care Teams Network Systems Analyst Relationship Specialty Start Date End Date Lyla Escalante MD [address] [place] [address] PCP - General 06/18/23
--- OUTSIDE RECORDS SUMMARY | 2024-09-02 15:58 | XMS_ITS | Clinical Summary ---
Author Organization [facility] Address [address] [place] [address] Phone Care Team Providers Care Blacksmith Assistant Name Role Phone Lyla Escalante MD Primary Care Pr ovider Allergies Active Allergy Reactions Criticality Noted Date Comments Droperidol 07/23/2022 Fentanyl GI intolerance,Nause a And Vomiting 09/12/2023 Nasuea and vomiting Nasuea and vomiting Metformin 05/22/2016 Did not tolerate GI side effects Medications venlafaxine XR (EFFEXOR-XR) 150 mg 24 hr [...] within 15 minutes of a meal Active Fiasp FlexTouch U-100 Insulin 100 unit/mL (3 mL) injection pen INJECT 16-20 UNITS SUBCUTANEOUSLY 3 TIMES DAILY BEFORE MEALS X30 DAYS DIRECTED Active ferrous sulfate 324 mg (65 mg elemental iron) EC tablet Take 1 tablet (324 mg total) by mouth 1 (one) time each day with breakfast. Do not crush, chew, or split. 90 tablet 1 024 Active lamoTRIgine (LaMICtal) 100 mg tablet Take [...] mg total) by mouth at bedtime. Active clotrimazole-be tamethasone (LOTRISONE) 1-0.05 % creamIndication s:Intertrigo Apply topically 2 (two) times a day. 15 g 1 Active busPIRone (BUSPAR) 15 mg tabletIndicatio ns:Anxiety and depression Take 1 tablet (15 mg total) by mouth 2 (two) times a day. Active cyclobenzaprine (FLEXERIL) 5 mg tabletIndicatio ns:Muscle spasm of both lower legs TAKE 1 TABLET BY MOUTH AT BEDTIME NEEDED FOR MUSCLE SPASMS. 30 tablet 1 Active docusate sodium (Colace) 100 mg capsuleIndicati ons:Other iron deficiency anemia Take 1 capsule (100 mg total) by mouth 1 (one) time each day. 90 each 2024 Active losartan (Cozaar) 50 mg tabletIndicatio ns:Primary hypertension Take 1 tablet (50 mg total) by mouth 1 (one) time each day. 90 each 2024 Active atorvastatin (LIPITOR) 80 mg tabletIndicatio ns:Mixed hyperlipidemia, Oswald oswald disease Take 1 tablet (80 mg total) by mouth 1 (one) time each day. 90 tablet 1 Active aspirin 81 mg EC tabletIndicatio ns:Oswald oswald disease Take 1 tablet (81 mg total) by mouth 1 (one) time each day. 90 each 1 025 2024 Active albuterol HFA (ProAir HFA) 90 mcg/actuation inhalerIndicati ons:Mild persistent asthma without complication Inhale 2 puffs by mouth every 4 (four) hours if needed for wheezing or shortness of breath. 18 g 1 025 2025 Active budesonide (PULMICORT) 90 mcg/actuation inhalerIndicati ons:Mild persistent asthma without complication Inhale 1 puff by mouth 2 (two) times a day. Rinse mouth with water after use to reduce aftertaste and incidence of candidiasis. Do not swallow. 1 each 1 025 2025 Active gabapentin (NEURONTIN) 600 mg tablet Take 1 tablet (600 mg total) by mouth 4 (four) times a day. 360 each 025 2024 Active gabapentin (NEURONTIN) 600 mg tablet Take 1 tablet (600 mg total) by mouth 3 (three) times a day. 2024 Discontinued(R eorder) aspirin 81 mg EC tablet Take 1 tablet (81 mg total) by mouth. 024 2024 Discontinued(R eorder) atorvastatin (LIPITOR) 80 mg tablet TAKE 1 TABLET BY MOUTH EVERY DAY 90 tablet 1 024 2024 Discontinued(R eorder) docusate sodium (Colace) 100 mg capsuleIndicati ons:Other iron deficiency anemia Take 1 capsule (100 mg total) by mouth 1 (one) time each day. 90 each 1 024 2024 Discontinued(R eorder) cyclobenzaprine (FLEXERIL) 5 mg tabletIndicatio ns:Muscle spasm of both lower legs Take 1 tablet (5 mg total) by mouth at bedtime as needed for muscle spasms. 30 tablet 1 024 2024 Discontinued losartan (Cozaar) 50 mg tablet Take 1 tablet (50 mg total) by mouth 1 (one) time each day. 90 each 1 024 2024 Discontinued(R eorder) albuterol HFA (ProAir HFA) 90 mcg/actuation inhalerIndicati ons:Mild persistent asthma without complication Inhale 2 puffs by mouth every 4 (four) hours if needed for wheezing or shortness of breath. 18 g 1 024 2024 Discontinued(R eorder) budesonide (PULMICORT) 90 mcg/actuation inhalerIndicati ons:Mild persistent asthma without complication Inhale 1 puff by mouth 2 (two) times a day. Rinse mouth with water after use to reduce aftertaste and incidence of candidiasis. Do not swallow. 1 each 1 024 2024 Discontinued(R eorder) naproxen (NAPROSYN) 500 mg tablet TAKE 1 TABLET BY MOUTH TWICE A DAY NEEDED FOR PAIN 180 tablet 1 025 2024 Discontinued(T herapy completed) Active Problems Problem Noted Date Diagnosed Date Plantar fasciitis of right foot 08/17/2024 Assessment & Plan (08/17/2024 4:58 PM EDT): Requesting referral to podiatry for neuropathy and plantar fascitis. Referral placed Orders: Ambulatory referral to Podiatry; Future Asthma 04/15/2024 Assessment & Plan (08/17/2024 4:58 PM EDT): Resume pulmicort and albuterol PRN Orders: albuterol HFA (ProAir HFA) 90 mcg/actuation inhaler; Inhale 2 puffs by mouth every 4 (four) hours if needed for wheezing or shortness of breath. budesonide (PULMICORT) 90 mcg/actuation inhaler; Inhale 1 puff by mouth 2 (two) times a day. Rinse mouth with water after use to reduce aftertaste and incidence of candidiasis. Do not swallow. Assessment & Plan (04/15/2024 4:29 PM EST): [...] Iron deficiency anemia 09/12/2023 Assessment & Plan (08/17/2024 4:58 PM EDT): Continue ferrous sulfate and colace She will complete pending labs Orders: docusate sodium (Colace) 100 mg capsule; Take 1 capsule (100 mg total) by mouth 1 (one) time each day. 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 ([facility] V24, [facility] V28) 12/25/2021 Assessment & Plan (04/15/2024 4:29 PM EST): Overdue for eye exam and was referred for this Orders: Ambulatory referral to Ophthalmology; Future Hemiparesis due to old cereb ral infarction ([facility] V24, [facility] V28) 07/14/2021 Overview (04/15/2024): Left hand weakness Carotid stenosis, right 08/02/2020 Overview (04/15/2024): [facility] 07/19/2020 moderate focal stenosis prox R ICA, diffusely diminutive caliber R ICA distal to stenosis DM (diabetes mellitus), type 2 with peripheral vascular complications ([facility] V24, [facility] V28) 08/02/2020 Hypertension 04/13/2020 Assessment & Plan (08/17/2024 4:58 PM EDT): Continue losartan Orders: losartan (Cozaar) 50 mg tablet; Take 1 tablet (50 mg total) by mouth 1 (one) time each day. 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 aspirin 81 mg EC tablet; Take 1 tablet (81 mg total) by mouth 1 (one) time each day. Anxiety and depression 07/16/2018 Assessment & Plan (08/17/2024 4:58 PM EDT): Continue buspirone 15mg BID, lamotrigine 50mg BID, venlafaxine 150mg daily, hydroxyzine 25mg PRN, topiramate 100mg nightly. Follows with Arti Hudson at [facility] in [place] . Has therapist and gets therapy weekly. Assessment & Plan (04/15/2024 4:29 PM EST): Stable Continue buspirone 15mg BID, lamotrigine 50mg BID, venlafaxine 150mg daily, hydroxyzine 25mg PRN, topiramate 100mg nightly. Follows with Arti Hudson at [facility] in [place] . Continue therapy weekly. Hyperlipidemia 07/16/2018 Assessment & Plan (08/17/2024 4:58 PM EDT): Last LDL 114 in April 2023. Continue Lipitor 80mg daily. She will return for fasting lipids next month Orders: atorvastatin (LIPITOR) 80 mg tablet; Take 1 tablet (80 mg total) by mouth 1 (one) time each day. Assessment & Plan (04/15/2024 4:29 PM EST): Continue lipitor 80mg daily Orders: Hepatic function panel; Future Lipid panel with reflex to direct LDL; Future Peripheral polyneuropathy 01/16/2017 Assessment & Plan (08/17/2024 4:58 PM EDT): Requesting referral to podiatry for neuropathy and plantar fascitis. Referral placed Orders: Ambulatory referral to Podiatry; Future DM (diabetes mellitus), type 2 with neurological complications ([facility] V24, [facility] V28) 08/14/2016 Overview (04/15/2024): Patient is seen at [facility] endocrinology group Assessment & Plan (08/17/2024 4:58 PM EDT): She will return on 08/27/24 for blood work ordered in March She will continue follow up with Dr. Hernandez in Endocrinlogy at [facility]. Continue insulin Tresiba and insulin sliding scale. Continue gabapentin 600mg QID for neuropathy. She is still waiting on insulin pump due to insurance delays Provided with number for [facility] to make an appointment. Referral was placed in March Assessment & Plan (04/15/2024 4:29 PM EST): Last A1c was in December was 10.6 She will continue follow-up with her trim line worker at [facility] as well as her insulin regimen. Reports that the plan is for her to be placed on an insulin pump next year. Continue gabapentin 600mg QID for neuropathy. Orders: Hemoglobin A1c; Future Severe obesity with body mas s index (BMI) of 35.0 to 39.9 with serious comorbidity ([facility] V24, [facility] V28) 05/03/2014 Assessment & Plan (04/15/2024 4:29 PM EST): Resolved Problems Problem Noted Date Diagnosed Date Resolved Date Cannabinoid hyperemesis syndrome 07/14/2021 04/15/2024 Encounters Date Type Department Care Team Description 08/17/2024 3:30 PM EDT Telemedicine Adult Medicine [address] [phone] Lyla Escalante MD DM (diabetes mellitus), type 2 with neurological complications ([facility] V24, [facility] V28) (Primary Dx); Other iron deficiency anemia; Mild persistent asthma without complication; Mixed hyperlipidemia; Primary hypertension; Oswald oswald disease; Plantar fasciitis of right foot; Peripheral polyneuropathy; Anxiety and depression; Lump of skin of back 08/17/2024 Telephone Adult Medicine [address] [phone] Lyla Escalante MD telehealth visit 07/13/2024 Telephone Adult Medicine [address] [phone] Lyla Escalante MD Forms/questionnaires from Last 3 [...] 2 with peripheral vascular complications (CMS/HCC V24, CMS/HCC V28) 08/02/2020 DX:DM (diabetes mellitus), type 2 with peripheral vascular complications (HCC) DM (diabetes mellitus), type 2 with neurological complications (CMS/HCC V24, CMS/HCC V28) 08/14/2016 DX:DM (diabetes mellitus), t ype 2 with neurological complications (HCC); COMMENT: Patient is seen at [facility] endocrinology group 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 (CMS/HCC V24, CMS/HCC V28) 03/05/2022 DX:DM type 2 causing eye [...] Alive Healthy Paternal Grandfather DM Paternal Grandmother Cindy garcia [place] Social History Tobacco Use Types Packs/Day [...] for your loved ones. For example, rn maternal child or elderly care for an older [...] Care Team (Late st Contact Info) Description 09/14/2024 3:15 PM EDT Office Visit [facility] Hematology Oncology [address] [place] [id number] Alexandra Rodriguez PA [address] [place] [address] Health Maintenance Due Date Last Done Comments [...] on patient's age to complete this topic Procedures Procedure Name Priority Date/Time Associated Diagnosis Comments ABDOMINAL ULTRASOUND Routine 09/01/2024 10:56 AM EDT from Last 3 Months Results * Abdominal Ultrasound (09/01/2024 10:56 AM EDT) us Historical Provider IN CLINIC/BEDSIDE ORDERAB LES Final Result from Last 3 Months Insurance MEDICAID - [place] [employer] MEDICARE ADVANTAGE Care Teams Blacksmith Assistant Relationship Specialty Start Date End Date Lyla Escalante MD [address] [place] [phone] PCP - General Internal Medicine 12/18/23
--- OUTSIDE RECORDS SUMMARY | 2024-09-02 15:58 | XMS_ITS | Encounter Summary ---
Author Organization [facility] Address [address] [place] [address] Care Team Providers Care Burr Picker Name Role Phone Lyla Escalante MD Primary Care Pr ovider Encounter Details Date Type Department Care Team ([facility] st Contact Info) Description 04/20/2024 Community Care Management [place] [facility] [address] [place] [phone] Kat Almanzar Social History Tobacco [...] care for your loved ones. For example, early childhood aide classroom or elderly care for an older adult? [...] Description 09/14/2024 3:15 PM EDT Office Visit [facility] Hematology Oncology [address] [place] [phone] Alexandra Rodriguez PA [address] [place] [address] documented as of this encounter Visit Diagnoses Not on filedocumented in this encounter Additional Health Concerns Assessment Noted Time PHQ-9 Depression Total Score: 8 04/15/20 24 2:00 PM EST documented as of this encounter Care Teams Burr Picker Relationship Specialty Start Date End Date Lyla Escalante MD [address] [place] [id number] PCP - General Internal Medicine 12/18/23 documented as of this encounter
[2024-09-02 18:52] LABS: Creatinine Urine 72.89 mg/dL
[2024-09-02 19:35] LABS: Total Protein Urine Random 235 mg/dL (<12)
[2024-09-06 17:18] LABS: Catecholamine Frac, Total <249 pg/mL
== END 2024-09-02 14:52 | disposition home or self-care (01) ==
LOC: HO.WFDLDS 14:51
PROVIDERS: Referring Provider Internal Medicine Hypertension Specialist; Visit Provider Nurse Practitioner Adult Health
DX: D35.00 Benign neoplasm of unspecified adrenal gland (principal); R80.9 Proteinuria, unspecified
CPT/HCPCS: 36415; 82384; 82570; 84156

== ENCOUNTER 2024-09-07 13:55 | Outpatient (AMB) | payer MEDICARE, MEDICAID, SELFPAY ==
--- NOTE | 2024-09-07 14:03 | HO.NEPHOV_ITS ---
Vital Signs 09/07/24 14:04 Height 5 ft 4 in BP 130/68 Blood Pressure Location Rt brachial Position Sitting Pulse 100 Pulse Source Pulse Oximeter Pulse Oximetry (%) 98 Oxygen Delivery Method Room Air Intake Visit Reasons: Adrenal adenoma/LVM Quality Review Trainer Required: No Accompanied by: Daughter Allergies metformin Allergy (Unknown, Verified 09/07/24 14:05) dizziness fentanyl Adverse Reaction (Unknown, Verified 09/07/24 14:05) Vomiting Medication List - Last Reconciled 09/07/24 by Vega Guardado MD acetone (urine) test (Ketone Urine Test strips) As directed prn glucose over 300, illness, nausea, vomiting tid prn albuterol sulfate 90 mcg/actuation inhalation aspirin 81 mg PO DAILY atorvastatin 80 mg PO BEDTIME blood sugar diagnostic (groopifyuch Verio test strips) As directed three times a day blood-glucose meter (Lehigh TechnologiesTouch Verio Flex Meter) As directed four times a day blood-glucose sensor (HiMom G7 Sensor device) As directed every 10 days buspirone 15 mg PO BID cyclobenzaprine 5 mg PO BEDTIME PRN ferrous sulfate 325 mg PO DAILY Fiasp FlexTouch U-100 Insulin 100 unit/mL (3 mL) (insulin aspart (niacinamide)) 16-20 units tid before meals subcutaneously use as directed; 30 days NS flash glucose scanning reader (FreeStyle Vilma 2 [place]) As directed flash glucose sensor (FreeStyle Vilma 2 Sensor kit) As directed - scan four or more times a day flash glucose sensor (FreeStyle Vilma 2 Sensor kit) As directed change every 14 days fluticasone propionate 220 mcg/actuation 2 puffs PO BID gabapentin 600 mg PO QID PRN glucagon (Gvoke HypoPen 1-Pack) 1 mg (0.2 mL) subcut ONCE hydroxyzine HCl 50 mg PO QID insulin degludec (Tresiba FlexTouch U-200 insulin) 120 units (0.6 mL) subcut BEDTIME 30 days ketone blood test As directed lamotrigine 50 mg PO BID lancets (OneTouch Delica Plus Lancet) As directed four times a day losartan 50 mg PO DAILY Novolog FlexPen U-100 Insulin (insulin aspart U-100) 14 units (0.14 mL) subcut TID 30 days NS ondansetron HCl 4 mg PO Q8H PRN pen needle, diabetic As directed pen needle, diabetic As directed 4 times a day pioglitazone (Actos) 15 mg PO DAILY 30 days topiramate 100 mg PO DAILY venlafaxine ER 150 mg PO DAILY HPI Comments Details: . Naila is a pleasant middle-aged woman with a history of longstanding diabetes mellitus type 2 complicated by retinopathy microalbuminuria and neuropathy. 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 She also has hypertension along with hyperlipidemia. She has been referred for further evaluation of proteinuria. Recent urine studies showed about 1.5 g of proteinuria. She was found to have an adrenal adenoma and she has undergone endocrine evaluation and this is deemed to be an incidentaloma. 03/21/2024. Did not undergo any lab work. 05/18/24 ;Doing ok ;Blood sugar is elevated 09/07/24 Here for follow up : No urinary symptoms Endocrine work up has been negative thus far [facility] Medical History Adrenal adenoma Hypertension Obesity due to excess calories Agoraphobia Stroke Asthma Peripheral neuropathy Depression Anxiety Class 1 obesity due to excess calories in adult Hyperlipidemia LDL goal <70 Type 2 diabetes mellitus with diabetic polyneuropathy Surgical History History of surgery Family History Mother Diabetes Father Diabetes Brother Hypertension Daughter Hypertension Social History Household Members: Children Alcohol intake: former Patient Tobacco Use Status: Current everyday Tobacco user Tobacco use type: Cigarette Cigarette Packs Per Day: 1 Cigarettes Per Day: 20.0 Substance Use Type: Marijuana Current occupational status: unemployed Physical Exam Vital Signs: Last Vital Signs Pulse 100 09/07/24 14:04 BP 130/68 09/07/24 14:04 Pulse Ox 98 09/07/24 14:04 Oxygen Delivery Method Room Air 09/07/24 14:04 Comfortable Neck supple no JVD. Lungs entry equal no rales. Heart S1-S2 heard no gallop or rub. Abdomen soft nontender. Neuro alert awake oriented. No asterixis. Extremities no edema. Results Reviewed Nephrology Results: Urine Creatinine 72.89 mg/dL 09/02/24 Assessment & Plan Assessment & Plan (1) Type 2 diabetes mellitus with diabetic polyneuropathy: Code(s): E11.42 - Type 2 diabetes mellitus with diabetic polyneuropathy Category: Medical Qualifiers: Diabetes mellitus correction insulin use: with long term care social worker use Qualified Code(s): E11.42 - Type 2 diabetes mellitus with diabetic polyneuropathy; Z79.4 - terminal gauger supervisor (current) use of insulin (2) Adrenal adenoma: Comment: Most likely an incidentaloma Code(s): D35.00 - Benign neoplasm of unspecified adrenal gland Category: Medical Plan: Endocrine work up has been negative thus far Shall follow PRN (3) Hypertension: Code(s): I10 - Essential (primary) hypertension Category: Medical (4) PAD (peripheral artery disease): Comment: 04/11/2022 atherectomy and plasty of right SFA Code(s): I73.9 - Peripheral vascular disease, unspecified Category: Medical (5) Proteinuria: Code(s): R80.9 - Proteinuria, unspecified Category: Medical Plan . Middle-aged woman with longstanding diabetes mellitus with proteinuria. Renal function is normal at baseline with a baseline creatinine of 0.9 mg/dL. Proteinuria is most likely due to underlying diabetic nephropathy. Goal is to slow the progression of renal disease. I would maximize the HUONG inhibition. Since creatiien has bumped to 1.2, i have not increase HUONG inhibition Maintain blood pressure less than 130/80. She is not on any SGLT2 inhibitors due to history of DKA. Encouraged her to stay on low-sodium diet Increase p.o. fluid intake Continue to optimize blood sugar. Await pump Orders: Orders Basic Metabolic Panel Today I10 - Essential (primary) hypertension Coding Level of Care Code Est Pt Level 4 (02524) Diagnoses Type 2 diabetes mellitus with diabetic polyneuropathy, with long-term current use of insulin E11.42; Z79.4 Diabetes mellitus correction insulin use: with long term care social worker use Adrenal adenoma D35.00 Hypertension I10 PAD (peripheral artery disease) I73.9 Proteinuria R80.9
[2024-09-07 14:04] VITALS: BP 130/68; PULSE 100; O2SAT 98
--- OUTSIDE RECORDS SUMMARY | 2024-09-07 14:13 | XMS_ITS ---
Author Organization [facility] Address [address] [place] [address] Phone Care Team Providers Care Refining Engineer Name Role Phone Lyla Escalante MD Primary [...]
--- OUTSIDE RECORDS SUMMARY | 2024-09-07 14:13 | XMS_ITS | Clinical Summary ---
Author Organization [facility] Address [address] [place] [address] Phone Care Team Providers Care Efficiency Expert Name Role Phone Lyla Escalante MD Primary [...] split. 90 tablet 1 03/16/20 24 Active lamoTRIgine (LaMICtal) 100 mg tablet Take 0.5 tablets (50 mg total) by mouth 2 (two) times a day. Take 1 tablet (100 mg total) by mouth daily. 04/15/20 Active hydrOXYzine HCL (ATARAX) 25 mg tabletIndication s:Anxiety and depression Take 1 tablet (25 mg total) by mouth 4 (four) times a day. 04/15/20 Active topiramate (TOPAMAX) 100 mg tabletIndication s:Anxiety and depression Take 1 tablet (100 mg total) by mouth at bedtime. 04/15/20 Active clotrimazole-bet amethasone (LOTRISONE) 1-0.05 % creamIndications :Intertrigo Apply topically 2 (two) times a day. 15 g 1 04/15/20 Active busPIRone (BUSPAR) 15 mg tabletIndication s:Anxiety and depression Take 1 tablet (15 mg total) by mouth 2 (two) times a day. 04/15/20 Active cyclobenzaprine (FLEXERIL) 5 mg tabletIndication s:Muscle spasm of both lower legs TAKE 1 TABLET BY MOUTH AT BEDTIME NEEDED FOR MUSCLE SPASMS. 30 tablet 1 08/07/19 Active docusate sodium (Colace) 100 mg capsuleIndicatio ns:Other iron deficiency anemia Take 1 capsule (100 mg total) by mouth 1 (one) time each day. 90 each 1 08/18/19 25 025 Active losartan (Cozaar) 50 mg tabletIndication s:Primary hypertension Take 1 tablet (50 mg total) by mouth 1 (one) time each day. 90 each 08/18/19 25 025 Active atorvastatin (LIPITOR) 80 mg tabletIndication s:Mixed hyperlipidemia,M oya oswald disease Take 1 tablet (80 mg total) by mouth 1 (one) time each day. 90 tablet 1 08/18/19 25 Active aspirin 81 mg EC tabletIndication s:Oswald osawld disease Take 1 tablet (81 mg total) by mouth 1 (one) time each day. 90 each 08/18/19 25 025 Active albuterol HFA (ProAir HFA) 90 mcg/actuation inhalerIndicatio ns:Mild persistent asthma without complication Inhale 2 puffs by mouth every 4 (four) hours if needed for wheezing or shortness of breath. 18 g 1 08/18/19 25 026 Active budesonide (PULMICORT) 90 mcg/actuation inhalerIndicatio ns:Mild persistent asthma without complication Inhale 1 puff by mouth 2 (two) times a day. Rinse mouth with water after use to reduce aftertaste and incidence of candidiasis. Do not swallow. 1 each 1 08/18/19 25 026 Active gabapentin (NEURONTIN) 600 mg tablet Take 1 tablet (600 mg total) by mouth 4 (four) times a day. 360 each 08/18/19 25 025 Active gabapentin (NEURONTIN) 600 mg tablet Take 1 tablet (600 mg total) by mouth 3 (three) times a day. 025 Discontin ued(Reord er) aspirin 81 mg EC tablet Take 1 tablet (81 mg total) by mouth. 09/12/19 24 025 Discontin ued(Reord er) atorvastatin (LIPITOR) 80 mg tablet TAKE 1 TABLET BY MOUTH EVERY DAY 90 tablet 1 04/02/20 24 025 Discontin ued(Reord er) docusate sodium (Colace) 100 mg capsuleIndicatio ns:Other iron deficiency anemia Take 1 capsule (100 mg total) by mouth 1 (one) time each day. 90 each 1 04/15/20 24 025 Discontin ued(Reord er) losartan (Cozaar) 50 mg tablet Take 1 tablet (50 mg total) by mouth 1 (one) time each day. 90 each 1 04/15/20 24 025 Discontin ued(Reord er) albuterol HFA (ProAir HFA) 90 mcg/actuation inhalerIndicatio ns:Mild persistent asthma without complication Inhale 2 puffs by mouth every 4 (four) hours if needed for wheezing or shortness of breath. 18 g 1 04/15/20 24 025 Discontin ued(Reord er) budesonide (PULMICORT) 90 mcg/actuation inhalerIndicatio ns:Mild persistent asthma without complication Inhale 1 puff by mouth 2 (two) times a day. Rinse mouth with water after use to reduce aftertaste and incidence of candidiasis. Do not swallow. 1 each 1 04/15/20 24 025 Discontin ued(Reord er) naproxen (NAPROSYN) 500 mg tablet TAKE 1 TABLET BY MOUTH TWICE A DAY NEEDED FOR PAIN 180 tablet 1 05/11/19 25 025 Discontin ued(Thera py completed ) Active Problems Problem Noted Date Diagnosed Date [...] quit DM type 2 causing eye disease ([facility] V24, [facility] V28) 03/05/2022 Non-proliferative diabetic r etinopathy, left eye ([facility] V24, [facility] V28) 12/25/2021 Assessment & Plan (04/15/2024 4:29 PM EST): Overdue for eye exam and was referred for this Orders: Ambulatory referral to Ophthalmology; Future 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 ([facility] V24, [facility] V28) 12/25/2021 Assessment & Plan (04/15/2024 4:29 PM EST): Overdue for eye exam and was referred for this Orders: Ambulatory referral to Ophthalmology; Future Hemiparesis due to old cereb ral infarction ([facility] V24, [facility] V28) 07/14/2021 Overview (04/15/2024): Left hand weakness Carotid stenosis, right 08/02/2020 Overview (04/15/2024): [facility] 07/19/2020 moderate focal stenosis prox R ICA, diffusely diminutive caliber R ICA distal to stenosis DM (diabetes mellitus), type 2 with peripheral vascular complications (CMS/HCC V24, CMS/HCC V28) 08/02/2020 Hypertension 04/13/2020 Assessment & Plan [...] 100mg nightly. Follows with Arti Hudson at [facility] in [place] . Has therapist and gets therapy weekly. Assessment & Plan (04/15/2024 4:29 PM EST): Stable Continue buspirone 15mg BID, lamotrigine 50mg BID, venlafaxine 150mg daily, hydroxyzine 25mg PRN, topiramate 100mg nightly. Follows with Arti Hudson at [facility] in [place] . Continue therapy weekly. Hyperlipidemia 07/16/2018 Assessment [...] (diabetes mellitus), type 2 with neurological complications ([facility] V24, [facility] V28) 08/14/2016 Overview (04/15/2024): Patient is seen at [facility] endocrinology group Assessment & Plan (08/17/2024 4:58 PM EDT): She will return on 08/27/24 for blood work ordered in March She will continue follow up with Dr. Hernandez in Endocrinlogy at [facility]. Continue insulin Tresiba and insulin sliding scale. Continue gabapentin 600mg QID for neuropathy. She is still waiting on insulin pump due to insurance delays Provided with number for [facility] to make an appointment. Referral was placed in March Assessment & Plan (04/15/2024 4:29 PM EST): Last A1c was in December was 10.6 She will continue follow-up with her audit control clerk at [facility] as well as her insulin regimen. Reports that the plan is for her to be placed on an insulin pump next year. Continue gabapentin 600mg QID for neuropathy. Orders: Hemoglobin A1c; Future Severe obesity with body mas s index (BMI) of 35.0 to 39.9 with serious comorbidity ([facility] V24, [facility] V28) 05/03/2014 Assessment & Plan (04/15/2024 4:29 PM EST): Resolved Problems Problem Noted Date Diagnosed Date Resolved Date Cannabinoid hyperemesis syndrome 07/14/2021 04/15/2024 Encounters Date Type Department Care Team Description 08/17/2024 3:30 PM EDT Telemedicine Adult Medicine [address] [phone] Lyla Escalante MD DM (diabetes mellitus), type 2 with neurological complications (CMS/HCC V24, CMS/HCC V28) (Primary Dx); Other iron deficiency anemia; Mild persistent asthma without complication; Mixed hyperlipidemia; Primary hypertension; Oswald oswald disease; Plantar fasciitis of right foot; Peripheral polyneuropathy; Anxiety and depression; Lump of skin of back 08/17/2024 Telephone Adult Medicine [address] [phone] Lyla Escalante MD telehealth visit 07/13/2024 Telephone Adult Medicine [address] [phone] Lyla Escalante MD Forms/questionnaires from Last 3 [...] mellitus), type 2 with peripheral vascular complications ([facility] V24, [facility] V28) 08/02/2020 DX:DM (diabetes mellitus), type 2 with peripheral vascular complications (HCC) DM (diabetes mellitus), type 2 with neurological complications (CMS/HCC V24, [facility] V28) 08/14/2016 DX:DM (diabetes mellitus), t ype 2 with neurological complications (HCC); COMMENT: Patient is seen at [facility] endocrinology group 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 ([facility] V24, [facility] V28) 03/05/2022 DX:DM type 2 causing eye di sease (HCC) History of cerebral embolic infarction 08/11/2019 DX:History of cerebral embol ic infarction; COMMENT: June 2019 Hemiparesis due to old cereb ral infarction (CMS/HCC V24, [facility] V28) 07/14/2021 DX:Hemiparesis d ue to old cerebral infarction (HCC) Severe obesity with body mas s index (BMI) of 35.0 to 39.9 with serious comorbidity (CMS/HCC V24, [facility] V28) 05/03/2014 DX:Severe obesity with body mass [...] care for your loved ones. For example, childcare worker or elderly care for an older adult? [...] Description 09/14/2024 3:15 PM EDT Office Visit [facility] Hematology Oncology [address] [place] [phone] Alexandra Rodriguez PA [address] [place] [address] Health Maintenance Due Date Last Done Comments [...] * Abdominal Ultrasound (09/01/2024 10:56 AM EDT) Historical Provider IN CLINIC/BEDSIDE ORDERAB LES Final Result from Last 3 Months Insurance MEDICAID - [place] [employer] MEDICARE ADVANTAGE Care Teams Efficiency Expert Relationship Specialty Start Date End Date Lyla Escalante MD [address] [place] [phone] PCP - General Internal Medicine 12/18/23
--- OUTSIDE RECORDS SUMMARY | 2024-09-07 14:13 | XMS_ITS | Encounter Summary ---
Author Organization [facility] Address [address] [place] [address] Care Team Providers Care Cycle Touring Guide Name Role Phone Lyla Escalante MD Primary Care Pr ovider Encounter Details Date Type Department Care Team ([facility] st Contact Info) Description 04/20/2024 Community Care Management [place] [facility] [address] [place] [address] Kat Almanzar Social History Tobacco [...] care for your loved ones. For example, children's zoo caretaker or elderly care for an older adult? [...] Description 09/14/2024 3:15 PM EDT Office Visit [facility] Hematology Oncology [address] [place] [phone] Alexandra Rodriguez PA [address] [place] [address] documented as of this encounter Visit Diagnoses Not on filedocumented in this encounter Additional Health Concerns Assessment Noted Time PHQ-9 Depression Total Score: 8 04/15/20 24 2:00 PM EST documented as of this encounter Care Teams Cycle Touring Guide Relationship Specialty Start Date End Date Lyla Escalante MD [address] [place] [phone] PCP - General Internal Medicine 12/18/23 documented as of this encounter
--- OUTSIDE RECORDS SUMMARY | 2024-09-07 14:13 | XMS_ITS | Clinical Summary ---
Author Organization [facility] Address [address] [place] [address] Care Team Providers Care Director Park Name Role Phone Lyla Escalante MD Primary [...] age to complete this topic Care Teams Director Park Relationship Specialty Start Date End Date Lyla Escalante MD [address] [place] [address] PCP - General 06/18/23
== END 2024-09-07 14:22 | disposition home or self-care (01) ==
LOC: HO.HKA 13:56
PROVIDERS: PCP Family Medicine; Visit Provider Internal Medicine Hypertension Specialist
DX: E11.42 Type 2 diabetes mellitus with diabetic polyneuropathy (principal); Z79.4 Long term (current) use of insulin; D35.00 Benign neoplasm of unspecified adrenal gland; I10 Essential (primary) hypertension; I73.9 Peripheral vascular disease, unspecified; R80.9 Proteinuria, unspecified
CPT/HCPCS: 99214

== ENCOUNTER → 2024-09-07 13:55 | Outpatient (BNVA) | payer MEDICARE, MEDICAID, SELFPAY | PROVIDERS: PCP Family Medicine; Visit Provider Internal Medicine Hypertension Specialist | DX: E11.42 Type 2 diabetes mellitus with diabetic polyneuropathy (principal); D35.00 Benign neoplasm of unspecified adrenal gland; I10 Essential (primary) hypertension; I73.9 Peripheral vascular disease, unspecified; R80.9 Proteinuria, unspecified; Z79.4 Long term (current) use of insulin | CPT/HCPCS: 99212 ==

== ENCOUNTER 2024-09-22 15:16 | Outpatient (AMB) | payer MEDICARE, MEDICAID, SELFPAY ==
--- NOTE | 2024-09-22 15:17 | A.OFFVIS_ITS ---
Vital Signs 09/22/24 15:18 Height 5 ft 4 in Intake Visit Reasons: Follow up arterial US Intake Note: 1 yr follow up Arterial US 08/10/24, Right LE pain, cramping and weakness worse than Left leg. Can walk 10 ft. Video Production Coordinator Required: No Accompanied by: daughter/REMOTELY PILOTED VEHICLE CONTROLLER Allergies metformin Allergy (Unknown, Verified 09/22/24 15:21) dizziness fentanyl Adverse Reaction (Unknown, Verified 09/22/24 15:21) Vomiting HPI HPI Follow up arterial US: Details: The patient is a 44-year-old female presenting for arterial follow-up with concerns about peripheral circulation and associated symptoms. Her primary issue is significant mobility limitation due to leg weakness, manifesting after walking approximately 10 feet, leading her to rely on physical supports. This limitation in functional status and physical activity has been persistent given her residential layout. Additionally, the patient is managing Diabetes Mellitus and plans to start using an insulin pump soon. She continues follow-up with her ethnology professor for renal impairment after a lesion was noted two years prior. Her condition necessitates iron transfusions due to anemia, compounded by leukocytosis that has prompted a revision in her medication usage. In addition she is receiving iron infusions. She now presents to us for arterial follow-up. [facility] Medical History Adrenal adenoma Hypertension Obesity due to excess calories Agoraphobia Stroke Asthma Peripheral neuropathy Depression Anxiety Class 1 obesity due to excess calories in adult Hyperlipidemia LDL goal <70 Type 2 diabetes mellitus with diabetic polyneuropathy Surgical History History of surgery Family History Mother Diabetes Father Diabetes Brother Hypertension Daughter Hypertension Social History Household Members: Children Alcohol intake: former Patient Tobacco Use Status: Current everyday Tobacco user Tobacco use type: Cigarette Cigarette Packs Per Day: 1 Cigarettes Per Day: 20.0 Substance Use Type: Marijuana Current occupational status: unemployed Review of Systems Const All systems reviewed & are unremarkable except as noted in HPI and below Reports no additional complaints ENT Reports Normal hearing present Card Denies chest pain, Denies chest pain at rest, Denies chest pain with activity and Denies pedal edema Resp Denies cough GI Denies abdominal pain Musc Denies abnormal gait, Denies muscle cramps and Denies radiating pain into limb Skin/Breast Denies skin ulcer and Denies wounds Neuro Reports Normal hearing present and Denies abnormal gait Psych Reports no additional complaints Physical Exam Const General: cooperative, healthy appearing and comfortable Orientation/consciousness: oriented to person, oriented to place and oriented to time HEENT Head: Yes normal to inspection Neck Neck: Yes normal visual inspection Carotids: no bruits Chest Chest palpation & inspection: normal inspection of the chest Resp Effort & Inspection: normal respiratory effort and able to speak in complete sentences Auscultation: clear to auscultation bilaterally, no crackles, no rales, no rhonchi and no wheezes Cardio Other: Bilateral DP signals Rate: regular rate Rhythm: regular rhythm Heart sounds: S1 normal heart sound present and S2 normal heart sound present Bruits: no carotid bruits GI Inspection: Yes normal to inspection Skin Wounds: no wounds Hair: normal Neuro General: oriented to person, oriented to place and oriented to time Cranial nerves: Yes CN's II-XII intact bilaterally and Yes Normal hearing present Cognition (Neuro): normal cognition Motor exam (neuro): 5/5 motor strength present throughout Extrem Other: venous exam: No significant superficial varicosities or spider telangiectasias, minimal edema General: No clubbing, No cyanosis and No edema Psych Appearance: grossly normal Mental Status: mental status grossly normal Speech and movement: Normal speech and movement present Assessment & Plan Assessment & Plan (1) PAD (peripheral artery disease): Comment: 04/11/2022 atherectomy and plasty of right SFA Code(s): I73.9 - Peripheral vascular disease, unspecified Category: Medical Plan: I discussed with the patient the current stable findings regarding her peripheral circulatory status, emphasizing that immediate intervention is unnecessary unless symptoms such as ulcers or wounds develop. We reviewed the rationale for delaying invasive treatment, based on her stable yet suboptimal blood flow results. I explained the conservative management approach and scheduled follow-up ultrasound plans. For her diabetes management, we discussed the benefits and process of transitioning to an insulin pump, expecting improved control of her blood sugar levels. Additionally, we reviewed her continuing renal care and anemia treatment strategy, noting recent improvements in her blood work. We agreed on maintaining communication with her escalator attendant, ethnology professor, and group contract analyst, integrating their insights into her care plan. In short patient has stable claudication. I did review the pathophysiology of peripheral vascular disease with the patient. In addition we did discuss routine conservative measures including a healthy diet and the importance of exercise and ambulation. We did discuss risk factor modification. The patient will continue to to follow-up with surveillance follow-up in approximately 1 year. Thank you for allowing us to participate in this patient's care. If there are any questions or concerns please do not hesitate to contact us. Orders: Orders US arterial duplex LE 1 Year I73.9 - Peripheral vascular disease, unspecified Coding Level of Care Code Est Pt Level 4 (44265) Diagnoses PAD (peripheral artery disease) I73.9
--- OUTSIDE RECORDS SUMMARY | 2024-09-22 15:18 | XMS_ITS ---
Author Organization [facility] Address [address] [place] [address] Phone Care Team Providers Care Residential Remodeling Subcontractor Name Role Phone Lyla Escalante MD Primary [...]
== END 2024-09-22 15:41 | disposition home or self-care (01) ==
LOC: HO.HVS 15:16
PROVIDERS: PCP Family Medicine; Visit Provider Surgery Vascular Surgery
DX: I73.9 Peripheral vascular disease, unspecified (principal)
CPT/HCPCS: 99214

== ENCOUNTER → 2024-09-22 15:16 | Outpatient (BNVA) | payer MEDICARE, MEDICAID, SELFPAY | PROVIDERS: PCP Family Medicine; Visit Provider Surgery Vascular Surgery | DX: I73.9 Peripheral vascular disease, unspecified (principal) | CPT/HCPCS: 99212 ==

== ENCOUNTER 2025-01-25 08:55 | Outpatient (AMB) | payer MEDICARE, MEDICAID, SELFPAY ==
--- OUTSIDE RECORDS SUMMARY | 2025-01-25 09:24 | XMS_ITS | Encounter Summary ---
Author Organization [facility] [place] [address] Care Team Providers Care Costume Specialist Name Role Phone Lyla Escalante MD Primary Care Pr ovider Encounter Details Date Type Department Care Team (Late st Contact Info) Description 04/20/2024 Community Care Management [place] [facility] [address] [place] [phone] Kat Almanzar Social History Tobacco Use [...] for your loved ones. 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 [...] Date Recorded What is your living situation? Unrecognized valu e 04/20/2024 Comments Unknown Sex and Gender Information Value Date Recorded Sex Assigned at Female 11/03/2024 1:00 PM EDT Legal Sex Female 6:05 PM EDT Gender Identity Female 11/03/2024 1:00 PM EDT Sexual Orientation Straight 11/03/2024 1: 00 PM EDT documented as of this encounter Plan of Treatment Upcoming Encounters Date Type Department Care Team (Late st Contact Info) Description 02/08/2025 11:00 AM EDT Ancillary Procedure [facility] [address] [facility] [address] [place] [phone] 03/08/2025 3:15 PM EST Office Visit [facility] - [place] [address] [phone] Zuhair Gan, DPM [address] [phone] 03/22/2025 2:00 PM EST Appointment Radiology Department [facility] [address] [place], [place] [phone] 03/22/2025 3:15 PM EST Office Visit [facility] Hematology Oncology [address] [place] [phone] Alexandra Rodriguez PA [address] [place] [address] 03/31/2025 12:30 PM EST Office Visit Adult Medicine [address] [phone] Lyla Escalante MD [address] [place] [address] documented as of this encounter Visit Diagnoses Not on filedocumented in this encounter Additional Health Concerns Assessment Noted Time PHQ-9 Depression Total Score: 8 04/15/20 2:00 PM EST documented as of this encounter Care Teams Costume Specialist Relationship Specialty Start Date End Date Lyla Escalante MD [address] [place] [address] PCP - General Internal Medicine 12/18/23 documented as of this encounter
--- OUTSIDE RECORDS SUMMARY | 2025-01-25 09:24 | XMS_ITS ---
Author Organization [facility] Address [address] [place] [address] Phone Care Team Providers Care Wire Brush Maker Name Role Phone Lyla Escalante MD Primary Care Pr ovider [facility] - Food Insecurity Status:Ongoing (Active) Start date:04/20/2024 Enrollment date:04/20/2024 Enrollment reason:Identified as high-risk Related social drivers of health:Food Risk Related program episode:Community Health Worker Program (Closed) Overview Community Health Worker Program - Food Insecurity Service Episode Case Team Name Relationship Phone Kat Almanzar(Responsible Staff) Community He alth Worker Continued Care and Services Coordination
--- OUTSIDE RECORDS SUMMARY | 2025-01-25 09:24 | XMS_ITS | Clinical Summary ---
Author Organization [facility] Address [address] [place] [address] Care Team Providers Care Rail Loader Name Role Phone Lyla Escalante MD Primary [...] 81 10/21/2023 2:45 PM EDT Temperature 36.6 C (97.9 F) 10/21/2023 2:45 PM EDT Respiratory Rate 18 10/21/2023 2:45 PM EDT [...] Cervical Cancer Screening (P ap Smear) 2001 DTap / Tdap / Td (2 - Td or Tdap) 05/03/2024 015 Influenza Vaccine (#1) 2024 RSV Ped < 20 months Aged Out No longe r eligible based on patient's age to complete this topic Care Teams Rail Loader Relationship Specialty Start Date End Date Lyla Escalante MD [address] [place] [address] PCP - General 06/18/23
--- OUTSIDE RECORDS SUMMARY | 2025-01-25 09:24 | XMS_ITS ---
Author Name [facility] Organization Unknown Care Team Organization Name Specialty Phone Email Start Date End [address] [facility] Anastasia Peralta Primary Care 03/06/2022 12/16/2023
--- OUTSIDE RECORDS SUMMARY | 2025-01-25 09:24 | XMS_ITS | Clinical Summary ---
Author Organization [facility] Address [address] [place] [address] Phone Care Team Providers Care Shoeshiner Name Role Phone Lyla Escalante MD Primary [...] DAILY BEFORE MEALS X30 DAYS DIRECTED Active lamoTRIgine (LaMICtal) 100 mg tablet Take 0.5 tablets (50 mg total) by mouth 2 (two) times a day. Take 1 tablet (100 mg total) by mouth daily. 04/15/20 24 Active hydrOXYzine HCL (ATARAX) 25 mg tabletIndications: Anxiety and depression Take 1 tablet (25 mg total) by mouth 4 (four) times a day. 04/15/20 Active topiramate (TOPAMAX) 100 mg tabletIndications: Anxiety and depression Take 1 tablet (100 mg total) by mouth at bedtime. 04/15/20 24 Active busPIRone (BUSPAR) 15 mg tabletIndications: Anxiety and depression Take 1 tablet (15 mg total) by mouth 2 (two) times a day. 04/15/20 24 Active docusate sodium (Colace) 100 mg capsuleIndications :Other iron deficiency anemia Take 1 capsule (100 mg total) by mouth 1 (one) time each day. 90 each 08/18/19 25 025 Active albuterol HFA (ProAir HFA) 90 mcg/actuation inhalerIndications :Mild persistent asthma without complication Inhale 2 puffs by mouth every 4 (four) hours if needed for wheezing or shortness of breath. 18 g 08/18/19 25 026 Active folic acid (FOLVITE) 1 mg tablet Take 1 tablet (1 mg total) by mouth 1 (one) time each day. 90 each 09/15/19 25 026 Active aspirin 81 mg EC tabletIndications: Oswald oswald disease Take 1 tablet (81 mg total) by mouth 1 (one) time each day. 90 each 1 11/24/19 25 026 Active atorvastatin (LIPITOR) 80 mg tabletIndications: Oswald oswald disease,Mixed hyperlipidemia Take 1 tablet (80 mg total) by mouth 1 (one) time each day. 90 tablet 1 11/24/19 25 Active budesonide (PULMICORT) 90 mcg/actuation inhalerIndications :Mild persistent asthma without complication Inhale 1 puff by mouth 2 (two) times a day. Rinse mouth with water after use to reduce aftertaste and incidence of candidiasis. Do not swallow. 1 each 11/24/19 25 026 Active gabapentin (NEURONTIN) 600 mg tabletIndications: DM (diabetes mellitus), type 2 with peripheral vascular complications (CMS/HCC V24, CMS/HCC V28),Peripheral polyneuropathy Take 1 tablet (600 mg total) by mouth 4 (four) times a day. 360 each 1 11/24/19 25 026 Active losartan (Cozaar) 50 mg tabletIndications: Primary hypertension Take 1 tablet (50 mg total) by mouth 1 (one) time each day. 90 each 1 11/24/19 25 026 Active cyclobenzaprine (FLEXERIL) 5 mg tabletIndications: Muscle spasm of both lower legs Take 1 tablet (5 mg total) by mouth at bedtime as needed for muscle spasms. 90 tablet 11/24/19 25 025 Active clotrimazole-betam ethasone (LOTRISONE) 1-0.05 % creamIndications:I ntertrigo Apply topically 2 (two) times a day. 15 g 5 12/24/19 Active Active Problems Problem Noted Date Diagnosed Date Muscle spasm of both lower legs 11/23/2024 Assessment & Plan (11/23/2024 5:57 PM EDT): We will continue Flexeril as needed. Orders: cyclobenzaprine (FLEXERIL) 5 mg tablet; Take 1 tablet (5 mg total) by mouth at bedtime as needed for muscle spasms. Lump of skin of back 11/23/2024 Assessment & Plan (11/23/2024 5:57 PM EDT): Ultrasound is ordered. See HPI. Orders: US Chest; Future Plantar fasciitis of right foot 08/17/2024 Assessment & Plan (08/17/2024 4:58 PM EDT): Requesting referral to podiatry for neuropathy and plantar fascitis. Referral placed Orders: Ambulatory referral to Podiatry; Future Asthma 04/15/2024 Assessment & Plan (11/23/2024 5:57 PM EDT): Continue Pulmicort twice daily and albuterol as needed Orders: budesonide (PULMICORT) 90 mcg/actuation inhaler; Inhale 1 puff by mouth 2 (two) times a day. Rinse mouth with water after use to reduce aftertaste and incidence of candidiasis. Do not swallow. Assessment & Plan (08/17/2024 4:58 PM EDT): [...] Iron deficiency anemia 09/12/2023 Assessment & Plan (11/23/2024 5:57 PM EDT): Continue hematology follow-up and iron infusions Assessment & Plan (08/17/2024 4:58 PM EDT): [...] quit DM type 2 causing eye disease ([facility] V24, [facility] V28) 03/05/2022 Non-proliferative diabetic r etinopathy, left eye ([facility] V24, [facility] V28) 12/25/2021 Assessment & Plan (04/15/2024 4:29 PM EST): Overdue for eye exam and was referred for this Orders: Ambulatory referral to Ophthalmology; Future 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 ([facility] V24, [facility] V28) 12/25/2021 Assessment & Plan (04/15/2024 4:29 PM EST): Overdue for eye exam and was referred for this Orders: Ambulatory referral to Ophthalmology; Future Hemiparesis due to old cereb ral infarction ([facility] V24, [facility] V28) 07/14/2021 Overview (04/15/2024): Left hand weakness Assessment & Plan (11/23/2024 5:57 PM EDT): Continue aspirin/statin Carotid stenosis, right 08/02/2020 Overview (04/15/2024): [facility] [place] 07/19/2020 moderate focal stenosis prox R ICA, diffusely diminutive caliber R ICA distal to stenosis DM (diabetes mellitus), type 2 with peripheral vascular complications ([facility] V24, [facility]/HCC V28) 08/02/2020 Assessment & Plan (11/23/2024 5:57 PM EDT): Continue gabapentin Orders: gabapentin (NEURONTIN) 600 mg tablet; Take 1 tablet (600 mg total) by mouth 4 (four) times a day. Hypertension 04/13/2020 Assessment & Plan (11/23/2024 5:57 PM EDT): Goal blood pressure is less than 130/80. Continue losartan for now. May consider increasing medication at the next visit Orders: losartan (Cozaar) 50 mg tablet; Take 1 tablet (50 mg total) by mouth 1 (one) time each day. Assessment & Plan (08/17/2024 4:58 PM EDT): Continue losartan Orders: losartan (Cozaar) 50 mg tablet; Take 1 tablet (50 mg total) by mouth 1 (one) time each day. 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 atorvastatin (LIPITOR) 80 mg tablet; Take 1 tablet (80 mg total) by mouth 1 (one) time each day. Assessment & Plan (08/17/2024 4:58 PM EDT): Continue aspirin and statin Orders: atorvastatin (LIPITOR) 80 mg tablet; Take 1 tablet (80 mg total) by mouth 1 (one) time each day. aspirin 81 mg EC tablet; Take 1 tablet (81 mg total) by mouth 1 (one) time each day. Anxiety and depression 07/16/2018 Assessment & Plan (11/23/2024 5:57 PM EDT): Continue follow-up with psychiatrist/therapist. Continue buspirone 15mg BID, lamotrigine 50mg BID, venlafaxine 150mg daily, hydroxyzine 25mg PRN, topiramate 100mg nightly. Assessment & Plan (08/17/2024 4:58 PM EDT): Continue buspirone 15mg BID, lamotrigine 50mg BID, venlafaxine 150mg daily, hydroxyzine 25mg PRN, topiramate 100mg nightly. Follows with Arti Hudson at [facility] in [place] Has therapist and gets therapy weekly. Assessment & Plan (04/15/2024 4:29 PM EST): Stable Continue buspirone 15mg BID, lamotrigine 50mg BID, venlafaxine 150mg daily, hydroxyzine 25mg PRN, topiramate 100mg nightly. Follows with Arti Hudson at [facility] in [place] Continue therapy weekly. Hyperlipidemia 07/16/2018 Assessment & Plan (11/23/2024 5:57 PM EDT): Continue atorvastatin Orders: atorvastatin (LIPITOR) 80 mg tablet; Take 1 tablet (80 mg total) by mouth 1 (one) time each day. Assessment & Plan (08/17/2024 4:58 PM EDT): [...] Future Peripheral polyneuropathy 01/16/2017 Assessment & Plan (11/23/2024 5:57 PM EDT): Continue gabapentin Orders: gabapentin (NEURONTIN) 600 mg tablet; Take 1 tablet (600 mg total) by mouth 4 (four) times a day. Assessment & Plan (08/17/2024 4:58 PM EDT): Requesting referral to podiatry for neuropathy and plantar fascitis. Referral placed Orders: Ambulatory referral to Podiatry; Future DM (diabetes mellitus), type 2 with neurological complications ([facility] V24, [facility] V28) 08/14/2016 Overview (04/15/2024): Patient is seen at [facility] endocrinology group Assessment & Plan (11/23/2024 5:57 PM EDT): Continue endocrinology follow up Pending teaching for insulin pump which she already has She will complete pending labs today She was referred in the past to podiatry and ophthalmology. Reports that she lost her referrals. Requesting new referrals Orders: Ambulatory referral to Podiatry; Future Ambulatory referral to Ophthalmology; Future Assessment & Plan (08/17/2024 4:58 PM EDT): She will return on 08/27/24 for blood work ordered in March She will continue follow up with Dr. Hernandez in Endocrinlogy at [facility]. Continue insulin Tresiba and insulin sliding scale. Continue gabapentin 600mg QID for neuropathy. She is still waiting on insulin pump due to insurance delays Provided with number for [facility] to make an appointment. Referral was placed in March Assessment & Plan (04/15/2024 4:29 PM EST): Last A1c was in December was 10.6 She will continue follow-up with her dealer compliance representative at [facility] as well as her insulin regimen. Reports that the plan is for her to be placed on an insulin pump next year. Continue gabapentin 600mg QID for neuropathy. Orders: Hemoglobin A1c; Future Severe obesity with body mas s index (BMI) of 35.0 to 39.9 with serious comorbidity ([facility] V24, [facility] V28) 05/03/2014 Assessment & Plan (04/15/2024 4:29 PM EST): Resolved Problems Problem Noted Date Diagnosed Date Resolved Date Cannabinoid hyperemesis syndrome 07/14/2021 04/15/2024 Encounters Date Type Department Care Team Description 12/21/2024 Telephone Adult Medicine [address] [phone] Lyla Escalante MD 11/24/2024 1:57 PM EDT - 11/24/2024 11:59 PM EDT Hospital Encounter Radiology Department - [address] [phone] Lump of skin of back Discharge Disposition: Home or Self Care 11/23/2024 12:30 PM EDT Office Visit Adult [address] [phone] Lyla Escalante MD DM (diabetes mellitus), type 2 with neurological complications (CMS/HCC V24, CMS/HCC V28) (Primary Dx); DM (diabetes mellitus), type 2 with peripheral vascular complications (CMS/HCC V24, CMS/HCC V28); Peripheral polyneuropathy; Primary hypertension; Hemiparesis due to old cerebral infarction (CMS/HCC V24, CMS/HCC V28); Oswald oswald disease; Other iron deficiency anemia; Mixed hyperlipidemia; Mild persistent asthma without complication; Anxiety and depression; Muscle spasm of both lower legs; Systolic murmur; Lump of skin of back 11/09/2024 1:00 PM EDT - 11/09/2024 11:59 PM EDT Hospital Encounter [facility] [address] [place] [phone] Iron deficiency anemia due to chronic blood loss (Primary Dx) Discharge Disposition: Home or Self Care 11/06/2024 12:56 PM EDT - 11/06/2024 11:59 PM EDT Hospital Encounter [facility] [address] [place] [phone] Iron deficiency anemia due to chronic blood loss (Primary Dx) Discharge Disposition: Home or Self Care 11/03/2024 1:00 PM EDT - 11/03/2024 11:59 PM EDT Hospital Encounter [facility] [address] [place] [address] Iron deficiency anemia due to chronic blood loss (Primary Dx) Discharge Disposition: Home or Self Care from Last 3 Months Immunizations Immunization Administration Dates Next Due Influenza Quadrivalent, 0.5m [...] 08/02/2020 DX:Carot id stenosis, right; COMMENT: [facility] 07/19/2020 moderate focal stenosis prox R ICA, diffusely diminutive caliber R ICA distal to stenosis DM (diabetes mellitus), type 2 with peripheral vascular complications ([facility] V24, [facility] V28) 08/02/2020 DX:DM (diabetes mellitus), type 2 with peripheral vascular complications (HCC) DM (diabetes mellitus), type 2 with neurological complications ([facility] V24, [facility] V28) 08/14/2016 DX:DM (diabetes mellitus), t ype 2 with neurological complications (HCC); COMMENT: Patient is seen at [facility] endocrinology group 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 ([facility] V24, [facility] V28) 03/05/2022 DX:DM type 2 causing eye [...] for your loved ones. For example, child specialist or elderly care for an older adult? [...] Orientation Straight 11/03/2024 1: 00 PM EDT Obstetrics History Last Filed Vital Signs Vital Sign Reading Time Taken Comments Blood Pressure 135/87 11/23/2024 12:40 PM EDT Pulse 97 11/23/2024 12:40 PM EDT Temperature 36.8 C (98.2 F) 11/23/2024 12:40 PM EDT Respiratory Rate 17 11/23/2024 12:40 PM EDT Oxygen Saturation 100% 11/09/2024 1:18 PM EDT Inhaled Oxygen Concentration - - Weight 100 kg (221 lb) 11/23/2024 12:40 PM EDT Height 162.6 cm (5' 4 ) 11/23/2024 12:40 PM EDT Body Mass Index 37.93 11/23/2024 12:40 PM EDT Plan of Treatment Upcoming Encounters Date Type Department Care Team (Late st Contact Info) Description 02/08/2025 11:00 AM EDT Ancillary Procedure [facility] - [address] [place] [phone] 03/08/2025 3:15 PM EST Office Visit Orthopedic Surgery - [place] [address] [facility] [address] [place] [phone] Zuhair Gan, DPM [address] [phone] 03/22/2025 2:00 PM EST Appointment Radiology Department - [address] [phone] 03/22/2025 3:15 PM EST Office Visit [facility] Hematology Oncology [address] [place] [phone] Alexandra Rodriguez PA [address] [place] [address] 03/31/2025 12:30 PM EST Office Visit Adult Medicine [address] [phone] Lyla Escalante MD [address] [place] [address] Health Maintenance Due Date Last Done Comments Breast Cancer Screening 1980 Diabetes: Annual Foot Exam 1990 Diabetes: Annual Retina Eye Exam 1990 Hepatitis B Vaccines (1 of 3 - 19+ 3-dose series) 07/19/1999 Cervical Cancer Screening: P ap Smear 2001 HPV Vaccines (1 - 3-dose SCD M series) 07/19/2007 HIV Screening 04/01/2022 Medicare Annual Wellness Visit 04/01/2022 Depression Screening 04/29/2024 04/15/2024 DTaP,Tdap,and Td Vaccines (2 - Td or Tdap) 05/03/2024 05/03/2014 COVID-19 Vaccine (3 - 2024-2 6 season) 2024 04/10/2021, 03/13/2021 Influenza Vaccine (#1) 2024 , 04/29/2023 Diabetes: Annual Urine Albumin-Creatinine Ratio (uACR) 02/02/2025 02/03/2024 Social Influencers of Health Screening 04/20/2025 04/20/2024 Diabetes: Blood Sugar Contro l Test (HGBA1C) 05/26/2025 11/23/2024, 01/14/2024 Diabetes: Annual GFR (Glomerular Filtration Rate) 09/07/2025 09/07/2024, 01/14/2024 Hypertension/CHF/CAD Annual BMP Blood Test 09/07/2025 09/07/2024, 01/14/2024 Cholesterol Screening (Lipid Panel) 11/23/2029 11/23/2024 RSV Immunization Adult Patients (1 - 1-dose 75+ series) 07/19/2055 Pneumococcal Vaccine: Pediatrics (0 to 5 Years) and At-Risk Patients (6 to 49 Years) Completed 04/15/2024 Hepatitis C Screening Completed 11/23/2024 HIB Vaccines Aged Out No longer eligi [...] Procedure Name Priority Date/Time Associated Diagnosis Comments US ABDOMEN LIMITED Routine 11/24/2024 2: 12 PM EDT Lump of skin of back HEMOGLOBIN A1C Routine 11/23/2024 1:24 PM EDT DM (diabetes mellitus), type 2 with neurological complications ([facility] V24, [facility] V28) Diabetes mellitus with proteinuria (CMS/HCC V24, CMS/HCC V28) HEPATITIS C ANTIBODY Routine 11/23/2024 1:24 PM EDT Need for hepatitis C screening test HEPATIC FUNCTION PANEL Routine 11/23/2024 1:24 PM EDT Mixed hyperlipidemia Diabetes mellitus with proteinuria (CMS/HCC V24, CMS/HCC V28) LIPID PANEL WITH REFLEX TO DIRECT LDL Routine 11/23/2024 1:24 PM EDT Mixed hyperlipidemia CREATINE KINASE AND CKMB Routine 11/23/2024 1:24 PM EDT Muscle spasm of both lower legs MAGNESIUM Routine 11/23/2024 1:24 PM EDT Muscle spasm of both lower legs POCT GLUCOSE BLOOD Routine 11/03/2024 3: 48 PM EDT BASIC METABOLIC PANEL Routine 09/07/2024 2:58 PM EDT Iron deficiency anemia due to chronic blood loss Reactive thrombocytosis Hypertension, essential from Last 3 Months or Most Recently Relevant to Health Maintenance Results * US Abdomen Limited (11/24/2024 2:12 PM EDT) Anatomical Region Laterality Modality Body Ultrasound 11/24/2024 2:39 PM EDT Impressions 11/24/2024 2:41 PM EDT No sonographic correlate for the palpable right lower back lump. POS - [id number] -------- FINAL REPORT -------- Dictated By: Shanel García Dictated Date: 11/24/2024 14:39 ET Assigned Physician: Shanel García Reviewed and Electronically Signed By: Shanel García Signed Date: 11/24/2024 14:41 ET Workstation ID: [id number] Transcribed By: Self Edit Transcribed Date: 11/24/2024 14:39 ET Narrative 11/24/2024 2:41 PM EDT EXAM: Ultrasound abdomen, limited HISTORY: Soft tissue lump right lower back. COMPARISON: None FINDINGS: Patient delineated the palpable lump at the right lower back adjacent to the spine. Sonography shows no solid or cystic lesion or fluid collection in the area of concern. Procedure Note Shanel García MD - 11/24/2024 EXAM: Ultrasound abdomen, limited HISTORY: Soft tissue lump right lower back. COMPARISON: None FINDINGS: Patient delineated the palpable lump at the right lower back adjacent tothe spine. Sonography shows no solid or cystic lesion or fluid collectionin the area of concern. IMPRESSION: No sonographic correlate for the palpable right lower back lump. POS - [id number] -------- FINAL REPORT -------- Dictated By: Shanel García Dictated Date: 11/24/2024 14:39 ET Assigned Physician: Shanel García Reviewed and Electronically Signed By: Shanel García Signed Date: 11/24/2024 14:41 ET Workstation ID: [id number] Transcribed By: Self Edit Transcribed Date: 11/24/2024 14:39 ET Lyla Escalante MD IM US PROCEDURE S Final Result * Hepatitis C antibody (11/23/2024 1:24 PM EDT) [facility] Hepatitis C Antibody Negative Negative LAB CHEMISTRY METHOD 11/23/2024 8:[address] [facility] Blood Venous blood specimen / Unknown Venipuncture / Unknown 11/23/2024 1:24 PM EDT 11/23/2024 1:24 PM EDT Lyla Escalante MD LAB BLOOD ORDERA BLES Final Result [facility] [address] [place] [address], [place] [phone] * (ABNORMAL) Lipid panel with reflex to direct LDL (11/23/2024 1:24 PM EDT) Cholesterol 214(H) 0 - 200 mg/dL LAB CHEMISTRY METHOD 11/23/2024 4:[address] [facility] Triglycerides 93 0 - 150 mg/dL LAB CHEMISTRY METHOD 11/23/2024 4:[address] [facility] HDL 57 >=40 mg/dL LAB CHEMISTRY METHOD 11/23/2024 4:[address] [facility] LDL Calculated 138(H) 0 - 100 mg/dL LAB CHEMISTRY METHOD 11/23/2024 4:[address] [facility] VLDL Cholesterol Aubrey 18.6 mg/dL LAB CHEMISTRY METHOD 11/23/2024 4:[address] [facility] Non HDL Chol. (LDL+VLDL) 157(H) <145 mg/dL LAB CHEMISTRY METHOD 11/23/2024 4:[address] [facility] Chol/HDL Ratio 3.8 0.0 - 4.4 LAB CHEMISTRY METHOD 11/23/2024 4:[address] [facility] Blood Venous blood specimen / Unknown Venipuncture / Unknown 11/23/2024 1:24 PM EDT 11/23/2024 1:24 PM EDT Lyla Escalante MD LAB BLOOD ORDERA BLES Final Result [facility] [address] [place] [address], * Magnesium (11/23/2024 1:24 PM EDT) Magnesium 2.4 1.9 - 2.6 mg/dL LAB CHEMISTRY METHOD 11/23/2024 4:[address] [facility] Blood Venous blood specimen / Unknown Venipuncture / Unknown 11/23/2024 1:24 PM EDT 11/23/2024 1:24 PM EDT Lyla Escalante MD LAB BLOOD ORDERA BLES Final Result Performing Organization Address City/[facility]/ZIP Co de Phone Number [facility] [address] [place] [address], [place] [phone] * (ABNORMAL) Hemoglobin A1c (11/23/2024 1:24 PM EDT) Pathologist [facility] [place] Hemoglobin A1C 10.0(H) <6.5 % LAB CHEMISTRY METHOD 11/24/2024 10:[address] [facility] Mean Bld Glu Estim. 240 mg/dL LAB CHEMISTRY METHOD 11/24/2024 10:[address] [facility] Blood Venous blood specimen / Unknown Venipuncture / Unknown 11/23/2024 1:24 PM EDT 11/23/2024 1:24 PM EDT Lyla Escalante MD LAB BLOOD ORDERA BLES Final Result [facility] [address] [place] [address], [place] [phone] * (ABNORMAL) Creatine kinase and CKMB (11/23/2024 1:24 PM EDT) Pathologist [facility] [place] Total CK 183 22 - 269 unit/L LAB CHEMISTRY METHOD 11/23/2024 4:[address] [facility] CK-MB 10.3(H) 1.0 - 3.6 ng/mL LAB CHEMISTRY METHOD 11/23/2024 4:[address] [facility] CK-MB Index 0.1 0.0 - 5.0 LAB CHEMISTRY METHOD 11/23/2024 4:[address] [facility] Blood Venous blood specimen / Unknown Venipuncture / Unknown 11/23/2024 1:24 PM EDT 11/23/2024 1:24 PM EDT Lyla Escalante MD LAB BLOOD ORDERA BLES Final Result [facility] [address] [place] [address], [place] [phone] * (ABNORMAL) Hepatic function panel (11/23/2024 1:24 PM EDT) Total Protein 5.9(L) 6.0 - 8.0 g/dL LAB CHEMISTRY METHOD 11/23/2024 4:[address] [facility] Albumin 3.1(L) 3.2 - 5.0 g/dL LAB CHEMISTRY METHOD 11/23/2024 4:[address] [facility] Total Bilirubin 0.1 0.0 - 1.4 mg/dL LAB CHEMISTRY METHOD 11/23/2024 4:[address] [facility] Bilirubin, Direct <0.1 0.0 - 0.3 mg/dL LAB CHEMISTRY METHOD 11/23/2024 4:[address] [facility] Bilirubin, Indirect LAB CHEMISTRY METHOD 11/23/2024 4:[address] [facility] Comment:Unable to calculate Indirect Bilirubin. ALT (SGPT) 22 10 - 60 unit/L LAB CHEMISTRY METHOD 11/23/2024 4:[address] [facility] AST (SGOT) 17 10 - 42 unit/L LAB CHEMISTRY METHOD 11/23/2024 4:[address] [facility] Alkaline Phosphatase 76 42 - 121 unit/L LAB CHEMISTRY METHOD 11/23/2024 4:[address] [facility] Blood Venous blood specimen / Unknown Venipuncture / Unknown 11/23/2024 1:24 PM EDT 11/23/2024 1:24 PM EDT Lyla Escalante MD LAB BLOOD ORDERA BLES Final Result [facility] [address] [place] [address], [place] [phone] * POCT Glucose, blood (11/03/2024 3:48 PM EDT) Pathologist [facility] [place] Glucose POCT 72 70 - 100 mg/dL 11/03/2024 3:[address] [facility] Blood Capillary blood specimen / Unknown 11/03/2024 3:48 PM EDT 11/03/2024 3:50 PM EDT Generic Provider Poct LAB POINT OF CARE TEST DOCKED DEVICE UNSOLICITED RESULTS Final Result Performing Organization Address [facility]/ZIP Co de Phone Number [facility] [address] [place] [address], [place] [phone] * (ABNORMAL) Basic metabolic panel (09/07/2024 2:58 PM EDT) [facility] Sodium 139 133 - 145 mmol/L LAB CHEMISTRY METHOD 09/07/2024 5:11 PM [facility] Potassium 4.6 3.5 - 5.5 mmol/L LAB CHEMISTRY METHOD 09/07/2024 5:11 PM [facility] Chloride 107 96 - 110 mmol/L LAB CHEMISTRY METHOD 09/07/2024 5:[address] [facility] CO2 24 21 - 32 mmol/L LAB CHEMISTRY METHOD 09/07/2024 5:11 PM [facility] Anion Gap 8 3 - 11 LAB CHEMISTRY METHOD 09/07/2024 5:11 PM [facility] Glucose 104(H) 70 - 100 mg/dL LAB CHEMISTRY METHOD 09/07/2024 5:11 PM [facility] BUN 14 5 - 25 mg/dL LAB CHEMISTRY METHOD 09/07/2024 5:[address] [facility] Creatinine 0.86 0.50 - 1.10 mg/dL LAB CHEMISTRY METHOD 09/07/2024 5:[address] [facility] eGFR 86 >=60 mL/min/1. 73m2 LAB CHEMISTRY METHOD 09/07/2024 5:[address] [facility] Comment:Calculation based on the Chronic Kidney Disease Epidemiology Collaboration (CKD-EPI) equation refit without adjustment for race. BUN/Creatinine Ratio 16.3 LAB CHEMISTRY METHOD 09/07/2024 5:[address] [facility] Calcium 9.0 8.5 - 10.5 mg/dL LAB CHEMISTRY METHOD 09/07/2024 5:[address] [facility] Blood Venous blood specimen / Unknown Venipuncture / Unknown 09/07/2024 2:58 PM EDT 09/07/2024 4:36 PM EDT Vega Noemy Guardado MD LAB BLOOD ORDERABL ES Final Result [facility] [address] [place] [address], from Last 3 Months or Most Recently Relevant to Health Maintenance Insurance MEDICAID - [place] [employer] MEDICARE ADVANTAGE Care Teams Shoeshiner Relationship Specialty Start Date End Date Lyla Escalante MD [address] [place] [phone] PCP - General Internal Medicine 12/18/23
--- NOTE | 2025-01-25 10:38 | A.OFFVIS_ITS ---
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 Accompanied by: Daughter Allergies metformin Allergy (Unknown, Verified 09/22/24 15:21) dizziness fentanyl Adverse Reaction (Unknown, Verified 09/22/24 15:21) Vomiting HPI Comprehensive Diabetes Asmnt Most Recent Diabetes Results: Microalb/Creat Ratio, (<30) 1525.4 ug/mg cr H 12/09/23 Cholesterol, (<200) 171 mg/dL 07/18/23 HDL Cholesterol, (>40) 54 mg/dL 07/18/23 Triglycerides, (<150) 180 mg/dL H 07/18/23 Creatinine, (0.5-1.4) 1.24 mg/dL 04/15/24 BUN, (9-16) 23 mg/dL H 04/15/24 Sodium, (135-145) 133 mmol/L L 04/15/24 Potassium, (3.3-5.1) 4.3 mmol/L 04/15/24 Chloride, (96-108) 100 mmol/L 04/15/24 Carbon Dioxide, (22-29) 23 mmol/L 04/15/24 Calcium, (8.4-10.2) 9.9 mg/dL Δ 04/15/24 AST, (5-31) 13 U/L Δ 04/20/21 ALT, (0-31) 13 U/L 04/20/21 Total Protein, (6.5-8.0) 7.2 g/dL 04/20/21 Albumin, (3.5-5.0) 4.4 g/dL 04/20/21 [facility] Medical History Adrenal adenoma Hypertension Obesity due to excess calories Agoraphobia Stroke Asthma Peripheral neuropathy Depression Anxiety Class 1 obesity due to excess calories in adult Hyperlipidemia LDL goal <70 Type 2 diabetes mellitus with diabetic polyneuropathy Surgical History History of surgery Family History Mother Diabetes Father Diabetes Brother Hypertension Daughter Hypertension Social History Household Members: Children Alcohol intake: former Patient Tobacco Use Status: Current everyday Tobacco user Tobacco use type: Cigarette Cigarette Packs Per Day: 1 Cigarettes Per Day: 20.0 Substance Use Type: Marijuana Current occupational status: unemployed Assessment & Plan Assessment & Plan (1) Type 2 diabetes mellitus with diabetic polyneuropathy: Code(s): E11.42 - Type 2 diabetes mellitus with diabetic polyneuropathy Qualifiers: Diabetes mellitus long line teamster insulin use: with senior care use Qualified Code(s): E11.42 - Type 2 diabetes mellitus with diabetic polyneuropathy; Z79.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 Patient and her daughter declined to give T slim user name and password at today's visit. Patient's daughter states she will write down the information. The following topics were reviewed today: -Pump therapy basic concepts: Basal/bolus, insulin to carb ratio, correction factor, insulin on board -Device settings: Bluetooth/mobile connection (if applicable), correct date and time, sound volume -CGM settings(if integrated system): CGM graft views and trend arrows, alerts and alarms, Start new sensor ??? High Alert: 250 mg/dL ??? Low Alert: 70 mg/dL ??? Insulin delivery settings Program insulin to carb ratio, correction factor, target blood glucose, suspend or resume insulin delivery, bolus limit and basal limit settings Instructed patient to only use room temperature insulin, how to load cartridge or fill pod, with insulin. Fill tubing and cannula (if applicable) Inserting infusion set or starting pod Troubleshooting after starting new pod or inserting new insulin set: Occlusion, adhesive tape sensitivity, redness Check BG 2 hours after site change Safety information: Importance of a backup plan, for manual injections, proper prescriptions and emergency supplies ketone strips, and rules for testing for ketones Patient was able to insert insulin set today without difficulty. Patient understands the basic concepts of pump therapy, how to give insulin for meals and snacks, how to troubleshoot for hyper and hypoglycemia. Setting verified by [facility] Basal rate(s) (units/hour) : 12 AM? to 12 AM? 2.5 units / hr Bolus setting Insulin Carbohydrate Ratio (s) 12 AM? to 12 AM 1:4 Correction Factor / Sensitivity Factor 12 AM? to 12 AM 1:13 Control IQ Active Insulin Time:? 5 hours Target(s): 12 AM? to 12 AM 110 mg/dL Patient will [facility] with [facility] as instructed Patient will contact [facility] with questions or concerns, patient given IT number to support in any technical issues related to insulin pump Portions of this note were created using voice recognition software, please excuse any words or phrases that may have been misinterpreted. Patient Instructions: Follow-up with evening anchor in 1 week If outside of clinic hours and you have questions or concerns please call [facility] service, they are open 24 hours a day 7 days a week Coding Level of Care Code Est Pt Level 1 (96743) Diagnoses Type 2 diabetes mellitus with diabetic polyneuropathy, with long-term current use of insulin E11.42; Z79.4 Diabetes mellitus long line teamster insulin use: with long line teamster use
== END 2025-01-25 11:08 | disposition home or self-care (01) ==
LOC: HO.ENCR 08:56
PROVIDERS: PCP Family Medicine; Visit Provider Registered Nurse Diabetes Educator
DX: E11.42 Type 2 diabetes mellitus with diabetic polyneuropathy (principal); Z79.4 Long term (current) use of insulin

== ENCOUNTER → 2025-01-25 08:55 | Outpatient (BNVA) | payer MEDICARE, MEDICAID, SELFPAY | PROVIDERS: PCP Family Medicine; Visit Provider Registered Nurse Diabetes Educator | DX: E11.42 Type 2 diabetes mellitus with diabetic polyneuropathy (principal); Z79.4 Long term (current) use of insulin | CPT/HCPCS: 82947; 83036; 99211; 99212 ==

== ENCOUNTER 2025-01-25 11:16 | Outpatient (AMB) | payer MEDICARE, MEDICAID, SELFPAY ==
--- NOTE | 2025-01-25 11:27 | MHC.OFFVIS ---
Vital Signs 01/25/25 11:36 BMI Reason not done Patient refused/unable BP 144/82 H Blood Pressure Location Rt brachial Position Sitting Pulse 94 Pulse Source Pulse Oximeter Pulse Oximetry (%) 98 Oxygen Delivery Method Room Air Intake Visit Reasons: Adrenal adenoma Proteinuria Type 2 diabetes mellit Intake Note: Patient present today for Type 2 Diabetes Mellitus, Adrenal adenoma and Proteinuria. 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 Accompanied by: Daughter Allergies metformin Allergy (Unknown, Verified 01/25/25 11:32) dizziness fentanyl Adverse Reaction (Unknown, Verified 01/25/25 11:32) Vomiting Medication List - Last Reconciled 01/25/25 by Rowan Lou MD acetone (urine) test (Ketone Urine Test strips) As directed prn glucose over 300, illness, nausea, vomiting tid prn albuterol sulfate 90 mcg/actuation inhalation aspirin 81 mg PO DAILY atorvastatin 80 mg PO BEDTIME blood sugar diagnostic (OneTouch Verio test strips) As directed three times a day blood-glucose meter (OneTouch Verio Flex Meter) As directed four times a day blood-glucose sensor (TeraDiode G7 Sensor device) As directed every 10 days buspirone 15 mg PO BID cyclobenzaprine 5 mg PO BEDTIME PRN ferrous sulfate 325 mg PO DAILY Fiasp FlexTouch U-100 Insulin 100 unit/mL (3 mL) (insulin aspart (niacinamide)) 16-20 units tid before meals subcutaneously use as directed; 30 days NS Fiasp U-100 Insulin 100 unit/mL (insulin aspart (niacinamide)) up to 150 units of insulin daily via insulin pump subcutaneously every 6 hours; administer during TPN infusion 30 days NS fluticasone propionate 220 mcg/actuation 2 puffs PO BID gabapentin 600 mg PO QID PRN glucagon (Gvoke HypoPen 1-Pack) 1 mg (0.2 mL) subcut ONCE hydroxyzine HCl 50 mg PO QID insulin degludec (Tresiba FlexTouch U-200 insulin) 120 units (0.6 mL) subcut BEDTIME 30 days ketone blood test As directed lamotrigine 50 mg PO BID lancets (Countdown To Buyuch Delica Plus Lancet) As directed four times a day losartan 50 mg PO DAILY ondansetron HCl 4 mg PO Q8H PRN pen needle, diabetic As directed pen needle, diabetic As directed 4 times a day topiramate 100 mg PO DAILY venlafaxine ER 150 mg PO DAILY HPI Comments Details: 44 yo female with DM type 2 with complications of neuropathy, CVA, retinopathy, CKD with proteinuria, peripheral vascular disease, with long-term insulin use coming in today for follow up. Type 2 diabetes mellitus She last saw Abigail Bernstein APRN in July 2024. History of diabetes diagnosed at age 27 In 2020 had negative islet cell, breezy antibodies Detectable C-peptide Here today with her daughter Serenity. Prior medications DKA with Mounjaro? 2022 hospitalization with DKA Actos 15 mg daily stopped? per patient she never got it Diabetes medications: Tresiba 130 units daily Fiasp prior to meals. With carb ratio 1:5 and insulin sensitivity factor 1:10 usual doses generally 10 to 15 units Met with assistant health educator today 01/25/2025 and was started on tandem T slim insulin pump a Dexcom G7 with Fiasp Radhika reports no interval hospitalizations . A1C 01/25/2025 POC: 10.5 % July 2024 9.5% February 2024 10.2%. Micro and macrovascular complications: retinopathy, last eye visit: 2 years ago? 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 to 12 AM? 2.5 units / hr Bolus setting Insulin Carbohydrate Ratio (s) 12 AM? to 12 AM 1:4 Correction Factor / Sensitivity Factor 12 AM? to 12 AM 1:13 Control IQ Active Insulin Time:? 5 hours Target(s): 12 AM? to 12 AM 110 mg/dL Right adrenal adenoma MRI abdomen June 2023 showed a 2.6 cm right adrenal mass consistent with a benign adenoma. Dexamethasone suppression test done in May 2020 and then repeated in November 2023 both with normal results. Normal plasma metanephrine and normetanephrine levels from March 2024. Renin and aldosterone were not checked because apparently no history of hypertension? Physical exam General: sitting comfortably in no acute distress HEENT: normocephalic/atraumatic Cardiac: normal heart sounds Pulm: normal breath sounds B/L, no added breath sounds Abd: not distended, no tenderness Extremities: no edema, no signs of myxedema Laboratory Tests 06/02/20 07/18/23 12/09/23 08:35 09:48 07:51 Hgb Hct Plt Count Creatinine Estimated GFR Hgb A1c (Clinic) B-Natriuretic Peptide Triglycerides 180 H Cholesterol 171 LDL Cholesterol, Calc 81 HDL Cholesterol 54 DHEA Sulfate 74 Cortisol 1.4 L ACTH <5 L Random Cortisol < 1.0 Plasma Free Metaneph Plasma Free Normeta Plas Total Metaneph U Random Total Protein Urine Creatinine Urine Microalbumin Microalb/Creat Ratio Dexamethasone 109 194 12/09/23 12/27/23 03/17/24 07:55 14:39 16:31 Hgb Hct Plt Count Creatinine Estimated GFR Hgb A1c (Clinic) 10.1 H 10.2 H B-Natriuretic Peptide Triglycerides Cholesterol LDL Cholesterol, Calc HDL Cholesterol DHEA Sulfate Cortisol ACTH Random Cortisol Plasma Free Metaneph Plasma Free Normeta Plas Total Metaneph U Random Total Protein Urine Creatinine 37.89 Urine Microalbumin 578.0 Microalb/Creat Ratio 1525.4 H Dexamethasone 04/07/24 04/15/24 08/04/24 14:39 14:01 16:00 Hgb 12.4 Hct 38.1 Plt Count 419 H Creatinine 1.24 Estimated GFR 47 Hgb A1c (Clinic) 9.5 H B-Natriuretic Peptide 34 Triglycerides Cholesterol LDL Cholesterol, Calc HDL Cholesterol DHEA Sulfate Cortisol ACTH Random Cortisol Plasma Free Metaneph 31 Plasma Free Normeta 95 Plas Total Metaneph 126 U Random Total Protein Urine Creatinine Urine Microalbumin Microalb/Creat Ratio Dexamethasone 09/02/24 15:04 Hgb Hct Plt Count Creatinine Estimated GFR Hgb A1c (Clinic) B-Natriuretic Peptide Triglycerides Cholesterol LDL Cholesterol, Calc HDL Cholesterol DHEA Sulfate Cortisol ACTH Random Cortisol Plasma Free Metaneph Plasma Free Normeta Plas Total Metaneph U Random Total Protein 235 H Urine Creatinine 72.89 Urine Microalbumin Microalb/Creat Ratio Dexamethasone Laboratory Tests 04/20/21 12:09 C-Peptide 1.24 BREEZY Antibody <5 PFSH Medical History (Updated 01/25/25 @ 12:27 by Rowan Lou MD) Insulin pump in place Dyslipidemia associated with type 2 diabetes mellitus Adrenal adenoma Hypertension Obesity due to excess calories Agoraphobia Stroke Asthma Peripheral neuropathy Depression Anxiety Class 1 obesity due to excess calories in adult Hyperlipidemia LDL goal <70 Type 2 diabetes mellitus with diabetic polyneuropathy Surgical History History of surgery Family History Mother Diabetes Father Diabetes Brother Hypertension Daughter Hypertension Social History Household Members: Children Alcohol intake: former Patient Tobacco Use Status: Current everyday Tobacco user Tobacco use type: Cigarette Cigarette Packs Per Day: 1 Cigarettes Per Day: 20.0 Substance Use Type: Marijuana Current occupational status: unemployed Physical Exam Vital Signs: Last Vital Signs Pulse 94 01/25/25 11:36 BP 144/82 H 01/25/25 11:36 Pulse Ox 98 01/25/25 11:36 Oxygen Delivery Method Room Air 01/25/25 11:36 Results AMB Hemoglobin A1c AMB Hemoglobin A1c 10.5 % Last Edit by ROMELIA Rich on 01/25/25 11:59 Results Reviewed Results Reviewed: Laboratory Last Values Glucose (Clinic) 192 mg/dL (60-115) H 01/25/25 11:39 Assessment & Plan Assessment & Plan (1) Type 2 diabetes mellitus with diabetic polyneuropathy: Code(s): E11.42 - Type 2 diabetes mellitus with diabetic polyneuropathy Category: Medical Qualifiers: Diabetes mellitus half-way insulin use: with half-way use Qualified Code(s): E11.42 - Type 2 diabetes mellitus with diabetic polyneuropathy; Z79.4 - senior living (current) use of insulin Plan: 44-year-old female with type 2 diabetes mellitus with long-term insulin use with complications of neuropathy, retinopathy, CVA with residual left-sided weakness in 2022, with diabetic kidney disease with proteinuria, with peripheral vascular disease with the A1c of 10.5% POC 01/25/2025 which is up from 9.2% in July 2024. CGM data downloaded which shows she has a overnight hyperglycemia in addition to postprandial hyperglycemia mostly after dinner. She was transitioned to tandem T slim insulin pump 01/25/2025 today with Dexcom G7 with Fiasp insulin. -Pump settings: Basal rate(s) (units/hour) : 12 AM? to 12 AM? 2.5 units / hr Bolus setting Insulin Carbohydrate Ratio (s) 12 AM? to 12 AM 1:4 Correction Factor / Sensitivity Factor 12 AM? to 12 AM 1:13 Control IQ Active Insulin Time:? 5 hours Target(s): 12 AM? to 12 AM 110 mg/dL We will plan to see her back in 2 weeks. -Overdue for eye visit, has a history of retinopathy, last visit 2 years ago, has referral, needs to make appointment -Seeing Podiatry February 2025, for initial visit, has a history of neuropathy (2) PAD (peripheral artery disease): Comment: 04/11/2022 atherectomy and plasty of right SFA Code(s): I73.9 - Peripheral vascular disease, unspecified Category: Medical Plan: Seeing vascular surgery, last visit August 2024, observation recommended (3) Adrenal adenoma: Comment: Most likely an incidentaloma Code(s): D35.00 - Benign neoplasm of unspecified adrenal gland Category: Medical Qualifiers: Laterality: right Qualified Code(s): D35.01 - Benign neoplasm of right adrenal gland Plan: MRI abdomen June 2023 showed a 2.6 cm right adrenal mass consistent with a benign adenoma. Dexamethasone suppression test done in May 2020 and then repeated in November 2023 both with normal results. Normal plasma metanephrine and normetanephrine levels from March 2024. Renin and aldosterone were not checked because apparently no history of hypertension? Patient is unclear whether she has a history of hypertension or not, she is on losartan 50 mg daily but that could have been for diabetic kidney disease. Her blood pressure is mildly elevated today. In the future I will consider testing her for renin and aldosterone as well. Today majority of the visit was spent addressing diabetes as she was a new pump start today. (4) Dyslipidemia associated with type 2 diabetes mellitus: Code(s): E11.69 - Type 2 diabetes mellitus with other specified complication; E78.5 - Hyperlipidemia, unspecified Category: Medical Plan: LDL 83 mg/dL from June 2023. No recent LDL in the chart. Plan: -ordered lipid panel -continue atorvastatin 80 mg daily (5) Proteinuria: Code(s): R80.9 - Proteinuria, unspecified Category: Medical Qualifiers: Proteinuria type: persistent Qualified Code(s): R80.1 - Persistent proteinuria, unspecified Plan: diabetic kidney disease with proteinuria, EGFR March, following with Nephrology, last visit August 2024, on losartan 50 mg daily (6) Insulin pump in place: Code(s): Z96.41 - Presence of insulin pump (external) (internal) Category: Medical Plan: Tandem T slim insulin pump with Dexcom G7 with Fiasp started 01/25/2025 Prescribed nasal glucagon Prescribed you urine ketone strips Has Tresiba pens for backup supplies: We will determine backup plan dose once we have more data but she was injecting 120-130 units of Tresiba previously Plan I spent 45 minutes in reviewing the record, seeing the patient and documenting in the medical record. Orders: Orders Complete Blood Count no Diff Today E11.42 - Type 2 diabetes mellitus with diabetic polyneuropathy, E11.69 - Type 2 diabetes mellitus with other specified complication, E78.5 - Hyperlipidemia, unspecified, Z79.4 - senior living (current) use of insulin Aspartate Amino Transferase Today E11.42 - Type 2 diabetes mellitus with diabetic polyneuropathy, E11.69 - Type 2 diabetes mellitus with other specified complication, E78.5 - Hyperlipidemia, unspecified, Z79.4 - senior living (current) use of insulin Creatinine Today E11.42 - Type 2 diabetes mellitus with diabetic polyneuropathy, E11.69 - Type 2 diabetes mellitus with other specified complication, E78.5 - Hyperlipidemia, unspecified, Z79.4 - senior living (current) use of insulin AMB Hemoglobin A1c Today E11.42 - Type 2 diabetes mellitus with diabetic polyneuropathy, 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 AMB Glucose Monitoring Today E11.42 - Type 2 diabetes mellitus with diabetic polyneuropathy, Z79.4 - senior living (current) use of insulin Lipid Panel Today E11.42 - Type 2 diabetes mellitus with diabetic polyneuropathy, E11.69 - Type 2 diabetes mellitus with other specified complication, E78.5 - Hyperlipidemia, unspecified, Z79.4 - senior living (current) use of insulin Alanine Aminotransferase Today E11.42 - Type 2 diabetes mellitus with diabetic polyneuropathy, E11.69 - Type 2 diabetes mellitus with other specified complication, E78.5 - Hyperlipidemia, unspecified, Z79.4 - senior living (current) use of insulin Medications: New glucagon 3 mg/actuation (Baqsimi) 3 mg intranasal ONCE 1 ea 2RF Refilled acetone (urine) test (Ketone Urine Test strips) As directed prn glucose over 300, illness, nausea, vomiting tid prn 25 ea 1RF E11.42 - Type 2 diabetes mellitus with diabetic polyneuropathy, 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
[2025-01-25 11:36] VITALS: BP 144/82; PULSE 94; O2SAT 98
[2025-01-25 11:43] LABS: Glucose, Whole Blood 192 mg/dL (60-115)
== END 2025-01-25 12:10 | disposition home or self-care (01) ==
LOC: HO.ENCR 11:17
PROVIDERS: PCP Family Medicine; Visit Provider Student in an Organized Health Care Education/Training Program
DX: E11.42 Type 2 diabetes mellitus with diabetic polyneuropathy (principal); Z79.4 Long term (current) use of insulin; E11.69 Type 2 diabetes mellitus with other specified complication; I73.9 Peripheral vascular disease, unspecified; D35.01 Benign neoplasm of right adrenal gland; E78.5 Hyperlipidemia, unspecified; R80.1 Persistent proteinuria, unspecified; Z96.41 Presence of insulin pump (external) (internal)
CPT/HCPCS: 95251; 99215; G2211

== ENCOUNTER 2025-02-10 12:23 | Outpatient (AMB) | payer MEDICARE, MEDICAID, SELFPAY ==
--- NOTE | 2025-02-10 13:26 | MHC.AMDMED ---
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 Visit Reasons: 60 min Continuity Tester Required: No Accompanied by: Daughter Allergies metformin Allergy (Unknown, Verified 02/10/25 13:45) dizziness fentanyl Adverse Reaction (Unknown, Verified 01/25/25 11:32) Vomiting [facility] Medical History (Updated 01/25/25 @ 12:27 by Rowan Lou MD) Insulin pump in place Dyslipidemia associated with type 2 diabetes mellitus Adrenal adenoma Hypertension Obesity due to excess calories Agoraphobia Stroke Asthma Peripheral neuropathy Depression Anxiety Class 1 obesity due to excess calories in adult Hyperlipidemia LDL goal <70 Type 2 diabetes mellitus with diabetic polyneuropathy Surgical History History of surgery Family History Mother Diabetes Father Diabetes Brother Hypertension Daughter Hypertension Social History Household Members: Children Alcohol intake: former Patient Tobacco Use Status: Current everyday Tobacco user Tobacco use type: Cigarette Cigarette Packs Per Day: 1 Cigarettes Per Day: 20.0 Substance Use Type: Marijuana Current occupational status: unemployed Assessment & Plan Assessment & Plan (1) Type 2 diabetes mellitus with diabetic polyneuropathy: Code(s): E11.42 - Type 2 diabetes mellitus with diabetic polyneuropathy Qualifiers: Diabetes mellitus salvage determiner insulin use: with salvage determiner use Qualified Code(s): E11.42 - Type 2 diabetes mellitus with diabetic polyneuropathy; Z79.4 - 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 The following topics were reviewed today: -Pump therapy basic concepts: Basal/bolus, insulin to carb ratio, correction factor, insulin on board -Device settings: Bluetooth/mobile connection (if applicable), correct date and time, sound volume -CGM settings(if integrated system): CGM graft views and trend arrows, alerts and alarms, Start new sensor ??? High Alert: 250 mg/dL ??? Low Alert: 70 mg/dL Insulin delivery settings limited pump data because patient was having difficulty inserting infusion sets. at today's visit discussed different options for infusion sets with patient in her daughter. patient daughter inserted sure T infusion set at today's visit. Patient's daughter also was given box of auto soft XC infusion sets patient will trial both infusion set sent a side which she prefers patient also having can activity issues with Dexcom G7 an insulin pump. instructed patient to always wear insulin pump and sensor on the same side of body, with insulin pumps facing forward Inserting infusion set or starting pod Troubleshooting after starting new pod or inserting new insulin set: Occlusion, adhesive tape sensitivity, redness Check BG 2 hours after site change Safety information: Importance of a backup plan, for manual injections, proper prescriptions and emergency supplies ketone strips, and rules for testing for ketones Patient was able to insert insulin set today without difficulty. Patient understands the basic concepts of pump therapy, how to give insulin for meals and snacks, how to troubleshoot for hyper and hypoglycemia. Setting verified by [facility] Basal rate(s) (units/hour) : 12 AM? to 12 AM? 2.5 units / hr Bolus setting Insulin Carbohydrate Ratio (s) 12 AM? to 12 AM? 1:4 Correction Factor / Sensitivity Factor 12 AM? to 12 AM? 1:13 Active Insulin Time:? 5 hours Target(s): control IQ 12 AM? to 12 AM? 110 mg/dL Patient will follow up with [facility] as instructed Patient will contact [facility] with questions or concerns, patient given IT number to support in any technical issues related to insulin pump Portions of this note were created using voice recognition software, please excuse any words or phrases that may have been misinterpreted. Patient Instructions: follow-up with diabetes education nurse in 1 month Coding Level of Care Code Est Pt Level 1 (43076) Diagnoses Type 2 diabetes mellitus with diabetic polyneuropathy, with long-term current use of insulin E11.42; Z79.4 Diabetes mellitus residential insulin use: with residential use
== END 2025-02-10 13:32 | disposition home or self-care (01) ==
LOC: HO.ENCR 12:24
PROVIDERS: PCP Family Medicine; Visit Provider Registered Nurse Diabetes Educator
DX: E11.42 Type 2 diabetes mellitus with diabetic polyneuropathy (principal); Z79.4 Long term (current) use of insulin

== ENCOUNTER 2025-02-10 12:23 | Outpatient (AMB) | payer MEDICARE, MEDICAID, SELFPAY ==
[2025-02-10 13:42] VITALS: BP 132/74; PULSE 102; O2SAT 98
--- NOTE | 2025-02-10 13:42 | A.OFFVIS_ITS ---
Vital Signs 3 02/10/25 13:42 Height 5 ft 4 in BMI Reason not done Patient refused/unable BP 132/74 Blood Pressure Location Rt brachial Position Sitting Pulse 102 H Pulse Source Pulse Oximeter Pulse Oximetry (%) 98 Oxygen Delivery Method Room Air Intake Visit Reasons: Adrenal adenoma Proteinuria Type 2 diabetes mellit Intake Note: Patient present today for Type 2 Diabetes Mellitus, Adrenal adenoma and Proteinuria. Last Diabetic eye exam:?Did not have one. Last Podiatry Visit: Due for appointment?in February. Random Glucose:?207 mg/dl HgA1C: 10.5%? 01/25/25 Accompanied by: Spouse, child Allergies metformin Allergy (Unknown, Verified 02/10/25 13:45) dizziness fentanyl Adverse Reaction (Unknown, Verified 01/25/25 11:32) Vomiting Medication List - Last Reconciled 02/10/25 by Rowan Lou MD acetone (urine) test (Ketone Urine Test strips) As directed prn glucose over 300, illness, nausea, vomiting tid prn albuterol sulfate 90 mcg/actuation inhalation aspirin 81 mg PO DAILY atorvastatin 80 mg PO BEDTIME blood sugar diagnostic (OneTouch Verio test strips) As directed three times a day blood-glucose meter (OneTouch Verio Flex Meter) As directed four times a day blood-glucose sensor ([employer] G7 Sensor device) As directed every 10 days buspirone 15 mg PO BID cyclobenzaprine 5 mg PO BEDTIME PRN ferrous sulfate 325 mg PO DAILY Fiasp FlexTouch U-100 Insulin 100 unit/mL (3 mL) (insulin aspart (niacinamide)) 16-20 units tid before meals subcutaneously use as directed; 30 days NS Fiasp U-100 Insulin 100 unit/mL (insulin aspart (niacinamide)) up to 150 units of insulin daily via insulin pump subcutaneously every 6 hours; administer during TPN infusion 30 days NS fluticasone propionate 220 mcg/actuation 2 puffs PO BID gabapentin 600 mg PO QID PRN glucagon 3 mg/actuation (Baqsimi) 3 mg intranasal ONCE hydroxyzine HCl 50 mg PO QID insulin degludec (Tresiba FlexTouch U-200 insulin) 120 units (0.6 mL) subcut BEDTIME 30 days ketone blood test As directed lamotrigine 50 mg PO BID lancets (BA SystemsTouch Delica Plus Lancet) As directed four times a day losartan 50 mg PO DAILY ondansetron HCl 4 mg PO Q8H PRN pen needle, diabetic As directed pen needle, diabetic As directed 4 times a day topiramate 100 mg PO DAILY venlafaxine ER 150 mg PO DAILY HPI Comments Details: 44 yo female with DM type 2 with complications of neuropathy, CVA, retinopathy, CKD with proteinuria, peripheral vascular disease, with long-term insulin use coming in today for follow up. Type 2 diabetes mellitus She was last seen in 01/25/25 History of diabetes diagnosed at age 27 In 2020 had negative islet cell, breezy antibodies Detectable C-peptide Here today with her daughter Serenibraden and . Prior medications DKA with Mounjaro? 2022 hospitalization with DKA Actos 15 mg daily stopped? per patient she never got it Tresiba 130 units daily Fiasp prior to meals. With carb ratio 1:5 and insulin sensitivity factor 1:10 usual doses generally 10 to 15 units Current regimen Met with staff development educator 01/25/2025 and was started on tandem T slim insulin pump a Dexcom G7 with Fiasp Was off the pump for past 2 days , reconnected today, apparently pump was not connected to CGM, though we downloaded her CGM data today, she has been in manual mode for tandem. Radhika reports no interval hospitalizations . A1C 01/25/2025 POC: 10.5 % July 2024 9.5% February 2024 10.2%. Micro and macrovascular complications: retinopathy, last eye visit: 2 years ago? 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 to 12 AM? 2.5 units / hr Bolus setting Insulin Carbohydrate Ratio (s) 12 AM? to 12 AM 1:4 Correction Factor / Sensitivity Factor 12 AM? to 12 AM 1:13 Control IQ Active Insulin Time:? 5 hours Target(s): 12 AM? to 12 AM 110 mg/dL Right adrenal adenoma MRI abdomen June 2023 showed a 2.6 cm right adrenal mass consistent with a benign adenoma. Dexamethasone suppression test done in May 2020 and then repeated in November 2023 both with normal results. Normal plasma metanephrine and normetanephrine levels from March 2024. Renin and aldosterone were not checked Physical exam General: sitting comfortably in no acute distress HEENT: normocephalic/atraumatic Cardiac: normal heart sounds Pulm: normal breath sounds B/L, no added breath sounds Abd: not distended, no tenderness Extremities: no edema, no signs of myxedema Laboratory Tests 06/02/20 07/18/23 12/09/23 08:35 09:48 07:51 Hgb Hct Plt Count Creatinine Estimated GFR Hgb A1c (Clinic) B-Natriuretic Peptide Triglycerides 180 H Cholesterol 171 LDL Cholesterol, Calc 81 HDL Cholesterol 54 DHEA Sulfate 74 Cortisol 1.4 L ACTH <5 L Random Cortisol < 1.0 Plasma Free Metaneph Plasma Free Normeta Plas Total Metaneph U Random Total Protein Urine Creatinine Urine Microalbumin Microalb/Creat Ratio Dexamethasone 109 194 12/09/23 12/27/23 03/17/24 07:55 14:39 16:31 Hgb Hct Plt Count Creatinine Estimated GFR Hgb A1c (Clinic) 10.1 H 10.2 H B-Natriuretic Peptide Triglycerides Cholesterol LDL Cholesterol, Calc HDL Cholesterol DHEA Sulfate Cortisol ACTH Random Cortisol Plasma Free Metaneph Plasma Free Normeta Plas Total Metaneph U Random Total Protein Urine Creatinine 37.89 Urine Microalbumin 578.0 Microalb/Creat Ratio 1525.4 H Dexamethasone 04/07/24 04/15/24 08/04/24 14:39 14:01 16:00 Hgb 12.4 Hct 38.1 Plt Count 419 H Creatinine 1.24 Estimated GFR 47 Hgb A1c (Clinic) 9.5 H B-Natriuretic Peptide 34 Triglycerides Cholesterol LDL Cholesterol, Calc HDL Cholesterol DHEA Sulfate Cortisol ACTH Random Cortisol Plasma Free Metaneph 31 Plasma Free Normeta 95 Plas Total Metaneph 126 U Random Total Protein Urine Creatinine Urine Microalbumin Microalb/Creat Ratio Dexamethasone 09/02/24 15:04 Hgb Hct Plt Count Creatinine Estimated GFR Hgb A1c (Clinic) B-Natriuretic Peptide Triglycerides Cholesterol LDL Cholesterol, Calc HDL Cholesterol DHEA Sulfate Cortisol ACTH Random Cortisol Plasma Free Metaneph Plasma Free Normeta Plas Total Metaneph U Random Total Protein 235 H Urine Creatinine 72.89 Urine Microalbumin Microalb/Creat Ratio Dexamethasone Laboratory Tests 04/20/21 12:09 C-Peptide 1.24 BREEZY Antibody <5 PFSH Medical History (Updated 01/25/25 @ 12:27 by Rowan Lou MD) Insulin pump in place Dyslipidemia associated with type 2 diabetes mellitus Adrenal adenoma Hypertension Obesity due to excess calories Agoraphobia Stroke Asthma Peripheral neuropathy Depression Anxiety Class 1 obesity due to excess calories in adult Hyperlipidemia LDL goal <70 Type 2 diabetes mellitus with diabetic polyneuropathy Surgical History History of surgery Family History Mother Diabetes Father Diabetes Brother Hypertension Daughter Hypertension Social History Household Members: Children Alcohol intake: former Patient Tobacco Use Status: Current everyday Tobacco user Tobacco use type: Cigarette Cigarette Packs Per Day: 1 Cigarettes Per Day: 20.0 Substance Use Type: Marijuana Current occupational status: unemployed Physical Exam Vital Signs: Last Vital Signs Pulse 102 H 02/10/25 13:42 BP 132/74 02/10/25 13:42 Pulse Ox 98 02/10/25 13:42 Oxygen Delivery Method Room Air 02/10/25 13:42 Results Reviewed Results Reviewed: Laboratory Last Values Glucose (Clinic) 207 mg/dL (60-115) H 02/10/25 13:50 Assessment & Plan Assessment & Plan (1) Type 2 diabetes mellitus with diabetic polyneuropathy: Code(s): E11.42 - Type 2 diabetes mellitus with diabetic polyneuropathy Category: Medical Qualifiers: Diabetes mellitus terminal gauger supervisor insulin use: with terminal gauger supervisor use Qualified Code(s): E11.42 - Type 2 diabetes mellitus with diabetic polyneuropathy; Z79.4 - vermin exterminator (current) use of insulin Plan: 44-year-old female with type 2 diabetes mellitus with long-term insulin use with complications of neuropathy, retinopathy, CVA with residual left-sided weakness in 2022, with diabetic kidney disease with proteinuria, with peripheral vascular disease with the A1c of 10.5% POC 01/25/2025 which is up from 9.2% in July 2024. Met with staff development educator 01/25/2025 and was started on tandem T slim insulin pump a Dexcom G7 with Fiasp Was off the pump for past 2 days , reconnected today, apparently pump was not connected to CGM, though we downloaded her CGM data today, she has been in manual mode for tandem. She also met with the staff development educator today and she was advised to use the true steel infusion set. -Pump settings: Basal rate(s) (units/hour) : 12 AM? to 12 AM? 2.5 units / hr Bolus setting Insulin Carbohydrate Ratio (s) 12 AM? to 12 AM 1:4 Correction Factor / Sensitivity Factor 12 AM? to 12 AM 1:13 Control IQ Active Insulin Time:? 5 hours Target(s): 12 AM? to 12 AM 110 mg/dL We will plan to see her back in 2 weeks. -Overdue for eye visit, has a history of retinopathy, last visit 2 years ago, has referral, needs to make appointment -Seeing Podiatry February 2025, for initial visit, has a history of neuropathy (2) PAD (peripheral artery disease): Comment: 04/11/2022 atherectomy and plasty of right SFA Code(s): I73.9 - Peripheral vascular disease, unspecified Category: Medical Plan: Seeing vascular surgery, last visit August 2024, observation recommended (3) Adrenal adenoma: Comment: Most likely an incidentaloma Code(s): D35.00 - Benign neoplasm of unspecified adrenal gland Category: Medical Qualifiers: Laterality: right Qualified Code(s): D35.01 - Benign neoplasm of right adrenal gland Plan: MRI abdomen June 2023 showed a 2.6 cm right adrenal mass consistent with a benign adenoma. Dexamethasone suppression test done in May 2020 and then repeated in November 2023 both with normal results. Normal plasma metanephrine and normetanephrine levels from March 2024. Renin and aldosterone were not checked because apparently no history of hypertension? Patient is unclear whether she has a history of hypertension or not, she is on losartan 50 mg daily but that could have been for diabetic kidney disease. Her blood pressure has been mildly elevated in the past couple of visits, we will check aldosterone, renin, BMP. (4) Dyslipidemia associated with type 2 diabetes mellitus: Code(s): E11.69 - Type 2 diabetes mellitus with other specified complication; E78.5 - Hyperlipidemia, unspecified Category: Medical Plan: LDL 83 mg/dL from June 2023. No recent LDL in the chart. Plan: -ordered lipid panel last visit she is still has not done this. -continue atorvastatin 80 mg daily (5) Proteinuria: Code(s): R80.9 - Proteinuria, unspecified Category: Medical Qualifiers: Proteinuria type: persistent Qualified Code(s): R80.1 - Persistent proteinuria, unspecified Plan: diabetic kidney disease with proteinuria, EGFR March, following with Nephrology, last visit August 2024, on losartan 50 mg daily (6) Insulin pump in place: Code(s): Z96.41 - Presence of insulin pump (external) (internal) Category: Medical Plan: Tandem T slim insulin pump with Dexcom G7 with Fiasp started 01/25/2025 Prescribed nasal glucagon Prescribed urine ketone strips Has Tresiba pens for backup supplies: We will determine backup plan dose once we have more data but she was injecting 120-130 units of Tresiba previously Plan I spent 30 minutes in reviewing the record, seeing the patient and documenting in the medical record. Orders: Orders 2 Renin Today E11.69 - Type 2 diabetes mellitus with other specified complication, E78.5 - Hyperlipidemia, unspecified, I10 - Essential (primary) hypertension, I73.9 - Peripheral vascular disease, unspecified Aldosterone Today E11.69 - Type 2 diabetes mellitus with other specified complication, E78.5 - Hyperlipidemia, unspecified, I10 - Essential (primary) hypertension, I73.9 - Peripheral vascular disease, unspecified Coding Level of Care Code Est Pt Level 4 (88672) Complex EM visit Add On G2211 Diagnoses Type 2 diabetes mellitus with diabetic polyneuropathy, with long-term current use of insulin E11.42; Z79.4 Diabetes mellitus alf insulin use: with terminal gauger supervisor use PAD (peripheral artery disease) I73.9 Adenoma of right adrenal gland D35.01 Laterality: right Dyslipidemia associated with type 2 diabetes mellitus E11.69; E78.5 Persistent proteinuria R80.1 Proteinuria type: persistent Insulin pump in place Z96.41 Time Spent (min) 30
[2025-02-10 13:55] LABS: Glucose, Whole Blood 207 mg/dL (60-115)
--- OUTSIDE RECORDS SUMMARY | 2025-02-10 15:41 | XMS_ITS | Clinical Summary ---
Author Organization [facility] Address [address] [place] [address] Care Team Providers Care Enologist Name Role Phone Lyla Escalante MD Primary [...] age to complete this topic Care Teams Enologist Relationship Specialty Start Date End Date Lyla Escalante MD [address] [place] [address] PCP - General 06/18/23
== END 2025-02-10 14:57 | disposition home or self-care (01) ==
LOC: HO.ENCR 12:24
PROVIDERS: PCP Family Medicine; Visit Provider Student in an Organized Health Care Education/Training Program
DX: E11.42 Type 2 diabetes mellitus with diabetic polyneuropathy (principal); Z79.4 Long term (current) use of insulin; I73.9 Peripheral vascular disease, unspecified; D35.01 Benign neoplasm of right adrenal gland; E11.69 Type 2 diabetes mellitus with other specified complication; E78.5 Hyperlipidemia, unspecified; R80.1 Persistent proteinuria, unspecified; Z96.41 Presence of insulin pump (external) (internal)
CPT/HCPCS: 99214; G2211

== ENCOUNTER → 2025-02-10 12:23 | Outpatient (BNVA) | payer MEDICARE, MEDICAID, SELFPAY | PROVIDERS: PCP Family Medicine; Visit Provider Student in an Organized Health Care Education/Training Program | DX: E11.42 Type 2 diabetes mellitus with diabetic polyneuropathy (principal); I73.9 Peripheral vascular disease, unspecified; D35.01 Benign neoplasm of right adrenal gland; E11.69 Type 2 diabetes mellitus with other specified complication; E78.5 Hyperlipidemia, unspecified; R80.1 Persistent proteinuria, unspecified; Z96.41 Presence of insulin pump (external) (internal) | CPT/HCPCS: 82947; 99211; 99212 ==

== ENCOUNTER 2025-03-15 16:02 | Outpatient (AMB) | payer MEDICARE, MEDICAID, SELFPAY ==
--- NOTE | 2025-03-15 16:04 | MHC.AMDMED ---
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 Visit Reasons: 60 min Environmental Maintenance Worker Required: No Accompanied by: Daughter Allergies metformin Allergy (Unknown, Verified 02/10/25 13:45) dizziness fentanyl Adverse Reaction (Unknown, Verified 01/25/25 11:32) Vomiting [facility] Medical History (Updated 01/25/25 @ 12:27 by Rowan Lou MD) Insulin pump in place Dyslipidemia associated with type 2 diabetes mellitus Adrenal adenoma Hypertension Obesity due to excess calories Agoraphobia Stroke Asthma Peripheral neuropathy Depression Anxiety Class 1 obesity due to excess calories in adult Hyperlipidemia LDL goal <70 Type 2 diabetes mellitus with diabetic polyneuropathy Surgical History History of surgery Family History Mother Diabetes Father Diabetes Brother Hypertension Daughter Hypertension Social History Household Members: Children Alcohol intake: former Patient Tobacco Use Status: Current everyday Tobacco user Tobacco use type: Cigarette Cigarette Packs Per Day: 1 Cigarettes Per Day: 20.0 Substance Use Type: Marijuana Current occupational status: unemployed Assessment & Plan Assessment & Plan (1) Type 2 diabetes mellitus with diabetic polyneuropathy: Code(s): E11.42 - Type 2 diabetes mellitus with diabetic polyneuropathy Qualifiers: Diabetes mellitus exterminator termite insulin use: with exterminator termite use Qualified Code(s): E11.42 - Type 2 diabetes mellitus with diabetic polyneuropathy; Z79.4 - ocean transportation intermediary (current) use of insulin Plan: Patient presents for pump training for T slim pump and Dexcom G7CGM training today. [facility] User name: Pt's phone number [employer] Password: [email or web address] User name: [email or web address] Tandem password:? Patient was unable to set [place] password at today's visit due to not being able to download e-mail on patient's new phone The following topics were reviewed today: -Pump therapy basic concepts: Basal/bolus, insulin to carb ratio, correction factor, insulin on board -CGM settings(if integrated system): CGM graft views and trend arrows, alerts and alarms, Start new sensor Overall patient's glucose is well controlled. Insulin delivery settings Patient has decided that she is interested in using the TrueSteel infusion set. Patient reports she had called [facility] Medical regarding infusion set change, we are still waiting on CMN from [facility]. Suggested to patient she contact [facility] again to follow-up. Patient is currently not wearing her pump because she got a new telephone and it was not able to set up Dexcom G7 khai or tandem. At today's visit we reconnected Dexcom G7 to Dexcom G7 khai, and connected G7 sensor to T slim insulin pump. You were unable to complete set up of T connect khai, patient did not recall password and could not access e-mail on her new phone to reset password. Patient given additional samples of TruSteel so she can resume insulin pump therapy Patient understands the basic concepts of pump therapy, how to give insulin for meals and snacks, how to troubleshoot for hyper and hypoglycemia. Setting verified by [facility], no changes made to pump settings at today's visit Basal rate(s) (units/hour) : 12 AM? to 12 AM? 2.5 units / hr Bolus setting Insulin Carbohydrate Ratio (s) 12 AM? to 12 AM? 1:4 Correction Factor / Sensitivity Factor 12 AM? to 12 AM? 1:13 Active Insulin Time:? 5 hours Target(s): control IQ 12 AM? to 12 AM? 110 mg/dL Patient will follow up with [facility] as instructed Patient will contact [facility] with questions or concerns, patient given IT number to support in any technical issues related to insulin pump Coding Level of Care Code Est Pt Level 1 (42930) Diagnoses Type 2 diabetes mellitus with diabetic polyneuropathy, with long-term current use of insulin E11.42; Z79.4 Diabetes mellitus exterminator termite insulin use: with [facility] use
== END 2025-03-15 16:40 | disposition home or self-care (01) ==
LOC: HO.ENCR 16:02
PROVIDERS: PCP Family Medicine; Visit Provider Registered Nurse Diabetes Educator
DX: E11.42 Type 2 diabetes mellitus with diabetic polyneuropathy (principal); Z79.4 Long term (current) use of insulin

== ENCOUNTER → 2025-03-15 16:02 | Outpatient (BNVA) | payer MEDICARE, MEDICAID, SELFPAY | PROVIDERS: PCP Family Medicine; Visit Provider Registered Nurse Diabetes Educator | DX: E11.42 Type 2 diabetes mellitus with diabetic polyneuropathy (principal); Z79.4 Long term (current) use of insulin | CPT/HCPCS: 99211 ==

== ENCOUNTER 2025-04-12 15:06 | Outpatient (AMB) | payer MEDICARE, MEDICAID, SELFPAY ==
--- NOTE | 2025-04-12 15:41 | MHC.AMDMED ---
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 Visit Reasons: 60 min Benefit Specialist Required: No Accompanied by: Daughter Allergies metformin Allergy (Unknown, Verified 02/10/25 13:45) dizziness fentanyl Adverse Reaction (Unknown, Verified 01/25/25 11:32) Vomiting HPI Comprehensive Diabetes Asmnt Most Recent Diabetes Results: Microalb/Creat Ratio, (<30) 1525.4 ug/mg cr H 12/09/23 Cholesterol, (<200) 171 mg/dL 07/18/23 HDL Cholesterol, (>40) 54 mg/dL 07/18/23 Triglycerides, (<150) 180 mg/dL H 07/18/23 Creatinine, (0.5-1.4) 1.24 mg/dL 04/15/24 BUN, (9-16) 23 mg/dL H 04/15/24 Sodium, (135-145) 133 mmol/L L 04/15/24 Potassium, (3.3-5.1) 4.3 mmol/L 04/15/24 Chloride, (96-108) 100 mmol/L 04/15/24 Carbon Dioxide, (22-29) 23 mmol/L 04/15/24 Calcium, (8.4-10.2) 9.9 mg/dL Δ 04/15/24 AST, (5-31) 13 U/L Δ 04/20/21 ALT, (0-31) 13 U/L 04/20/21 Total Protein, (6.5-8.0) 7.2 g/dL 04/20/21 Albumin, (3.5-5.0) 4.4 g/dL 04/20/21 [facility] Medical History (Updated 01/25/25 @ 12:27 by Rowan Lou MD) Insulin pump in place Dyslipidemia associated with type 2 diabetes mellitus Adrenal adenoma Hypertension Obesity due to excess calories Agoraphobia Stroke Asthma Peripheral neuropathy Depression Anxiety Class 1 obesity due to excess calories in adult Hyperlipidemia LDL goal <70 Type 2 diabetes mellitus with diabetic polyneuropathy Surgical History History of surgery Family History Mother Diabetes Father Diabetes Brother Hypertension Daughter Hypertension Social History Household Members: Children Alcohol intake: former Patient Tobacco Use Status: Current everyday Tobacco user Tobacco use type: Cigarette Cigarette Packs Per Day: 1 Cigarettes Per Day: 20.0 Substance Use Type: Marijuana Current occupational status: unemployed Assessment & Plan Assessment & Plan (1) Type 2 diabetes mellitus with diabetic polyneuropathy: Code(s): E11.42 - Type 2 diabetes mellitus with diabetic polyneuropathy Qualifiers: Diabetes mellitus [facility] insulin use: with [facility] use Qualified Code(s): E11.42 - Type 2 diabetes mellitus with diabetic polyneuropathy; Z79.4 - equipment operator intermodal yard (current) use of insulin Plan: Patient presents for pump training for T slim pump and Dexcom G7CGM training today. Dexcom User name: Pt's phone number Dexcom Password: [email or web address] [employer] User name: [email or web address] Tandem password:? Patient is still unable to access e-mail on her new phone, so we are not able to connect insulin pump to [employer] khai The following topics were reviewed today: -Pump therapy basic concepts: Basal/bolus, insulin to carb ratio, correction factor, insulin on board -CGM settings(if integrated system): CGM graft views and trend arrows, alerts and alarms, Start new sensor Patient reports on 03/30/2025 she was admitted to [facility] in [place] for borderline DKA She has not been able to consistently wear insulin pump since hospital stay due to running out of Dexcom G7 sensors. Patient given sample Dexcom G7 sensor at today's visit, she reports that she will be able to machine operator picker new prescription for Dexcom G7 sensors on 04/13/2025 Patient stated she does have ketone strips at home, but reports that glucose was not elevated until the day she went to the hospital experience nausea and vomiting. Patient has upcoming appointment with Dr. Hernandez on 04/28/2025, she will be due for A1c at next visit Patient understands the basic concepts of pump therapy, how to give insulin for meals and snacks, how to troubleshoot for hyper and hypoglycemia. Setting verified by [facility], no changes made to pump settings at today's visit Basal rate(s) (units/hour) : 12 AM? to 12 AM? 2.5 units / hr Bolus setting Insulin Carbohydrate Ratio (s) 12 AM? to 12 AM? 1:4 Correction Factor / Sensitivity Factor 12 AM? to 12 AM? 1:13 Active Insulin Time:? 5 hours Target(s): control IQ 12 AM? to 12 AM? 110 mg/dL Patient will follow up with [facility] as instructed Patient will contact [facility] with questions or concerns, patient given IT number to support in any technical issues related to insulin pump Coding Level of Care Code Est Pt Level 1 (81929) Diagnoses Type 2 diabetes mellitus with diabetic polyneuropathy, with long-term current use of insulin E11.42; Z79.4 Diabetes mellitus watermelon inspector insulin use: with [facility] use
--- OUTSIDE RECORDS SUMMARY | 2025-04-12 21:41 | XMS_ITS | Clinical Summary ---
Author Organization [facility] Address [address] [place] [address] Phone Care Team Providers Care Branch Employment Coordinator Name Role Phone Lyla Escalante MD [...] tablet (100 mg total) by mouth daily. 12/18/20 24 Active hydrOXYzine HCL (ATARAX) 25 mg tabletIndications: Anxiety and depression Take 1 tablet (25 mg total) by mouth 4 (four) times a day. 04/15/20 Active topiramate (TOPAMAX) 100 mg tabletIndications: Anxiety and depression Take 1 tablet (100 mg total) by mouth at bedtime. 04/15/20 Active busPIRone (BUSPAR) 15 mg tabletIndications: Anxiety and depression Take 1 tablet (15 mg total) by mouth 2 (two) times a day. 04/15/20 Active albuterol HFA (ProAir HFA) 90 mcg/actuation [...] 1 (one) time each day. 90 each 11/24/19 25 026 Active atorvastatin (LIPITOR) 80 [...] 4 (four) times a day. 360 each 11/24/19 25 026 Active losartan (Cozaar) 50 mg tabletIndications: Primary hypertension Take 1 tablet (50 mg total) by mouth 1 (one) time each day. 90 each 1 11/24/19 25 026 Active clotrimazole-betam ethasone (LOTRISONE) 1-0.05 % creamIndications:I ntertrigo Apply topically 2 (two) times a day. 15 g 5 12/24/19 25 Active cyclobenzaprine (FLEXERIL) 5 mg tabletIndications: Muscle spasm of both lower legs TAKE 1 TABLET BY MOUTH AT BEDTIME NEEDED FOR MUSCLE SPASMS. 90 tablet 02/18/20 25 Active Active Problems Problem Noted Date [...] infarction 07/14 Overview (04/15/2024): Left hand weakness Assessment & Plan (11/23/2024 5:57 PM EDT): Continue aspirin/statin Carotid stenosis, right 08/02/2020 Overview (04/15/2024): [facility] [place] 07/19/2020 moderate focal stenosis prox R ICA, diffusely diminutive caliber R ICA distal to stenosis DM (diabetes mellitus), type 2 with peripheral vascular complications 08/02/2020 Assessment & Plan (11/23/2024 5:57 PM [...] 100mg nightly. Follows with Arti Hudson at [facility] in [place] . Has therapist and gets therapy weekly. Assessment & Plan (04/15/2024 4:29 PM EST): Stable Continue buspirone 15mg BID, lamotrigine 50mg BID, venlafaxine 150mg daily, hydroxyzine 25mg PRN, topiramate 100mg nightly. Follows with Arti Hudson at [facility] in [place] . Continue therapy weekly. Hyperlipidemia 07/16/2018 Assessment [...] 08/14/2016 Overview (04/15/2024): Patient is seen at [facility] endocrinology group Assessment & Plan (11/23/2024 [...] up with Dr. Hernandez in Endocrinlogy at [facility]. Continue insulin Tresiba and insulin sliding scale. Continue gabapentin 600mg QID for neuropathy. She is still waiting on insulin pump due to insurance delays Provided with number for [facility] to make an appointment. Referral was placed in March Assessment & Plan (04/15/2024 4:29 PM EST): Last A1c was in December was 10.6 She will continue follow-up with her nut chopper at [facility] as well as her insulin [...] Encounters Date Type Department Care Team Description 04/05/2025 Telephone Adult Medicine [facility] [address], [place] [phone] Lyla Escalante MD 03/22/2025 1:59 PM EST - 03/22/2025 11:59 PM EST Hospital Encounter Radiology Department [facility] [address], [place] [phone] Encounter for screening mammogram for malignant neoplasm of breast Discharge Disposition: Home or Self Care 03/22/2025 Results Follow-Up [address] [phone] Lyla Escalante MD 03/17/2025 3:00 PM EST Ancillary Procedure [facility] [address] [place] [phone] Systolic murmur 03/08/2025 3:15 PM EST Office Visit Orthopedic Surgery - [place] [address] [facility] [address] [place] [phone] Zuhair Gan, DPM Plantar fascial fibromatosis (Primary Dx); Dermatophytosis of nail; Pain in toe of right foot; Pain in toe of left foot; Diabetic mononeuropathy simplex (CMS/HCC V24, CMS/HCC V28); Type II diabetes mellitus with peripheral circulatory disorder (CMS/HCC V24, CMS/HCC V28) 03/05/2025 Results Follow-Up [address] [phone] Lyla Escalante MD from Last 3 Months Immunizations Immunization Administration [...] peripheral vascular complications ([facility] V24, [facility] V28) 08/02/2020 DX:DM (diabetes mellitus), type 2 with peripheral vascular complications (HCC) DM (diabetes mellitus), type 2 with neurological complications ([facility] V24, [facility] V28) 08/14/2016 DX:DM (diabetes mellitus), t ype 2 with neurological complications (HCC); COMMENT: Patient is seen at [facility] endocrinology group 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 ([facility] V24, [facility] V28) 03/05/2022 DX:DM type 2 causing eye di sease (HCC) History of cerebral embolic infarction 08/11/2019 DX:History of cerebral embol ic infarction; COMMENT: June 2019 Hemiparesis due to old cereb ral infarction ([facility] V24, [facility] V28) 07/14/2021 DX:Hemiparesis d ue to old cerebral infarction (HCC) Severe obesity with body mas s index (BMI) of 35.0 to 39.9 with serious comorbidity ([facility] V24, [facility] V28) 05/03/2014 DX:Severe obesity with body mass [...] your loved ones. For example, early childhood teacher or elderly care for an older [...] living situation? Unrecognized valu e 04/20/2024 Comments No Sex and Gender Information Value Date Recorded Sex Assigned at Female 11/03/2024 1:00 PM EDT Legal Sex Female 6:05 PM EDT Gender Identity Female 11/03/2024 1:00 PM EDT Sexual Orientation Straight 11/03/2024 1: 00 PM EDT Obstetrics History Para Term AB IAB SAB Ectopic Multiple Livin g Live Births 3 3 3 3 Date Outcome GA Total Labor Labor/2nd/3rd Weight Sex Type Anes PTL Monica A1 A5 Name Clin Term Term Term Last Filed Vital Signs Vital Sign Reading Time Taken Comments Blood Pressure 135/87 11/23/2024 12:40 PM EDT Pulse 97 11/23/2024 12:40 PM EDT Temperature 36.8 C (98.2 F) 11/23/2024 12:40 PM EDT Respiratory Rate 17 11/23/2024 12:40 PM EDT Oxygen Saturation 100% 11/09/2024 1:18 PM EDT Inhaled Oxygen Concentration - - Weight 99.8 kg (220 lb) 03/17/2025 3:34 PM EST Height 162.6 cm (5' 4 ) 03/17/2025 3:34 PM EST Body Mass Index 37.76 03/17/2025 3:34 PM EST Plan of Treatment Upcoming Encounters Date Type Department Care Team (Late st Contact Info) Description 05/17/2025 1:00 PM EST Office Visit Adult Medicine [address] [phone] Lyla Escalante MD [address] [place] [address] 06/14/2025 3:15 PM EST Office Visit Orthopedic Surgery - [place] [address] [phone] Zuhair Gan, DPM [address] [phone] Health Maintenance Due Date Last Done Comments Diabetes: Annual Foot Exam 1990 Diabetes: Annual [...] Annual BMP Blood Test 09/07/2025 09/07/2024, 01/14/2024 Breast Cancer Screening 03/22/2027 03/22/2025 Cholesterol Screening (Lipid Panel) 11/23/2029 11/23/2024 RSV [...] Procedure Name Priority Date/Time Associated Diagnosis Comments MG MAMMO DIGITAL SCREENING W HOMER BILAT Routine 03/22/2025 2:16 PM EST Encounter for screening mammogram for malignant neoplasm of breast TRANSTHORACIC ECHOCARDIOGRAM (TTE) COMPLETE Routine 03/17/2025 3:35 PM EST Systolic murmur HEPATITIS C ANTIBODY Routine 11/23/2024 1:24 PM EDT Need for hepatitis C screening test HEMOGLOBIN A1C Routine 11/23/2024 1:24 PM EDT DM (diabetes mellitus), type 2 with neurological complications (CMS/HCC V24, CMS/HCC V28) Diabetes mellitus with proteinuria (CMS/HCC V24, CMS/HCC V28) LIPID PANEL WITH REFLEX TO DIRECT LDL Routine 11/23/2024 1:24 PM EDT Mixed hyperlipidemia BASIC METABOLIC PANEL Routine 09/07/2024 2:58 PM EDT Iron deficiency anemia due to chronic blood loss Reactive thrombocytosis Hypertension, essential from Last 3 Months or Most Recently Relevant to Health Maintenance Results * MG Mammo Digital Screening w Homer bilat (03/22/2025 2:16 PM EST) Anatomical Region Laterality Modality Breast Bilateral Mammography 03/29/2025 9:18 AM EST Impressions 03/29/2025 9:39 AM EST No mammographic evidence of malignancy. BREAST DENSITY: B - There are scattered areas of fibroglandular density. BI-RADS CATEGORY: 2 - BENIGN RECOMMENDATION: Screening bilateral mammogram is recommended in 1 year. MAMMO LOCATION: [facility], [address] [place] [address], [address], . -------- FINAL REPORT -------- Dictated By: Shanel García Dictated Date: 03/29/2025 09:18 ET Assigned Physician: Shanel García Reviewed and Electronically Signed By: Shanel García Signed Date: 03/29/2025 09:39 ET Workstation ID: [id number] Transcribed By: Self Edit Transcribed Date: 03/29/2025 09:20 ET Narrative 03/29/2025 9:39 AM EST EXAM: Screening Mammogram CLINICAL: 44 years old, Female, routine annual exam. History of a left excisional biopsy. COMPARISON: This is a baseline exam. TECHNIQUE: Bilateral MLO and CC views were obtained digitally with 3-D mammogram (digital breast tomosynthesis). Computer-aided detection was utilized in evaluation of this exam (CAD). FINDINGS: Subtle postsurgical distortion in the upper outer left breast. No suspicious mass, architectural distortion, or suspicious calcifications. Procedure Note Shanel García MD - 03/29/2025 EXAM: Screening Mammogram CLINICAL: 44 years old, Female, routine annual exam. History of a leftexcisional biopsy. COMPARISON: This is a baseline exam. TECHNIQUE: Bilateral MLO and CC views were obtained digitally with 3-Dmammogram (digital breast tomosynthesis). Computer-aided detection wasutilized in evaluation of this exam (CAD). FINDINGS: Subtle postsurgical distortion in the upper outer left breast. Nosuspicious mass, architectural distortion, or suspicious calcifications. IMPRESSION: No mammographic evidence of malignancy. BREAST DENSITY: B - There are scattered areas of fibroglandular density. BI-RADS CATEGORY: 2 - BENIGN RECOMMENDATION: Screening bilateral mammogram is recommended in 1 year. MAMMO LOCATION: [facility], [address] [place] [address], [facility], . -------- FINAL REPORT -------- Dictated By: Shanel García Dictated Date: 03/29/2025 09:18 ET Assigned Physician: Shanel García Reviewed and Electronically Signed By: Shanel García Signed Date: 03/29/2025 09:39 ET Workstation ID: [id number] Transcribed By: Self Edit Transcribed Date: 03/29/2025 09:20 ET Lyla Escalante MD [facility] BI PROCEDURE S Final Result * (ABNORMAL) TRANSTHORACIC ECHOCARDIOGRAM (TTE) COMPLETE (03/17/2025 3:35 PM EST) Left Atrium Minor [place] 4.7 cm CV PACS Left Atrium Major [place] 5.3 cm CV PACS LA Area Sys (A2C) 18 cm2 CV PACS LA Area Sys (A4C) 21 cm2 CV PACS LA Volume (BP) 64 mL CV PACS RA Area 13.3 cm2 CV PACS RA 2D Volume 29 mL CV PACS AV Mean Gradient 5 mmHg CV PACS AV Mean Gradient 5 mmHg CV PACS AV Mean Gradient 5 mmHg CV PACS Ao VTI 32.4 cm CV PACS AV Peak Shivam 1.6 m/s CV PACS AV Peak Gradient 10 mmHg CV PACS AV Area Continuity Equation 2.0 cm2 CV PACS AV Area Peak Velocity 2.0 cm2 CV PACS Aortic Sinus Valsalva 3.3 cm CV PACS IVSD 1.0(A) 0.6 - 0.9 cm CV PACS LVIDD 4.2 3.8 - 5.2 cm CV PACS LVIDS 3.0 2.2 - 3.5 cm CV PACS LVOT Diameter 2.0 cm CV PACS LVOT Mean Shivam 0.7 m/s CV PACS LVOT Mean Grad 2 mmHg CV PACS LVOT Mean Grad 2 mmHg CV PACS LVOT Peak VTI 20.2 cm CV PACS LVOT Peak Shivam 1.0 m/s CV PACS LVOT Peak Gradient 4 mmHg CV PACS LVPWD 1.1(A) 0.6 - 0.9 cm CV PACS MV E' Tissue Velocity Lateral 8 cm/s CV PACS MV E' Tissue Velocity Septal 10 cm/s CV PACS LVOT Area 3.1 cm2 CV PACS LVOT Stroke Volume 63 mL CV PACS MV Mean Gradient 2 mmHg CV PACS MV Mean Gradient 2 mmHg CV PACS MV Mean Gradient 2 mmHg CV PACS MV VTI 21.2 cm CV PACS Mitral Valve Max Velocity 1.4 m/s CV PACS MV Peak Gradient 8 mmHg CV PACS MV Area Continuity Equation 3.0 cm2 CV PACS PV Acceleration Time 130 ms CV PACS PV Acceleration Time 116 ms CV PACS PV Acceleration Time 123 ms CV PACS RV Diastolic Basal Dimension 3.7 2.5 - 4.1 cm CV PACS RV S' 15 cm/s CV PACS TAPSE 24 mm CV PACS TR Peak Velocity 1.73 m/s CV PACS TR Peak Gradient 12 mmHg CV PACS LVOT Stroke Index 31 mL/m2 CV PACS Relative Wall Thickness ratio 0.52 CV PACS LVOT:AV VTI Index 0.62 CV PACS FS 29 % CV PACS LV Mass 2D 147 g CV PACS MV VTI:LVOT VTI ratio 1.0 CV PACS LVOT flow 220 mL/s CV PACS RA 2D Volume Index 14 mL/m2 CV PACS JOSÉ LUIS Index (VTI) 0.96 cm2/m2 CV PACS JOSÉ LUIS Index (Pk Shivam) 0.98 cm2/m2 CV PACS LVIDD Index 2.06 cm/m2 CV PACS LVIDS Index 1.47 cm/m2 CV PACS AV Velocity Ratio 0.63 CV PACS LA Volume Index (BP) 31 mL/m2 CV PACS LV Mass Index 2D 72 g/m2 CV PACS BSA 2.12 m2 CV PACS Right Ventricular Peak Systolic Pressure 15 mmHg CV PACS Est. RA Pressure 3 mmHg CV PACS Anatomical Region Laterality Modality Ultrasound Narrative 03/21/2025 9:11 PM EST Left ventricle cavity size is normal. Left ventricular systolic function is in the normal range with an ejection fraction of 55-60%. No regional LV wall motion abnormalities noted. Left ventricle mild concentric hypertrophy. Right ventricle cavity is normal. Right ventricular systolic function is normal. Mitral Valve: There is mild regurgitation. Left Ventricle Left ventricle cavity size is normal. There is mild concentric hypertrophy. Systolic function is normal with an ejection fraction of 55-60%. There are no regional LV wall motion abnormalities. Unable to assess diastolic function. Right Ventricle Right ventricle cavity appears normal. Systolic function is normal. Left Atrium Left atrium cavity size is normal. Right Atrium Right atrium cavity is normal. IVC/SVC Inferior vena cava structure is normal. RA pressures is estimated to be 3 mmHg (IVC diameter <21 mm and decreases >50% during inspiration). Mitral Valve The leaflets are mildly thickened. There is mild annular calcification. There is mild regurgitation. There is no evidence of mitral valve stenosis. Tricuspid Valve Tricuspid valve structure is normal. There is trace regurgitation. There is no evidence of tricuspid valve stenosis. The right ventricular systolic pressure is normal. The RVSP is estimated at 15 mmHg. Aortic Valve The aortic valve is trileaflet. The leaflets are mildly thickened. There is no significant regurgitation. There is no evidence of aortic valve stenosis. Pulmonic Valve Visualized portions of the pulmonic valve appear normal. There is trace pulmonic valve regurgitation. There is no evidence of pulmonic valve stenosis. Ascending Aorta The aorta appears normal in size. Pericardium Pericardium appears normal. There is no pericardial effusion. Study Details Overall the study quality was technically difficult. Wall Scoring Baseline Score Index: 1.00 The left ventricular wall motion is normal. Lyla Escalante MD CV ECHO PROCEDUR ES Final Result * Hepatitis C antibody (11/23/2024 1:24 PM EDT) [facility] Hepatitis C Antibody Negative Negative LAB CHEMISTRY METHOD 11/23/2024 8:29 PM EDT [facility] Blood Venous blood specimen / Unknown Venipuncture / Unknown 11/23/2024 1:24 PM EDT 11/23/2024 1:24 PM EDT Lyla Escalante MD LAB BLOOD ORDERA BLES Final Result [facility] [address] [place] [address], [place] [phone] * (ABNORMAL) Lipid panel with reflex to direct LDL (11/23/2024 1:24 PM EDT) [facility] Cholesterol 214(H) 0 - 200 mg/dL LAB CHEMISTRY METHOD 11/23/2024 4:54 PM EDT [facility] Triglycerides 93 0 - 150 mg/dL LAB CHEMISTRY METHOD 11/23/2024 4:54 PM EDT [facility] HDL 57 >=40 mg/dL LAB CHEMISTRY METHOD 11/23/2024 4:54 PM EDT [facility] LDL Calculated 138(H) 0 - 100 mg/dL LAB CHEMISTRY METHOD 11/23/2024 4:54 PM EDT [facility] VLDL Cholesterol Aubrey 18.6 mg/dL LAB CHEMISTRY METHOD 11/23/2024 4:54 PM EDT [facility] Non HDL Chol. (LDL+VLDL) 157(H) <145 mg/dL LAB CHEMISTRY METHOD 11/23/2024 4:54 PM EDT [facility] Chol/HDL Ratio 3.8 0.0 - 4.4 LAB CHEMISTRY METHOD 11/23/2024 4:54 PM EDT [facility] Blood Venous blood specimen / Unknown Venipuncture / Unknown 11/23/2024 1:24 PM EDT 11/23/2024 1:24 PM EDT Lyla Escalante MD LAB BLOOD ORDERA BLES Final Result Performing Organization Address [facility]/ZIP Co de Phone Number [facility] [address] [place] [address], [place] [phone] * (ABNORMAL) Hemoglobin A1c (11/23/2024 1:24 PM EDT) Hemoglobin A1C 10.0(H) <6.5 % LAB CHEMISTRY METHOD 11/24/2024 10:46 AM EDT [facility] Mean Bld Glu Estim. 240 mg/dL LAB CHEMISTRY METHOD 11/24/2024 10:46 AM EDT [facility] Blood Venous blood specimen / Unknown Venipuncture / Unknown 11/23/2024 1:24 PM EDT 11/23/2024 1:24 PM EDT Lyla Escalante MD LAB BLOOD ORDERA BLES Final Result Performing Organization Address [facility]/ZIP Co de Phone Number [facility] [address] [place] [address], [place] [phone] * (ABNORMAL) Basic metabolic panel (09/07/2024 2:58 PM EDT) Sodium 139 133 - 145 mmol/L LAB CHEMISTRY METHOD 09/07/2024 5:11 PM [facility] Potassium 4.6 3.5 - 5.5 mmol/L LAB CHEMISTRY METHOD 09/07/2024 5:11 PM [facility] Chloride 107 96 - 110 mmol/L LAB CHEMISTRY METHOD 09/07/2024 5:11 PM [facility] CO2 24 21 - 32 mmol/L LAB CHEMISTRY METHOD 09/07/2024 5:11 PM [facility] Anion Gap 8 3 - 11 LAB CHEMISTRY METHOD 09/07/2024 5:11 PM [facility] Glucose 104(H) 70 - 100 mg/dL LAB CHEMISTRY METHOD 09/07/2024 5:11 PM [facility] BUN 14 5 - 25 mg/dL LAB CHEMISTRY METHOD 09/07/2024 5:11 PM [facility] Creatinine 0.86 0.50 - 1.10 mg/dL LAB CHEMISTRY METHOD 09/07/2024 5:11 PM [facility] eGFR 86 >=60 mL/min/1. 73m2 LAB CHEMISTRY METHOD 09/07/2024 5:11 PM [facility] Comment:Calculation based on the Chronic Kidney Disease Epidemiology Collaboration (CKD-EPI) equation refit without adjustment for race. BUN/Creatinine Ratio 16.3 LAB CHEMISTRY METHOD 09/07/2024 5:11 PM [facility] Calcium 9.0 8.5 - 10.5 mg/dL LAB CHEMISTRY METHOD 09/07/2024 5:11 PM [facility] Blood Venous blood specimen / Unknown Venipuncture / Unknown 09/07/2024 2:58 PM EDT 09/07/2024 4:36 PM EDT us Vega Guardado MD LAB BLOOD ORDERABL ES Final Result [facility] [address] [place] [address], [place] [phone] from Last 3 Months or Most Recently Relevant to Health Maintenance Insurance [employer] MEDICARE ADVANTAGE MEDICAID [place] Care Teams Branch Employment Coordinator Relationship Specialty Start Date End Date Lyla Escalante MD [address] [place] [address] PCP - General Internal Medicine 12/18/23
--- OUTSIDE RECORDS SUMMARY | 2025-04-12 21:41 | XMS_ITS | Clinical Summary ---
Author Organization [facility] Prior to 09/26/24 Address [address] [place] [address] Care Team Providers Care Inventory Control Analyst Name Role Phone Lyla Escalante MD [...] age to complete this topic Care Teams Inventory Control Analyst Relationship Specialty Start Date End Date Lyla Escalante MD [address] [place] [address] PCP - General 06/18/23
--- OUTSIDE RECORDS SUMMARY | 2025-04-12 21:41 | XMS_ITS | Encounter Summary ---
Author Organization [facility] [address] Care Team Providers Care Cylinder Head Assembler Name Role Phone Lyla Escalante MD Primary Care Pr ovider Encounter Details Date Type Department Care Team (Late st Contact Info) Description 04/20/2024 Community Care Management [facility] [address] [place] [phone] Kat Almanzar Social History Tobacco Use [...] for your loved ones. For example, child care teacher or elderly care for an [...] 1:00 PM EST Office Visit Adult Medicine [address] [phone] Lyla Escalante MD [address] [place] [address] 06/14/2025 3:15 PM EST Office Visit Orthopedic Surgery - [address] [phone] Zuhair Gan, DPM 175 [facility] [address] [place] [phone] documented as of this encounter Visit Diagnoses Not on filedocumented in this encounter Additional Health Concerns Assessment Noted Time PHQ-9 Depression Total Score: 8 04/15/20 24 2:00 PM EST documented as of this encounter Care Teams Cylinder Head Assembler Relationship Specialty Start Date End Date Lyla Escalante MD [address] [place] [phone] PCP - General Internal Medicine 12/18/23 documented as of this encounter
--- OUTSIDE RECORDS SUMMARY | 2025-04-12 21:41 | XMS_ITS | Encounter Summary ---
Author Organization [facility] Address [address] [place] [address] Care Team Providers Care Acid Maker Name Role Phone Lyla Escalante MD Primary Care Pr ovider Encounter Details Date Type Department Care Team (Late st Contact Info) Description 03/05/2025 Results Follow-Up Adult Medicine [address] [phone] Lyla Escalante MD [address] [place] [address] Social History Tobacco Use Types Packs/Day Years [...] for your loved ones. For example, children's book author or elderly care for an older adult? [...] PM EDT documented as of this encounter Progress Notes * Bozena Booker RN - 04/02/2025 11:57 AM EST ----- Message from Birtt Escalante MD sent at 04/01/2025 7:43 PM EST ----- Pt no showed to appt yesterday. Pls call to reschedule for April. thanks ----- Message ----- From: Interface, Incoming Ancillary Results - Imaging Results [id number] Sent: 03/29/2025 9:44 AM EST To: Lyla Escalante MD I left pt a message to call the office at . documented in this encounter Plan of Treatment Upcoming Encounters Date Type Department Care Team (Late st Contact Info) Description 05/17/2025 1:00 PM EST Office Visit Adult Medicine [facility] [address] [place] [address] Lyla Escalante MD [address] [place] [address] 06/14/2025 3:15 PM EST Office Visit Orthopedic Surgery - [place] [address] [phone] Zuhair Gan, DPJimmie [address] [phone] documented as of this encounter Visit Diagnoses Not on filedocumented in this encounter Additional Health Concerns Assessment Noted Time PHQ-9 Depression Total Score: 8 04/15/20 2:00 PM EST documented as of this encounter Care Teams Acid Maker Relationship Specialty Start Date End Date Lyla Escalante MD [address] [place] [address] PCP - General Internal Medicine 12/18/23 documented as of this encounter
--- OUTSIDE RECORDS SUMMARY | 2025-04-12 21:41 | XMS_ITS ---
Author Organization [facility] Address [address] [place] [address] Phone Care Team Providers Care Chemical Reclamation Equipment Operator Name Role Phone Lyla Escalante MD Primary [...]
--- OUTSIDE RECORDS SUMMARY | 2025-04-12 21:41 | XMS_ITS | Encounter Summary ---
Author Organization [facility] Address [address] [place] [address] Care Team Providers Care Family Nurse Practitioner Name Role Phone Lyla Escalante MD Primary Care Pr ovider Encounter Details Date Type Department Care Team (Late st Contact Info) Description 03/22/2025 Results Follow-Up Adult Medicine [address] [phone] Lyla Escalante MD [address] [place] [address] Social History Tobacco Use Types Packs/Day Years [...] care for your loved ones. For example, manager child or elderly care for an older [...] 1:00 PM EST Office Visit Adult Medicine [address] [phone] Lyla Escalante MD [address] [place] [address] 06/14/2025 3:15 PM EST Office Visit Orthopedic Surgery - [place] [address] [phone] Zuhair Gan, DPM [address] [phone] documented as of this encounter Visit Diagnoses Not on filedocumented in this encounter Additional Health Concerns Assessment Noted Time PHQ-9 Depression Total Score: 8 04/15/20 24 2:00 PM EST documented as of this encounter Care Teams Family Nurse Practitioner Relationship Specialty Start Date End Date Lyla Escalante MD [address] [place] [phone] PCP - General Internal Medicine 12/18/23 documented as of this encounter
== END 2025-04-12 15:46 | disposition home or self-care (01) ==
LOC: HO.ENCR 15:06
PROVIDERS: PCP Family Medicine; Visit Provider Registered Nurse Diabetes Educator
DX: E11.42 Type 2 diabetes mellitus with diabetic polyneuropathy (principal); Z79.4 Long term (current) use of insulin

== ENCOUNTER 2025-04-12 15:06 | Outpatient (REF) | payer MEDICARE, MEDICAID, SELFPAY ==
[2025-04-12 17:41] LABS: Anion Gap 11 (12-20); Blood Urea Nitrogen 18 mg/dL (9-16); Calcium 10.0 mg/dL (8.4-10.2); Carbon Dioxide 25 mmol/L (22-29); Chloride 109 mmol/L (96-108); Estimated Glomerular Filt Rate 52; Potassium 4.4 mmol/L (3.3-5.1); Sodium 141 mmol/L (135-145)
== END 2025-04-12 15:07 | disposition home or self-care (01) ==
LOC: HO.LAB 15:06
PROVIDERS: Student in an Organized Health Care Education/Training Program; Absent Provider Internal Medicine Hypertension Specialist; PCP Family Medicine; Visit Provider Registered Nurse Diabetes Educator
DX: E11.42 Type 2 diabetes mellitus with diabetic polyneuropathy (principal); E11.51 Type 2 diabetes mellitus with diabetic peripheral angiopathy without gangrene; E11.69 Type 2 diabetes mellitus with other specified complication; E78.5 Hyperlipidemia, unspecified; I10 Essential (primary) hypertension; F17.210 Nicotine dependence, cigarettes, uncomplicated; Z79.4 Long term (current) use of insulin
CPT/HCPCS: 36415; 80048; 82088; 84244; 99211